=== PATIENT | female | born 2000 | race Caucasian/White ===

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

== ENCOUNTER → 2019-05-15 | Outpatient (CLI) | payer OTHER, SELFPAY ==
[2019-04-09 11:57] VITALS: BMI 24.0
--- NOTE | 2019-05-15 13:06 | RAD_ITS ---
STUDY: X-RAY CHEST REASON FOR EXAM: Female, 18 years old. Positive TB test TECHNIQUE: Frontal and lateral views of the chest COMPARISON: None. FINDINGS: The lungs are clear. There are no pleural effusions. There is no pneumothorax. The heart is normal in size. The visualized osseous structures are within normal limits. RAD/Chest PA and Lateral IMPRESSION: Clear lungs. Electronically Signed: Tobias Villareal, at 14:01 EDT Tel , Service support ,
[2019-05-15 14:07] LABS: T4 Free Direct 1.03 ng/dL (0.76-1.46); Thyroid Stim Hormone (TSH) 0.84 uIU/mL (0.358-3.74)
[2019-05-18 18:45] LABS: QNTFERON TB Mitogen Value > 10.00 IU/mL (.); QNTFERON TB Nil Value 0.07 IU/mL (.); QNTFERON TB1+ Ag Value 0.14 IU/mL (.); QNTFERON TB2+ Ag Value 0.09 IU/mL (.)
[2019-05-19 16:34] LABS: V-Zoster IgG (Immunity) 278 index (Immune >165)
[2019-05-19 16:35] LABS: QNTIFERON TB Positive Criteria Negative (Negative)
== END | disposition home or self-care (01) ==
LOC: MTLAB 13:04
PROVIDERS: Family Provider Pediatrics; PCP Pediatrics; Referring Provider Pediatrics; Visit Provider Pediatrics
DX: R76.11 Nonspecific reaction to tuberculin skin test without active tuberculosis (principal); E04.1 Nontoxic single thyroid nodule; Z86.19 Personal history of other infectious and parasitic diseases
CPT/HCPCS: 36415; 71046; 84439; 84443; 86480; 86787

== ENCOUNTER → 2019-09-09 | Outpatient (CLI) | payer OTHER, SELFPAY ==
[2019-09-09 06:25] VITALS: BMI 24.0
[2019-09-09 13:45] LABS: Absolute Lymphocyte Count 0.99 X10^3/uL (0.83-4.51); Absolute Neutrophil Count 3.6 X10^3/uL (2.0-7.7); Basophil# 0.02 X10^3/uL; Basophil% 0.4 % (0-1); Eosinophil# 0.09 X10^3/uL; Eosinophils% 1.7 % (0-5); Hematocrit 40.6 % (37-47); Hemoglobin 13.3 g/dL (12.0-15.0); Lymphocyte # 0.99 X10^3/ul (4.0); Lymphocyte % 18.5 % (19-41); Mean Corp Hgb Conc 32.8 g/dL (32-36); Mean Corpuscular Hgb 28.9 pg (27.0-32.0); Mean Corpuscular Volume 88.3 fL (81-99); Mean Platelet Vol. 9.4 fl (6.2-12.0); Monocyte# 0.61 X10^3/uL; Monocyte% 11.4 % (0-10); NRBC Flagged by Analyzer 0 % (0-5); Neutrophil # 3.62 X10^3/uL (2.7-7.7); Neutrophil % 67.8 % (47-70); Platelet Count 175 K/mm3 (150-450); RBC Distribution Width SD 42.1 fl (35.1-43.9); White Blood Count 5.3 K/mm3 (4.4-11.0)
[2019-09-09 14:02] LABS: AST(SGOT) 518 U/L (15-37); Bilirubin, Direct 0.17 mg/dL (0.00-0.30); LDH 281 U/L (84-246)
[2019-09-14 10:30] LABS: Immunoglobulin E 56 IU/mL (6-495)
== END | disposition home or self-care (01) ==
PROVIDERS: Family Provider Pediatrics; PCP Pediatrics; Referring Provider Internal Medicine Critical Care Medicine; Visit Provider Internal Medicine Critical Care Medicine
DX: J45.51 Severe persistent asthma with (acute) exacerbation (principal); J30.2 Other seasonal allergic rhinitis; Z79.899 Other long term (current) drug therapy
CPT/HCPCS: 36415; 82247; 82248; 82785; 83615; 84450; 85025

== ENCOUNTER → 2020-01-14 09:37 | Outpatient (CLI) | payer OTHER, SELFPAY ==
[2020-01-14 08:54] VITALS: BMI 25.0
--- NOTE | 2020-01-14 09:39 | RAD_ITS ---
STUDY: X-RAY CHEST REASON FOR EXAM: Female, 19 years old. ASTHMA -- general illness x 2 weeks, SOB TECHNIQUE: PA and lateral views of the chest. COMPARISON: 05/15/2019 FINDINGS: The lungs are clear and expanded. There is no demonstrated pleural abnormality. Normal size heart. Normal mediastinum and suzan. Normal visualized pulmonary arteries. Normal visualized aortic arch and descending thoracic aorta. Normal visualized thoracic spine. Normal visualized ribs, clavicles, and shoulders. There is no demonstrated abnormality of the visualized soft tissue structures of the upper abdomen. RAD/Chest PA and Lateral IMPRESSION: Normal x-ray examination of the chest. Electronically Signed: Sukhjinder Madrid MD at 13:49 EST Tel , Service support ,
== END ==
PROVIDERS: PCP Pediatrics; Referring Provider Nurse Practitioner Acute Care; Visit Provider Nurse Practitioner Acute Care
DX: J11.1 Influenza due to unidentified influenza virus with other respiratory manifestations (principal); R06.02 Shortness of breath
CPT/HCPCS: 71046; 87633

== ENCOUNTER → 2020-08-04 17:35 | Outpatient (CLI) | payer OTHER, SELFPAY ==
[2020-06-29 14:10] VITALS: BMI 24.0
== END ==
PROVIDERS: Referring Provider Family Medicine; Visit Provider Family Medicine
DX: Z03.818 Encounter for observation for suspected exposure to other biological agents ruled out (principal)
CPT/HCPCS: 87635; U0003

== ENCOUNTER → 2020-09-01 07:46 | Outpatient (CLI) | payer OTHER, SELFPAY ==
[2020-06-29 14:10] VITALS: BMI 24.0
== END ==
PROVIDERS: Referring Provider Family Medicine; Visit Provider Family Medicine
DX: Z03.818 Encounter for observation for suspected exposure to other biological agents ruled out (principal)
CPT/HCPCS: 87635; U0003

== ENCOUNTER → 2020-09-15 10:28 | Outpatient (CLI) | payer OTHER, SELFPAY ==
[2020-06-29 14:10] VITALS: BMI 24.0
== END ==
PROVIDERS: Referring Provider Family Medicine; Visit Provider Family Medicine
DX: Z03.818 Encounter for observation for suspected exposure to other biological agents ruled out (principal)
CPT/HCPCS: 87635; U0003

== ENCOUNTER → 2020-09-29 12:07 | Outpatient (CLI) | payer OTHER, SELFPAY ==
[2020-06-29 14:10] VITALS: BMI 24.0
== END ==
PROVIDERS: Referring Provider Family Medicine; Visit Provider Family Medicine
DX: Z03.818 Encounter for observation for suspected exposure to other biological agents ruled out (principal)
CPT/HCPCS: 87635; U0003

== ENCOUNTER → 2021-06-14 15:40 | Outpatient (CLI) | payer OTHER, SELFPAY ==
--- NOTE | 2021-06-14 15:45 | RAD_ITS ---
INDICATION: positive PPD EXAMINATION/TECHNIQUE: X-RAY - XR Chest 2 Views COMPARISON: None. FINDINGS: The lungs are clear. The cardiomediastinal silhouette is unremarkable. No pleural effusion or pneumothorax. No acute osseous abnormalities. RAD/Chest PA and Lateral IMPRESSION: No acute radiographic abnormalities. Specifically, no consolidation or cavitary lesions to suggest active TB. Electronically Signed: Owen Ulloa MD at 16:05 EDT Tel , Service support ,
== END ==
PROVIDERS: Referring Provider Nurse Practitioner Acute Care; Visit Provider Nurse Practitioner Acute Care
DX: R76.11 Nonspecific reaction to tuberculin skin test without active tuberculosis (principal)
CPT/HCPCS: 71046

== ENCOUNTER 2021-12-14 08:00 | Outpatient (CLI) | payer OTHER, SELFPAY ==
--- NOTE | 2021-12-14 08:09 | MRI_ITS ---
STUDY: MRI BRAIN WITH AND WITHOUT CONTRAST REASON FOR EXAM: Female, 21 years old. SECTOR OR ARCUATE DEFECTS BILATERAL TECHNIQUE: Standardized multiplanar fat and water weighted pulse sequences were obtained. IV 13 cc dotarem was administered for the contrast portion of the examination. COMPARISON: None. FINDINGS: Normal size of the ventricles and extra-axial spaces for the patient''s age. Normal white matter tracts of the supratentorial brain. There is no evidence for recent intracranial ischemia or other cause of cytotoxic edema on diffusion weighted imaging (DWI). For Normal T2* images of the brain without demonstrated susceptibility artifact. There is no demonstrated hemosiderin stain. Normal bilateral basal ganglia. Normal thalami. There is no extra-axial fluid accumulation. Normal flow voids within the major intracranial circulation suggesting patency by spin echo criteria. Normal venous enhancement. There is no enhancing intra-axial or extra-axial abnormality. Normal sella turcica, pituitary gland, infundibular stalk, optic chiasm and hypothalamus. Normal tectal plate and pineal gland. Normal midbrain, mera and medulla. Normal cerebellum. Normal basal cisterns. Normal bilateral temporal bones. Normal bilateral internal auditory canals. No demonstrated orbital abnormality, within the constraints of a routine brain study. Normal visualized paranasal sinuses. Normal calvarium and skull base. Normal visualized soft tissue structures. Normal visualized upper cervical spine. MRI/Brain W/WO Contrast IMPRESSION: Normal unenhanced and enhanced MRI of the brain. Electronically Signed: Sukhjinder Madrid MD at 9:51 EST ,
== END 2021-12-14 23:59 | disposition short-term general hospital (02) ==
PROVIDERS: PCP Family Medicine; Referring Provider Ophthalmology; Visit Provider Ophthalmology
DX: H53.433 Sector or arcuate defects, bilateral (principal)
CPT/HCPCS: 70553; A9575

== ENCOUNTER → 2023-11-12 | Outpatient (CLI) | payer OTHER, SELFPAY ==
--- NOTE | 2023-11-12 11:46 | US_ITS ---
STUDY: THYROID ULTRASOUND REASON FOR EXAM: Female, 23 years old. NODULES TECHNIQUE: Ultrasound evaluation of the thyroid was performed with real-time and static skinner-scale imaging. COMPARISON: Thyroid ultrasound dated February 11, 2018 FINDINGS: RIGHT LOBE: The right lobe of the thyroid gland measures 4.4 x 2.0 x 1.7 cm. There is a heterogeneous echotexture. Diffuse primarily hypodense well circumscribed nodules are scattered throughout the thyroid gland most likely due to hyperplastic nodules/multinodular goiter. The largest nodule on the right measures 2.0 x 1.5 cm in the lower pole. LEFT LOBE: The left lobe of the thyroid gland measures 3.7 x 1.3 x 1.2 cm. There is a heterogeneous echotexture. Diffuse primarily hypodense well circumscribed nodules are scattered throughout the left lobe of the thyroid gland most likely due to hyperplastic nodules/multinodular goiter. The largest nodule on the right measures 0.8 cm in the upper pole. ISTHMUS: The isthmus measures 5 mm. The regional lymph nodes are normal. US/Thyroid IMPRESSION: Interval development of multiple nodules throughout the thyroid gland, increased in number from what was seen on the 2018 study 1. Multinodular goiter Electronically Signed: Lance Kinney MD at 23:58 EST ,
== END | disposition home or self-care (01) ==
PROVIDERS: PCP Family Medicine; Referring Provider Family Medicine; Visit Provider Family Medicine
DX: E04.2 Nontoxic multinodular goiter (principal)
CPT/HCPCS: 76536

== ENCOUNTER → 2025-10-07 | Outpatient (CLI) | payer OTHER, SELFPAY | END | disposition home or self-care (01) | LOC: LABSPEC 16:22 | PROVIDERS: PCP Family Medicine; Visit Provider Nurse Practitioner Family | DX: N89.8 Other specified noninflammatory disorders of vagina (principal) | CPT/HCPCS: 87070; 87205 ==

== ENCOUNTER → 2025-10-13 | Outpatient (CLI) | payer OTHER, SELFPAY ==
--- NOTE | 2025-10-13 11:00 | VAGW_PTH ---
PATIENT: XOCHITL SIMPSON LOC: [facility] U#:[id number] AGE/SX: ROOM: RE10/13/[address]: Dr. Gail Ruiz DO : 2000 BED: DIS: 10/13/2025 SPEC #: [id number] RECD: 10/13/25 11:25 STATUS: PATRICIA JEISON #: [id number] SANDRITA: 10/13/25 11:[address]: Gail Ruiz DEPT: SURGICAL PATHOLOGY RECD BY: Semaj Moran ENTERED: 10/13/25 11:47 SP TYPE: VAG WALL OTHR DR: Dr. Montse Almeida MD Tissues: A - Vagina, NOS Procedures: Surgery Specimen Level IV HEADER OPERATION: Vaginal wall biopsy PRE-OP DIAGNOSIS: Vaginal lesion TISSUE SUBMITTED: A- Vaginal wall lesion MICROSCOPIC DIAGNOSIS A. Vaginal wall, lesion, biopsy: - Polypoid granulation tissue. MICROSCOPIC DESCRIPTION Slides are reviewed. GROSS DESCRIPTION A. Received in formalin labeled patient's name and date of are multiple red tissue fragments, 0.4 x 0.4 x 0.1 cm in aggregate. Entirely submitted in 1 cassette. Entirety of the specimen may not survive processing. PR 10/13/2025 CPT:53911
--- OUTSIDE RECORDS SUMMARY | 2025-10-13 12:27 | XMS RPT_ITS | CCD ---
Author Organization [facility] Care Team Providers Care Area Captain Name Role Phone MELANI DUONG Attending Unavailable IMCA Referring Unavailable IMCA Primary Care Unavailable MELANI DUONG Attending Unavailable IMCA Referring Unavailable IMCA Primary Care Unavailable MELANI DUONG Referring Unavailable IMCA Primary Care Unavailable MELANI DUONG Attending Unavailable IMCA Referring Unavailable IMCA Primary Care Unavailable MELANI DUONG Attending Unavailable IMCA Referring Unavailable IMCA Primary Care Unavailable MELANI DUONG Referring Unavailable IMCA Primary Care Unavailable Dr. Montse Almeida Primary Care Provider Dr. Montse Almeida Referring Provider Dr. Dexter Peraza Attending Provider [phone] Dexter Peraza MD Unavailable [phone] Bronson Perez MD Unavailable [phone] Montse Almeida MD Primary Care Provider Melani Duong MD Unavailable Montse Almeida MD Primary Care Provider SHIPMAN, YASSIN Referring Unavailable MONTSE ALMEIDA Primary Care Unavailable ROSALEE WEISS Referring Unavailable MONTSE ALMEIDA Primary Care Unavailable ROSALEE WEISS Attending Unavailable SELF Referring Unavailable MONTSE ALMEIDA Primary Care Unavailable Montse Almeida MD Primary Care Provider SHIPMAN, YASSIN Referring Unavailable MONTSE ALMEIDA Primary Care Unavailable SHIPMAN, YASSIN Referring Unavailable MIEDEL, MONTSE E Primary Care Unavailable SHIPMAN, YASSIN Attending Unavailable SHIPMAN, YASSIN Referring Unavailable MIEDEL, MONTSE E Primary Care Unavailable SHIPMAN, YASSIN Referring Unavailable MIEDEL, MONTSE E Primary Care Unavailable SHIPMAN, YASSIN Referring Unavailable MIEDEL, MONTSE E Primary Care Unavailable SHIPMAN, YASSIN Referring Unavailable MIEDEL, MONTSE E Primary Care Unavailable SHIPMAN, YASSIN Attending Unavailable SHIPMAN, YASSIN Referring Unavailable MIEDEL, MONTSE E Primary Care Unavailable SHIPMAN, YASSIN Referring Unavailable MIEDEL, MONTSE E Primary Care Unavailable SELF Referring Unavailable SHIPMAN, YASSIN Attending Unavailable MIEDEL, MONTSE E Primary Care Unavailable SHIPMAN, YASSIN Referring Unavailable MIEDEL, MONTSE E Primary Care Unavailable Miedel, Montse Primary Care Unavailable Miedel, Montse Referring Unavailable Hailee JEFFREY, Delaney Attending Unavailable Miedel, Montse Referring Unavailable Darleen Pascual Attending Unavailable John Kirby Attending Unavailable Miedel, Montse Primary Care Unavailable Allergies Allergy Classification Reported Allergen(s) Allergy Type Date of Onset Reaction(s) Facility (15 sources) Seasonal allergy; Translations: [SEASONAL ALLERGIES] Propensity to adverse reactions (disorder) 7 Cough [facility] Repository (15 sources) rifapentine; Translations: [RIFAPENTINE] Drug Allergy 9 Other: See Comments [facility] (2 sources) Environmental Allergies: Uncoded; Translations: [Environmental Allergies: Uncoded] Allergy to substance 3 SINUS CONGESTION [facility] (1 source) rifapentine Drug Allergy 5 [facility] Repository Medications Current Medications Medication Drug Class(es) Dates Sig (Normalized) Sig (Original) [id number] actuat albuterol 0.09 mg/actuat metered dose inhaler (16 sources) beta2-Adrenergic Agonist Start: 11-16-2021 End: 05-31-2023 take 1 puff(s) by inhalation every four hours Albuterol Sulfate Active 1 PUFF INHALATION Q4H 8.5 May 31, 2023 11:24am Start: 02-14-2018 End: 11-16-2021 take 1 puff(s) by inhalation every four hours Albuterol Sulfate Discontinued 1 PUFF INHALATION Q4H February 13, 2018 11:00pm November 16, 2021 8:09am ALBUTEROL SULFAT E (PROAIR HFA INHALATION) Inhale as instructed. Active ALBUTEROL SULFAT E (PROAIR HFA INHALATION) Inhale as instructed. 0 Active Comment on above: Inhale as instructed . azelastine hydrochloride 0.206 mg/actuat metered dose nasal spray (16 sources) Histamine-1 Receptor Antagonist Start: 0 End: 3 take 1 spray(s) nasal route twice daily Azelastine Active 1 SPRAY INTRANASAL TWICE A DAY 3 March 25, 2023 12:19pm administer into each nostril azelastine HCl ( AZELASTINE NASAL) Use in the nose. Active azelastine HCl ( AZELASTINE NASAL) Use in the nose. 0 Active Comment on above: Use in the nose. fexofenadine hydrochloride 180 mg oral tablet (17 sources) Histamine-1 Receptor Antagonist Start: 11-20-19 End: 10-30-20 take 1 tablet by mouth once daily fexofenadine (CHRISTINE) 180 mg tablet Take 1 tablet by mouth once daily. 04/03/2019 Active Comment on above: Take 1 tablet by nissa once daily. fluticasone propionate 0.05 mg/actuat metered dose nasal spray (12 sources) Corticosteroid Start: 02-17-20 fluticasone (FLONASE) 50 mcg/actuation nasal spray instill 1 spray into each nostril one to two times a day 02/16/2019 Active Comment on above: instill 1 spray into each nostril one to two times a day Fluticasone Furoate-Vilanterol (18 sources) Corticosteroid, beta2-Adrenergic Agonist Start: 10-30-20 Fluticasone Furoate-Vilanterol (Breo Ellipta) 200-25 mcg/dose blister with device Active 1 INH INHALATION Q24H October 30, 2023 8:09am Start: 12-18-2022 End: 10-30-2023 Fluticasone Furoate-Vilanter ol (Breo Ellipta) 200-25 mcg/dose blister with device Discontinued 1 INH INHALATION Q24H December 18, 2022 9:32am October 30, 2023 8:10am Start: 10-18-2022 End: 12-18-2022 Fluticasone Furoate-Vilanter ol (Breo Ellipta) 200-25 mcg/dose blister with device Discontinued 1 INH INHALATION Q24H October 18, 2022 2:34pm December 18, 2022 9:32am Start: 12-05-2020 End: 10-18-2022 Fluticasone Furoate-Vilanter ol (Breo Ellipta) 200-25 mcg/dose blister with device Discontinued 1 INH INHALATION Q24H December 05, 2020 12:15pm October 18, 2022 2:39pm Start: 04-29-2020 End: 12-05-2020 Fluticasone Furoate-Vilanter ol (Breo Ellipta) 200-25 mcg/dose blister with device Discontinued 1 INH INHALATION Q24H 60 April 29, 2020 7:27am December 05, 2020 12:16pm Start: 02-14-2018 End: 04-29-2020 Fluticasone Furoate-Vilanter ol (Breo Ellipta) 200-25 mcg/dose blister with device Discontinued 1 INH INHALATION Q24H February 13, 2018 11:00pm April 29, 2020 7:27am Start: 12-23-2017 fluticasone-vi lanterol (BREO ELLIPTA) 200-25 mcg/dose inhaler 12/23/2017 Active levalbuterol 0.417 mg/ml inhalation solution (20 sources) beta2-Adrenergic Agonist Start: 11-27-2019 End: 10-18-2022 take 1.25 mg by inhalation every four hours Levalbuterol Hcl (Xopenex) 1.25 mg/3 mL solution for nebulization Active 1.25 MG INHALATION Q4H October 18, 2022 2:38pm Start: 02-14-2018 End: 11-27-2019 Levalbuterol Hcl (Xopenex Co ncentrate) 1.25 mg/0.5 mL solution for nebulization Discontinued 1.25 MG INHALATION Q4H November 17, 2019 2:16pm November 27, 2019 1:40pm Levalbuterol HCl (XOPENEX) 1.25 mg/0.5 mL nebulizer solution Use 1 Ampule via nebulizer every 4 hours as needed. Active Comment on above: Use 1 Ampule via neb ulizer every 4 hours as needed. mometasone furoate 0.05 mg/actuat metered dose nasal spray (16 sources) Corticosteroid Start: 8 End: 3 take 1 spray(s) nasal route once daily Mometasone Active 2 SPRAY INTRANASAL DAILY November 22, 2022 1:06pm administer into each nostril End: 12-14-2024 MOMETASONE FUROATE (NASONEX NASAL) Use in the nose. 12/14/2024 Discontinued (Dosage adjustment) MOMETASONE FUROA TE (NASONEX NASAL) Use in the nose. Active MOMETASONE FUROA TE (NASONEX NASAL) Use in the nose. 0 Active Comment on above: Use in the nose. montelukast 10 mg oral tablet (20 sources) Leukotriene Receptor Antagonist Start: 8 End: 3 take 1 tablet by mouth once daily montelukast (SINGULAIR) 10 mg tablet Take 10 mg by mouth once daily. 10 05/09/2018 Active Comment on above: Take 10 mg by mouth once daily. Completed/Discontinued Medications Medication Drug Class(es) Dates Sig (Normalized) Sig (Original) 30 actuat aclidinium bromide 0.4 mg/actuat dry powder inhaler (1 source) End: 02-17-2024 aclidinium bromide (TUDORZA PRESSAIR) 400 mcg/actuation aepb inhaler Inhale 1 Puff as instructed. 0 02/17/2024 Discontinued (Discontinued by Patient) Comment on above: Inhale 1 Puff as ins tructed. amoxicillin 875 mg / clavulanate 125 mg oral tablet (1 source) Penicillin-class Antibacterial Start: 10-07-2018 End: 11-20-2018 take 1 tablet by mouth twice daily Amoxicillin-Pot Clavulanate (Augmentin) 875-125 mg tablet Discontinued 1 TABLET PO TWICE A DAY October 07, 2018 12:00am November 20, 2018 7:36am azithromycin 250 mg oral tablet (3 sources) Macrolide Antimicrobial Start: 01-07-2020 End: 01-14-2020 take 250 mg by mouth once daily Azithromycin Discontinued 250 MG PO daily January 07, 2020 12:00am January 14, 2020 9:07am Start: 11-10-2018 End: 11-20-2018 take 250 mg by mouth once daily Azithromycin Discontinued 250 MG PO daily November 10, 2018 12:00am November 20, 2018 7:36am Start: 07-22-2018 End: 07-28-2018 take 250 mg by mouth once daily Azithromycin Discontinued 250 MG PO daily July 21, 2018 11:00pm July 28, 2018 9:55am benzonatate 200 mg oral capsule (2 sources) Non-narcotic Antitussive Start: 11-12-2018 End: 10-18-2022 take 200 mg by mouth three times daily Benzonatate Discontinued 200 MG PO THREE TIMES A DAY February 18, 2019 10:28am October 18, 2022 2:33pm dexamethasone 6 mg oral tablet (1 source) Corticosteroid Start: 11-21-2021 End: 12-11-2021 take 1 tablet by mouth once daily Dexamethasone (Decadron) 6 mg tablet Discontinued 6 MG PO DAILY November 21, 2021 12:00am December 11, 2021 7:51am doxycycline hyclate 100 mg oral tablet (2 sources) Tetracycline-class Drug Start: 01-14-2020 End: 06-29-2020 take 100 mg by mouth twice daily Doxycycline Hyclate Discontinued 100 MG PO TWICE A DAY January 14, 2020 12:00am June 29, 2020 1:09pm Start: 02-24-2019 End: 04-09-2019 take 100 mg by mouth twice daily Doxycycline Hyclate Discontinued 100 MG PO TWICE A DAY February 23, 2019 11:00pm April 09, 2019 10:21am 21 day ethinyl estradiol 0.149166 mg/hr / etonogestrel 0.005 mg/hr vaginal system (18 sources) Progestin, Estrogen Start: 08-11-2024 End: 12-14-2024 Etonogestrel-Ethinyl Estradiol (ELURYNG) 0.12-0.015 mg/24 hr vaginal ring Use 1 Each vaginally as directed. Insert vaginally and leave in place for 3 consecutive weeks, then remove for 1 week. 3 Each 3 08/11/2024 12/14/2024 Discontinued (Duplicate Entry) Start: 10-18-2023 ELURYNG 0.12-0 .015 mg/24 hr vaginal ring INSERT RING VAGINALLY, WEAR FOR 3 WEEKS, AND REMOVE FOR [address] NEW RING AND REPEAT. 10/18/2023 Active Comment on above: INSERT RING VAGINALL Y, WEAR FOR 3 WEEKS, AND REMOVE FOR [address] NEW RING AND REPEAT. 60 actuat formoterol fumarate 0.005 mg/actuat / mometasone furoate 0.1 mg/actuat metered dose inhaler (1 source) Corticosteroid, beta2-Adrenergic Agonist End: take 2 puff(s) by inhalation twice daily mometasone-formoter ol (DULERA) 100-5 mcg/actuation inhaler Inhale 2 Puffs as instructed twice daily. 0 02/17/2024 Discontinued (Discontinued by Patient) Comment on above: Inhale 2 Puffs as in structed twice daily. 12 hr guaiFENesin 1200 mg extended release oral tablet (1 source) Start: End: take 1200 mg by mouth every twelve hours Guaifenesin Discontinued 1200 MG PO Q12H July 21, 2018 11:00pm October 07, 2018 3:04pm ipratropium bromide 0.2 mg/ml inhalation solution (14 sources) Anticholinergic Start: End: take 0.25 mg by inhalation every eight hours Ipratropium [place] Discontinued 0.25 MG INHALATION Q8H 150 February 27, 2019 2:34pm October 18, 2022 2:32pm ipratropium (ATR OVENT) 0.02 % nebulizer solution Use 0.5 mg via nebulizer four times daily. Active Comment on above: Use 0.5 mg via nebul izer four times daily. isoniazid 300 mg oral tablet (2 sources) Antimycobacterial Start: 01-14-20 End: 06-29-20 take 300 mg by mouth once daily Isoniazid Discontinued 300 MG PO DAILY January 14, 2020 12:00am June 29, 2020 1:09pm Start: 09-09-2019 End: 01-14-2020 Isoniazid Discontinued PO Oc tober 2018 11:00pm January 14, 2020 9:15am levoFLOXacin 500 mg oral tablet (1 source) Quinolone Antimicrobial Start: 07-28-2018 End: 10-07-2018 take 500 mg by mouth once daily Levofloxacin Discontinued 500 MG PO DAILY July 27, 2018 11:00pm October 07, 2018 3:04pm loratadine 10 mg oral tablet (1 source) Start: 02-14-2018 End: 02-18-2019 take 1 tablet by mouth once daily Loratadine (Claritin) 10 mg tablet Discontinued 10 MG PO daily February 13, 2018 11:00pm February 18, 2019 10:15am nystatin [id number] unt/ml oral suspension (3 sources) Polyene Antifungal Start: 01-14-2020 End: 10-18-2022 Nystatin Discontinued 5 ML MUCOUS MEM THREE TIMES A DAY December 11, 2021 8:08am October 18, 2022 2:32pm swish and swallow 5 cc three times per day for 10 days predniSONE 10 mg oral tablet (13 sources) Start: 11-16-2021 End: 12-11-2021 Prednisone Discontinued 10 MG PO daily November 24, 2021 8:45am December 11, 2021 7:51am take 4 tabs for three days, then 3 tabs for three days, then 2 tabs for three days, then 1 tab for 3 days Start: 08-19-2020 End: 12-14-2020 Prednisone Discontinued 10 M G PO daily August 18, 2020 11:00pm December 14, 2020 8:53am take 4 tabs for three days, then 3 tabs for three days, then 2 tabs for three days, then 1 tab for 3 days Start: 01-14-2020 End: 03-17-2020 Prednisone Discontinued 10 M G PO daily January 14, 2020 12:00am March 17, 2020 6:53am take 4 tabs for three days, then 3 tabs for three days, then 2 tabs for three days, then 1 tab for 3 days Start: 09-09-2019 End: 01-14-2020 take 10 mg by mouth once daily Prednisone Discontinued 10 MG PO DAILY January 07, 2020 12:50pm January 14, 2020 9:07am Start: 02-21-2019 End: 04-09-2019 Prednisone Discontinued 10 M G PO daily February 23, 2019 11:00pm April 09, 2019 10:21am take 4 tabs for three days, then 3 tabs for three days, then 2 tabs for three days, then 1 tab for 3 days Start: 11-20-2018 End: 12-30-2018 Prednisone Discontinued 10 M G PO daily November 20, 2018 12:00am December 30, 2018 12:36pm take 4 tabs for three days, then 3 tabs for three days, then 2 tabs for three days, then 1 tab for 3 days Start: 07-22-2018 End: 11-20-2018 take 60 mg by mouth once daily at mealtime Prednisone Discontinued 60 MG PO daily November 14, 2018 12:00am November 20, 2018 7:37am administer with food or milk Problems Active Problems Problem Classification Problem Date Documented Da te Episodic/Chronic Asthma (2 sources) Asthma; Translations: [Unspecified asthma, uncomplicated] 10-30-2023 Chronic Chronic obstructive pulmonary disease and bronchiectasis (1 source) Chronic obstructive pulmonary disease, unspecified; Translations: [Chronic obstructive pulmonary disease, unspecified] Onset: 03-04-2025 Chronic Disorders of teeth and jaw (1 source) Loss of teeth due to extraction; Translations: [Partial loss of teeth, unspecified cause, unspecified class] 12-18-2019 Episodic Genitourinary symptoms and ill-defined conditions (1 source) Polyuria; Translations: [Polyuria] 12-14-2024 Episodic Immunizations and screening for infectious disease (1 source) Mantoux: positive; Translations: [Nonspecific reaction to tuberculin skin test without active tuberculosis] 06-12-2021 Episodic Mycoses (1 source) Candidiasis of mouth; Translations: [Candidal stomatitis] 12-11-2021 Episodic Other endocrine disorders (1 source) Polycystic ovary syndrome; Translations: [Polycystic ovarian syndrome] 10-30-2023 Chronic Other screening for suspected conditions (not mental disorders or infectious disease) (1 source) Cancer cervix screening status; Translations: [Encounter for screening for malignant neoplasm of cervix] 08-11-2024 Episodic Other skin disorders (1 source) Hirsutism; Translations: [Hirsutism] 08-11-2024 Episodic Other upper respiratory disease (1 source) Seasonal allergy; Translations: [Other seasonal allergic rhinitis] 02-17-2019 Chronic Other upper respiratory disease (1 source) Other seasonal allergic rhinitis; Translations: [Allergic rhinitis, cause unspecified] 10-30-2023 Chronic Other upper respiratory infections (1 source) Posterior rhinorrhea; Translations: [Postnasal drip] 02-17-2019 Episodic Thyroid disorders (20 sources) Thyroid nodule; Translations: [Nontoxic single thyroid nodule] Onset: 02-17-2024 12-18-2019 Chronic Unclassified (2 sources) Thyroid mass Onset: 03-17-2019 Past or Other Problems Problem Classification Problem Date Documented Da te Episodic/Chronic Other skin disorders (1 source) Hirsutism; Translations: [Hirsutism] Onset: 08-11-2024 Episodic Results Test Name Value Interpretation Reference Range Facil ity Health Economist Office Visit Reporton 04-08-2025 Health Economist Office Visit Report [facility] [address], [address] [place] [address] OFFICE VISIT Date of Service: 04/08/25 MR#: [id number] Acct: [id number] Name: MOJGAN SIMPSON Rep #: [id number] : 2000 Provider: MILADY Sierra Age/Sex: 24/F [place] [facility] [place]: Signed Intake Vital Signs 07/20/24 09:21 03/04/25 08:02 04/08/25 10:50 Height 5 ft 7 in 5 ft 7 in 5 ft 7 in Weight: 156 lb 15.506 oz 145 lb 150 lb 2 oz BMI 24.5 22.7 23.5 BP 124/86 H 111/69 131/82 H Blood Pressure Location Lt brachial Position Sitting Respiration 14 18 Pulse 87 68 Pulse Source Monitor Temp 98 F 97.4 F L Temperature Source Temporal Artery Pulse Oximetry (%) 98 98 Oxygen Delivery Method room air 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) Chief Complaint: Annual Technical Editor Required: No Is patient in pain?: No Allergies Environmental Allergies: Uncoded Allergy (Intermediate, Verified 03/04/25 13:20) SINUS CONGESTION rifapentine Allergy (Intermediate, Verified 03/04/25 13:20) shaking and fatigue Medications ???Medication ???Instructions ???Recorded ???Confirmed ???Type etonogestrel 0.12 mg-ethinyl vag ring vaginal 10/30/23 04/08/25 History estradiol 0.015 mg/24 hr vaginal ring (EluRyng) albuterol sulfate 90 mcg/actuation 1 puff inhalation Q4H #8.5 grams 03/04/25 04/08/25 Rx aerosol inhaler azelastine 205.5 mcg (0.15 %) 1 spray intranasal BID #3 ea 03/0404/08/25 Rx nasal spray fexofenadine 180 mg tablet 180 mg PO DAILY #60 tabs 03/04/25 04/08/25 Rx ([facility]) fluticasone furoate 200 1 inh inhalation Q24H #90 ea 03/0404/08/25 Rx mcg-vilanterol 25 mcg/dose inhalation powder (Breo Ellipta) levalbuterol HCl 1.25 mg/3 mL 1.25 mg (3 mL) inhalation Q4H #90 03/04/25 04/08/25 Rx solution for nebulization mL mometasone 50 mcg/actuation nasal 2 spray intranasal DAILY #17 gram s 03/04/25 04/08/25 Rx spray montelukast 10 mg tablet 10 mg PO QPM #30 tabs 03/04/25 Rx Is last menstrual period known: Yes Last Menstrual Period: 03/24/25 Post menopausal: No Patient : No : No [facility] History PCOS (polycystic ovarian syndrome) PND (post-nasal drip) Seasonal allergies Uninodular thyroid nodule Asthma Surgical History History of wisdom tooth extraction Family History Sister Asthma Brother Asthma Social History (Updated 04/08/25 @ 10:54 by Jacki Manning) household members: spouse current occupational status: employed current occupation: [employer] Smoking Status: Never smoker alcohol intake: never substance use type: does not use seatbelt use: always do you feel safe at home: Yes additional social history: - Joaquim- Nurse History 0 Elective abortions Hx Para Spontaneous abortions Hx # Term Pregnancies Ectopic pregnancies Hx # Pregnancies Multiple births # of living children HPI Encounter for routine gynecological examination Details: MOJGAN ALARCON is a 24 year old who presents for annual exam. She would like to discuss her PCOS as well as control. Last PAP:07/2024 @ [facility] History of abnormal PAP: No Last mammogram: N/A History of abnormal mammogram: N/A Colon cancer screening:Age 44 Other preventative health care screenings:Montse Almeida Female Reproductive History Last Menstrual Period: 03/24/25 Cycle Length: 21-35 Questions: metorrhagia: No, sexually active: Yes, dyspareunia: No and PCB: No ROS Const Constitutional: Denies chills, fatigue, fever(s), headache(s) or weight loss Eyes Eyes: Denies change in vision ENT ENT: Denies dizziness Resp Resp: Denies cough GI GI: Denies abdominal pain, constipation or nausea : Denies difficulty voiding, dysuria, hematuria, nipple discharge, pelvic pain, prolapse symptoms, urinary incontinence, vaginal discharge, vaginal dryness, vaginal odor or vaginal pruritus Skin Skin/Breast: Denies alopecia, rash, breast mass, breast pain, breast skin changes or nipple discharge Neuro Neuro: Denies dizziness Psych Psych: Denies anxiety or depression Endo Endo: Denies cold intolerance, excessive sweating or heat intolerance Exam Const General: cooperative, healthy appearing, comfortable, no acute distress, well groomed and well hydrated Nutritional Appearance: well nourished Orientation: alert, awake and oriented x3 HENMT Head: normal to inspection and normocephalic Ears: hearing grossly normal bilaterally and external ears normal Nose: external nose normal Face and sinus: normal facial (more content not included)... Normal [facility] Pulmonary Visit Reporton Pulmonary Visit Report [facility] Pulmonary Medicine of [address] [place] [address] OFFICE VISIT Date of Service: 03/04/25 MR#: [id number] Acct: [id number] Name: MOJGAN ALARCON Rep #: [id number] : 2000 Provider: MILADY Stephen Age/Sex: 24/F Location: [facility] [place].[facility] Status: Signed Assessment and Plan Assessment and Plan (1) Asthma: Status: Chronic Qualifiers: Asthma severity: moderate Asthma persistence: persistent Asthma complication type: uncomplicated Qualified Code(s): J45.40 - Moderate persistent asthma, uncomplicated (2) PND (post-nasal drip): Status: Chronic (3) Seasonal allergies: Status: Chronic Medications: Refilled albuterol sulfate 90 mcg/actuation 1 puff inhalation Q4H 8.5 grams 11RF azelastine administer into each nostril 1 spray intranasal BID 3 ea 3RF J44.9 - Chronic obstructive pulmonary disease, unspecified fexofenadine (Christine Allergy) 180 mg PO DAILY 60 tabs 11RF fluticasone furoate-vilanterol 200-25 mcg/dose (Breo Ellipta) 1 inh inhalation Q24H 90 ea 12RF mometasone 50 mcg/actuation administer into each nostril 2 sprays intranasal DAILY 17 grams 6RF montelukast 10 mg PO QPM 30 tabs 11RF levalbuterol HCl 1.25 mg (3 mL) inhalation Q4H 90 mL 6RF Plan Details Additional Comments: Stable. No signs of exacerbation of asthma/allergies today. No change in maintenance medications. No additional testing at this time. Contact the office with any signs of new or worsening symptoms. Follow-up in 1 year. Follow Up: 1 Year HPI Appt for refills Chief Complaint: routine follow up HPI Comments Details: This patient presents to the office today to follow-up on her asthma and seasonal allergies. She is ambulatory and currently on room air. She has not recently been seen in the ED or urgent care for any respiratory illness. She has not required any antibiotics or prednisone for any breathing problems. She is a lifelong never smoker. She is compliant with the use of Breo 1 puff daily. She does report rinsing her mouth out after each use. She is also compliant with Singulair, Christine and Flonase daily. She denies any shortness of breath. She does not have any cough, sputum production or hemoptysis. She reports sinus congestion and drainage. She is not having any wheezing, chest tightness, chest pain or palpitations. Intake Vital Signs 07/20/24 09:21 03/04/25 08:02 Height 5 ft 7 in 5 ft 7 in Weight: 145 lb BMI 22.7 BP 111/69 Blood Pressure Location Lt brachial Position Sitting Respiration 18 Pulse 68 Pulse Source Monitor Temp 97.4 F L Temperature Source Temporal Artery Pulse Oximetry (%) 98 Oxygen Delivery Method room air Intake Visit Reasons: Appt for refills Chief Complaint: 6 M FU Technical Editor Required: No Accompanied by: Self Allergies Environmental Allergies: Uncoded Allergy (Intermediate, Verified 03/04/25 13:20) SINUS CONGESTION rifapentine Allergy (Intermediate, Verified 03/04/25 13:20) shaking and fatigue Medications ???Medication ???Instructions ???Recorded ???Confirmed ???Type etonogestrel 0.12 mg-ethinyl vag ring vaginal 10/30/23 03/04/25 History estradiol 0.015 mg/24 hr vaginal ring (EluRyng) albuterol sulfate 90 mcg/actuation 1 puff inhalation Q4H #8.5 grams 03/04/25 03/04/25 Rx aerosol inhaler azelastine 205.5 mcg (0.15 %) 1 spray intranasal BID #3 ea 03/0403/04/25 Rx nasal spray fexofenadine 180 mg tablet 180 mg PO DAILY #60 tabs 03/04/25 03/04/25 Rx (Christine Allergy) fluticasone furoate 200 1 inh inhalation Q24H #90 ea 03/0403/04/25 Rx mcg-vilanterol 25 mcg/dose inhalation powder (Breo Ellipta) levalbuterol HCl 1.25 mg/3 mL 1.25 mg (3 mL) inhalation Q4H #90 03/04/25 03/04/25 Rx solution for nebulization mL mometasone 50 mcg/actuation nasal 2 spray intranasal DAILY #17 gram s 03/04/25 03/04/25 Rx spray montelukast 10 mg tablet 10 mg PO QPM #30 tabs 03/04/25 Rx PFSH Medical History PCOS (polycystic ovarian syndrome) PND (post-nasal drip) Seasonal allergies Uninodular thyroid nodule Asthma Surgical History History of wisdom tooth extraction Family History Sister Asthma Brother Asthma Social History Smoking Status: Never smoker alcohol intake: never substance use type: does not use Review of Systems Resp Respiratory: Yes as per HPI Exam Const Constitutional: Positive conversant, cooperative, in no acute respiratory distress, healthy appearing, well developed, well nourished (more content not included)... Normal [facility] CNOVon 12-14-2024 CNOV Office Visit (ENAGST ) MOJGAN ALARCON ([id number]) 2000 F Date Time Provider Department 12/14/24 1:40 PM GREG SHIPMAN During your visit today, we recorded the following information about you: Pulse Blood pressure Weight Height 101/minute 139/85 67.1 kg 1.651 m Greg Shipman MD 12/14/2024 2:50 PM Signed PCP: Montse Almeida MD. Subjective The history is provided by the patient. Mojgan Alarcon is a 24 year old White female with PMHx of asthma who presented to the endocrine clinic for hyperthyroidism evaluation and management History of present illness Initial History: (02/17/24) The patient has been followed by endocrine surgery for stable thyroid nodularity with dominant 2.1 cm in the right side. Nodule was first noted around 2017 by the patient which was evaluated by biopsy and came back benign. The patient has been feeling off lately. She has noticed fine tremor mostly at work for the past couple months. 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 Interval History: Patient reports feeling okay overall. She has been noticing drinking more water especially after eating associated with frequent urination. She wakes up about 1-2 times at night to urinate Review of Systems Cardiovascular: Negative for palpitations. Genitourinary: Positive for frequency. Neurological: Negative for tremors. Endo/Heme/Allergies: Positive for polydipsia. 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 fluticasone (FLONASE) 50 mcg/actuation nasal spray instill 1 spray into each nostril one to two times a day ELURYNG 0.12-0.015 mg/24 hr vaginal ring INSERT RING VAGINALLY, WEAR FOR 3 WEEKS, AND REMOVE FOR [address] NEW RING AND REPEAT. azelastine HCl (AZELASTINE NASAL) Use in the nose. montelukast (SINGULAIR) 10 mg tablet Take 10 mg by mouth once daily. 10 fluticasone-vilantero l (BREO ELLIPTA) 200-25 mcg/dose inhaler ALBUTEROL SULFATE (PROAIR HFA INHALATION) Inhale as instructed. Levalbuterol HCl (XOPENEX) 1.25 mg/0.5 mL nebulizer solution Use 1 Ampule via nebulizer every 4 hours as needed. ipratropium (ATROVENT) 0.02 % nebulizer solution Use 0.5 mg via nebulizer four times daily. No current facility-administered medications for this visit. Objective BP 139/85 Pulse 101 Ht 5' 5 (1.65m) Wt 148 lb (67.1kg) BMI 24.63 kg/(m2). Physical examination Physical Exam Vitals and nursing note reviewed. Constitutional: General: She is not in acute distress. Neck: Thyroid: No thyromegaly. Cardiovascular: Rate and Rhythm: Normal rate and regular rhythm. Heart sounds: Normal heart sounds. Pulmonary: Effort: No respiratory distress. Breath sounds: Normal breath sounds. Neurological: General: No focal deficit present. Mental Status: She is alert. Psychiatric: Mood and Affect: Affect normal. Labs and imaging data: Reviewed Latest Ref Rng 11/19/2023 02/17/2024 TSI Qualitative Negative Positive ! TSI <0.55 IU/L 1.56 (H) TSH 0.270 - 4.200 mIU/L <0.005 (L) 0.006 (L) THYROID PEROXIDASE ANTIBODY <5.6 IU/mL 7.9 (H) Free T4 0.9 - 1.7 ng/dL 1.4 T3 79 - 165 ng/dL 169 (H) Latest Ref Rng 11/24/2024 TSH 0.270 - 4.200 mIU/L 0.525 Free T4 0.9 - 1.7 ng/dL 1.1 T4 5.5 - 10.2 ug/dL 9.1 Thyroid ultrasound on 03/03/2019 Multinodular thyroid gland as described above. Findings are similar to comparison study 02/11/2018. The right thyroid lobe is measured 4.6 cm longitudinal by 2 cm AP by 1.5 cm transverse. There is redemonstration of a mixed solid cystic hypoechoic nodule posterior lower lobe measured 2.1 x 1.7 x 1.5 cm in size. This compares to a previous measurement of 2.3 x 1.6 x 1.7 cm. There are two additional solid hypoechoic nodules within the lobe measuring 0.3 cm and 0.4 cm in size. The left thyroid lobe is measured 3.7 x 1.1 x 1.3 cm in size. There is a solid hypoechoic nodule redemonstrated within the posterior upper lobe measured 0.5 x 0.4 x 0.4 cm in size. This compares to previous measurement of 0.6 x 0.3 x 0.5 (more content not included)... Normal [facility] Comprehensive metabolic 2000 panelon 12-14-2024 Albumin [Mass/Vol] 4.2 g/dL Normal 3.9-4.9 [facility] Comment on above: Order Comment: Speci men Type: BLOOD SPECIMENOrdering Facility: [facility] Address: [address] [place] [id number] Performed By: #### 2 4323-8 ####[facility] LABORATORYCLIA [id number] [place] [address] [place] ALP [Catalytic activity/Vol] 58 U/L Normal 34-123 [facility] Comment on above: Order Comment: Speci men Type: BLOOD SPECIMENOrdering Facility: [facility] Address: [address] [place] [address] Performed By: #### 2 4323-8 ####[facility] LABORATORYCLIA [id number] [place] [address] [place] ALT With P-5'-P [Catalytic activity/Vol] 8 U/L Normal 7-38 [facility] Comment on above: Order Comment: Speci men Type: BLOOD SPECIMENOrdering Facility: [facility] Address: [address] [place] [address] Performed By: #### 2 4323-8 ####[facility] LABORATORYCLIA [id number] [address] Anion gap [Moles/Vol] 11 mmol/L Normal 8-15 [facility] Comment on above: Order Comment: Speci men Type: BLOOD SPECIMENOrdering Facility: [facility] Address: [address] [place] [address] Performed By: #### 2 4323-8 ####[facility] LABORATORYCLIA [id number] [address] [place] [facility] AST With P-5'-P [Catalytic activity/Vol] 11 U/L Low 13-35 [facility] Comment on above: Order Comment: Speci men Type: BLOOD SPECIMENOrdering Facility: [facility] Address: [address] [place] [address] Performed By: #### 2 4323-8 ####[facility] LABORATORYCLIA [id number] [address] [place] Bilirubin [Mass/Vol] 0.3 mg/dL Normal 0.2-1.3 [facility] Comment on above: Order Comment: Speci men Type: BLOOD SPECIMENOrdering Facility: [facility] Address: [address] [place] [address] Performed By: #### 2 4323-8 ####[facility] LABORATORYCLIA [id number] [place] [address] [place] Calcium [Mass/Vol] 9.4 mg/dL Normal 8.5-10.2 [facility] Comment on above: Order Comment: Speci men Type: BLOOD SPECIMENOrdering Facility: [facility] Address: [address] [place] [address] Performed By: #### 2 4323-8 ####[facility] LABORATORYCLIA [id number] [place] [address] [place] Chloride [Moles/Vol] 102 mmol/L Normal 98-107 [facility] Comment on above: Order Comment: Speci men Type: BLOOD SPECIMENOrdering Facility: [facility] Address: [address] [place] [address] Performed By: #### 2 4323-8 ####[facility] LABORATORYCLIA [id number] [address] [place] CO2 [Moles/Vol] 26 mmol/L Normal 22-30 [facility] Comment on above: Order Comment: Speci men Type: BLOOD SPECIMENOrdering Facility: [facility] Address: [address] [place] [address] Performed By: #### 2 4323-8 ####[facility] LABORATORYCLIA [id number] [place] [address] [place] Creatinine [Mass/Vol] 0.64 mg/dL Normal 0.58-0.96 [facility] Comment on above: Order Comment: Speci men Type: BLOOD SPECIMENOrdering Facility: [facility] Address: [address] [place] [address] Performed By: #### 2 4323-8 ####[facility] LABORATORYCLIA [id number] [address] Creatinine and Glomerular filtration rate.predicted panel (S/P/Bld) 126 mL/min/1.73m??? Normal >=60 [facility] Comment on above: Order Comment: Speci men Type: BLOOD SPECIMENOrdering Facility: [facility] Address: [address] [place] [address] Result Comment: Debora mated Glomerular Filtration Rate (eGFR) is calculated using the 2020 CKD-EPI creatinine equation. This equation utilizes serum creatinine, sex, and age as parameters. The creatinine assay has traceable calibration to isotope dilution-mass spectrometry. Refer to KDIGO guidelines for clinical interpretation. In patients with unstable renal function, e.g. those with acute kidney injury, the eGFR may not accurately reflect actual GFR. Performed By: #### 2 4323-8 ####[facility] LABORATORYCLIA [id number] [place] [address] [place] Glucose [Mass/Vol] 101 mg/dL High 74-99 [facility] Comment on above: Order Comment: Specarthur holloway Type: BLOOD SPECIMENOrdering Facility: [facility] Address: [address] [place] [address] Result Comment: The [place] Diabetes Association (ADA) provides guidance for cutoff values for fasting glucose and random glucose. The ADA defines fasting as no caloric intake for at least 8 hours. Fasting plasma glucose results between 100 to 125 mg/dL indicate increased risk for diabetes (prediabetes). Fasting plasma glucose results greater than or equal to 126 mg/dL meet the criteria for diagnosis of diabetes. In the absence of unequivocal hyperglycemia, results should be confirmed by repeat testing. In a patient with classic symptoms of hyperglycemia or hyperglycemic crisis, random plasma glucose results greater than or equal to 200 mg/dL meet the criteria for diagnosis of diabetes. Reference: Standards of Medical Care in Diabetes 2016, [place] Diabetes Association. Diabetes Care. 2016.39(Suppl 1). Performed By: #### 2 4323-8 ####[facility] LABORATORYCLIA [id number] [place] [address] [place] Potassium [Moles/Vol] 4.0 mmol/L Normal 3.7-5.1 [facility] Comment on above: Order Comment: Burke holloway Type: BLOOD SPECIMENOrdering Facility: [facility] Address: [address] [id number] Performed By: #### 2 4323-8 ####[facility] LABORATORYCLIA [id number] [place] [address] [place] Protein [Mass/Vol] 6.9 g/dL Normal 6.3-8.0 [facility] Comment on above: Order Comment: Speci men Type: BLOOD SPECIMENOrdering Facility: [facility] Address: [address] [place] [address] Performed By: #### 2 4323-8 ####[facility] LABORATORYCLIA [id number] [address] [place] Sodium [Moles/Vol] 139 mmol/L Normal 136-144 [facility] Comment on above: Order Comment: Speci men Type: BLOOD SPECIMENOrdering Facility: [facility] Address: [address] [place] [address] Performed By: #### 2 4323-8 ####[facility] LABORATORYCLIA [id number] [place] [address] [place] Urea nitrogen [Mass/Vol] 10 mg/dL Normal 7-21 [facility] Comment on above: Order Comment: Speci men Type: BLOOD SPECIMENOrdering Facility: [facility] Address: [address] [place] [address] Performed By: #### 2 4323-8 ####[facility] LABORATORYCLIA [id number] [address] [place] HbA1c (Bld)on 12-14-2024 Average glucose Estimated from glycated hemoglobin (Bld) [Mass/Vol] 94 mg/dL Normal [facility] Comment on above: Order Comment: Speci men Type: BLOOD SPECIMENOrdering Facility: [facility] Address: [address] [place] [address] Result Comment: eAG: (Estimated average glucose) is a calculated value from HgbA1c and is inside outside sales representative of the average blood glucose level in the last 2-3 month period. Performed By: #### 5 5454-3 ####[facility] LABCLIA [id number] [place] [address] [place] HbA1c (Bld) [Mass fraction] 4.9 % Normal 4.3-5.6 [facility] Comment on above: Order Comment: Speci men Type: BLOOD SPECIMENOrdering Facility: [facility] Address: [address] [place], [place] [id number] Result Comment: [place] Diabetes Association guidelines indicate that patients with HgbA1c in the range 5.7-6.4% are at increased risk for development of diabetes, and intervention by lifestyle modification may be beneficial. HgbA1c greater or equal to 6.5% is considered diagnostic of diabetes. Performed By: #### 5 5454-3 ####[facility] LABCLIA [id number] [id number] [address] [place] US THYROID/PARATHYROIDon US THYROID/PARATHYROID * * *Final Report* * * DATE OF EXAM: Dec 08 2024 9:05AM AWU 1048 - US THYROID/PARATHYROID / PROCEDURE REASON: multiple diagnoses * * * * Physician Interpretation * * * * EXAMINATION: THYROID ULTRASOUND CLINICAL HISTORY: Graves' disease Thyroid nodule TECHNIQUE: Sonography and Doppler imaging of the thyroid was performed. Images were obtained and stored in a permanent archive. MQ: UST_1 COMPARISON: Thyroid uptake 03/26/2024 RESULT: Right Lobe: 4.7 x 1.8 x 1.8 cm; homogeneous echogenicity, expected vascular flow. Left Lobe: 4.0 x 1.1 x 1.5 cm; homogeneous echogenicity, expected vascular flow. Isthmus: 0.3 cm The most suspicious thyroid nodule(s) (up to four) as below: NODULE 1: Location: Right lower pole posteriorly Size: 2.3 x 1.1 x 1.7 cm Characteristics: Composition: Solid or almost completely solid, 2 points Echogenicity: Hypoechoic, 2 points Shape: Kinrr-kecx-uexd, 0 points Margin: Smooth, 0 points Echogenic foci (add points for all that apply): None, 0 points Internal vascularity: absent Interval growth: Stable since 2018 TI-RADS Category: TR4 ACR Recommendation: Stable for greater than 5 years, as per clinical note FNA performed. NODULE 2: Location: Right upper pole Size: 0.6 x 0.4 x 0.4 cm Characteristics: Composition: Solid or almost completely solid, 2 points Echogenicity: Isoechoic, 1 point Shape: Btnet-wzug-opcw, 0 points Margin: Smooth, 0 points Echogenic foci (add points for all that apply): None, 0 points Internal vascularity: absent Interval growth: No prior available for comparison TI-RADS Category: TR3 ACR Recommendation: TI-RADS 3 nodule. No FNA or further imaging is advised. NODULE 3: Location: Left upper pole Size: 0.7 x 0.5 x 0.7 cm Characteristics: Composition: Solid or almost completely solid, 2 points Echogenicity: Hypoechoic, 2 points Shape: Sruoy-syir-pfzb, 0 points Margin: Smooth, 0 points Echogenic foci (add points for all that apply): None, 0 points Internal vascularity: absent Interval growth: No significant growth given differences in technique TI-RADS Category: TR4 ACR Recommendation: TI-RADS 4 nodule. No FNA or follow-up imaging is advised. NODULE 4: Location: Left lower pole Size: 1.0 x 0.3 x 0.6 cm Characteristics: Composition: Solid or almost completely solid, 2 points Echogenicity: Hypoechoic, 2 points Shape: Eesxw-fnqe-gqtc, 0 points Margin: Smooth, 0 points Echogenic foci (add points for all that apply): None, 0 points Internal vascularity: present Interval growth: Stable compared to the outside exam of 10/2023 TI-RADS Category: TR4 ACR Recommendation: TI-RADS 4 nodule. Follow up imaging in 1, 2, 3 and 5 years is advised. IMPRESSION: Stable posterior right thyroid nodule as noted on 2018 and for which correlation with FNA results is recommended. Other smaller nodules present, which consider follow-up depending on risk factors and comorbidities. ACR recommendations are strictly based on the size and imaging appearance at the time of the exam and do not consider stability or previous biopsy results. [employer]: [employer] Transcribe Date/Time: Dec 09 2024 2:36P Dictated by : JERAD KLINE MD This examination was interpreted and the report reviewed and electronically signed by: JERAD KLINE MD on Dec 09 2024 2:44PM EST [id number] N [facility]24 DIAMOND Telephone (ENAGST) GERIMOJGAN ROBYN ([id number]) 2000 F Date Time Provider Department 11/30/24 GREG SHIPMAN During your visit today, we recorded the following information about you: Gabriel Dyer LPN 11/30/2024 1:27 PM Signed Patient called in and said she has an appointment on the , she is questioning whether she should get the thyroid ultrasound done here or elsewhere. Gabriel Dyer LPN November 30, 2024 1:26 PM Allergies As of Date: 11/30/2024 Noted Allergy Reaction RIFAPENTINE 07/23/2019 14 - Other: See Comments Comments: Flu-Like symptoms (fever and body aches lastin ~24 hours) SEASONAL ALLERGIES 04/14/2017 3 - Cough Date Reviewed: 08/11/2024 Reviewed by: Rosalee Weiss MD - Fully Assessed Reason for Visit: Patient Question [4877] Prescriptions as of 11/30/2024 - Etonogestrel-Ethinyl Estradiol (ELURYNG) 0.12-0.015 mg/24 hr vaginal ring Use 1 Each vaginally as directed. Insert vaginally and leave in place for 3 consecutive weeks, then remove for 1 week. - fexofenadine (CHRISTINE) 180 mg tablet Take 1 tablet by mouth once daily. - fluticasone (FLONASE) 50 mcg/actuation nasal spray instill 1 spray into each nostril one to two times a day - ELURYNG 0.12-0.015 mg/24 hr vaginal ring INSERT RING VAGINALLY, WEAR FOR 3 WEEKS, AND REMOVE FOR [address] NEW RING AND REPEAT. - azelastine HCl (AZELASTINE NASAL) Use in the nose. - montelukast (SINGULAIR) 10 mg tablet Take 10 mg by mouth once daily. - fluticasone-vilantero l (BREO ELLIPTA) 200-25 mcg/dose inhaler - MOMETASONE FUROATE (NASONEX NASAL) Use in the nose. - ALBUTEROL SULFATE (PROAIR HFA INHALATION) Inhale as instructed. - Levalbuterol HCl (XOPENEX) 1.25 mg/0.5 mL nebulizer solution Use 1 Ampule via nebulizer every 4 hours as needed. - ipratropium (ATROVENT) 0.02 % nebulizer solution Use 0.5 mg via nebulizer four times daily. Problem List As Of Date 11/30/2024 Noted Resolved Hyperthyroidism [E05.90] 06/11/2024 Graves' disease [E05.00] 06/11/2024 Encounter Status:Closed by GREG SHIPMAN on 11/30/24 [facility] CNPN Telephone (ENAGST) MOJGAN ALARCON ([id number]) 2000 F Date Time Provider Department 11/30/24 GREG SHIPMAN ENSEUNST During your visit today, we recorded the following information about you: Greg Shipman MD 11/30/2024 5:02 PM Signed Please schedule thyroid ultrasound Majo Cerda PSS 12/02/2024 2:31 PM Addendum Referral Coordination Patient scheduled for:[place] Location:[place] Date: 12-07-23 Time:8:45 Prep for test:none Patient informed: spoke to patient and she voiced understanding ,21 morning till [address] [place] JAMES Lu December 02, 2024 1:13 PM Allergies As of Date: 11/30/2024 Noted Allergy Reaction RIFAPENTINE 07/23/2019 14 - Other: See Comments Comments: Flu-Like symptoms (fever and body aches lastin ~24 hours) SEASONAL ALLERGIES 04/14/2017 3 - Cough Date Reviewed: 08/11/2024 Reviewed by: Rosalee Weiss MD - Fully Assessed Reason for Visit: Procedure [88] Cmt: Thyroid ultrasound Primary Visit Diagnosis:Graves' disease [E05.00] Other Visit Diagnosis:Thyroid nodule [E04.1] Order(s):US THYROID/PARATHYROID [[id number]] Order #: [id number] FUTURE Prescriptions as of 12/02/2024 - Etonogestrel-Ethinyl Estradiol (ELURYNG) 0.12-0.015 mg/24 hr vaginal ring Use 1 Each vaginally as directed. Insert vaginally and leave in place for 3 consecutive weeks, then remove for 1 week. - fexofenadine (CHRISTINE) 180 mg tablet Take 1 tablet by mouth once daily. - fluticasone (FLONASE) 50 mcg/actuation nasal spray instill 1 spray into each nostril one to two times a day - ELURYNG 0.12-0.015 mg/24 hr vaginal ring INSERT RING VAGINALLY, WEAR FOR 3 WEEKS, AND REMOVE FOR [address] NEW RING AND REPEAT. - azelastine HCl (AZELASTINE NASAL) Use in the nose. - montelukast (SINGULAIR) 10 mg tablet Take 10 mg by mouth once daily. - fluticasone-vilantero l (BREO ELLIPTA) 200-25 mcg/dose inhaler - MOMETASONE FUROATE (NASONEX NASAL) Use in the nose. - ALBUTEROL SULFATE (PROAIR HFA INHALATION) Inhale as instructed. - Levalbuterol HCl (XOPENEX) 1.25 mg/0.5 mL nebulizer solution Use 1 Ampule via nebulizer every 4 hours as needed. - ipratropium (ATROVENT) 0.02 % nebulizer solution Use 0.5 mg via nebulizer four times daily. Problem List As Of Date 11/30/2024 Noted Resolved Hyperthyroidism [E05.90] 06/11/2024 Graves' disease [E05.00] 06/11/2024 Encounter Status:Closed by MAJO CERDA on 12/02/24 Normal [facility] T4 Free SerPl-mCncon 025 Free T4 [Mass/Vol] 1.1 ng/dL Normal 0.9-1.7 [facility] Comment on above: Order Comment: Speci men Type: BLOOD SPECIMEN [facility] Address: [address] [place] [address] Performed By: #### 3 024-7, 3016-3, 3026-2 #### [facility] CLIA [id number] [address] [place] [address] [place] T4 SerPl-mCncon 11-24-2024 T4 [Mass/Vol] 9.1 ug/dL Normal 5.5-10.2 [facility] Comment on above: Order Comment: Burke holloway Type: BLOOD SPECIMEN [facility]: [facility] Address: [address] [place] [address] Performed By: #### 3 024-7, 3016-3, 3026-2 #### [facility] CLIA [id number] [address] [place] [address] [place] TSH SerPl-aCncon 11-24-2024 TSH Qn 0.525 m[IU]/L Normal 0.270-4.200 [facility] Comment on above: Order Comment: Burke holloway Type: BLOOD SPECIMEN [facility]: [facility] Address: [address] [place] [address] Result Comment: If t he patient is , TSH reference range varies by gestational period: First Trimester (weeks 9-12): 0.180-2.990 mIU/L Second Trimester: 0.110-3.980 mIU/L Third Trimester: 0.480-4.710 mIU/L Aman Astudillo et al. A Practical Approach for the Verifications and Determination of Site- and Trimester-Specific Reference Intervals for Thyroid Function tests in . Thyroid, 2019:29:3:412-420. Nirmal E, et al. 2017 Guidelines of the [place] Thyroid Association for the Diagnosis and Management of Thyroid Disease during and the . Thyroid, 2017:27:3:315-389. Performed By: #### 3 024-7, 3016-3, 3026-2 #### [facility] CLIA [id number] [address] [place] [address] [place] OF [facility] CNOVon 08-11-2024 CNOV Office Visit (OBGYWM ) TIERAMOJGAN RAGSDALE ([id number]) 2000 F Date Time Provider Department 08/11/24 2:40 PM ROSALEE WEISS OBGYWM During your visit today, we recorded the following information about you: Blood pressure Weight Height Last Period 120/64 69.4 kg 1.651 m 07/24/24 Rosalee Weiss MD 08/11/2024 3:30 PM Signed Mojgan Hu is a 23 year old who presents for an annual gynecologic exam without complaints. Wonders about PCOs and OCPs Menses: cycles every 28 days and 3-4 days of flow. 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 No bloating, early satiety, indigestion, or increased flatulence. Bladder: No dysuria, gross hematuria, urinary frequency, urinary urgency, or incontinence. Breast: No breast lumps, nipple d/c, overlying skin changes, redness or skin retraction. Allergies and current medication updated:Yes SENSITIVE EXAM: The sensitive examination was discussed with the Patient or Patient's Authorized Associate Buyer. As applicable, any other physician, advance practice provider, medical student, or other health professional student that will be observing or involved in the sensitive examination for educational or training purposes was discussed with the Patient or Authorized Associate Buyer. The Patient or Authorized Associate Buyer has agreed to proceed with the sensitive examination. (Sensitive examination includes inspection and/or palpation of the breasts, pelvis, prostate and anorectal regions). EXAM: BP 120/64 Ht 5' 5 (1.65m) Wt 153 lb (69.4kg) LMP 07/24/2024 BMI 25.46 kg/(m2). GENERAL: pleasant, female in no apparent distress HEENT: Normocephalic, atraumatic, mucus membranes moist, and no lesions NECK: Supple, full range of motion, no adenopathy, and thyroid normal DERMATOLOGY: Normal, without lesions, non-icteric, and non-hirsute BREAST: soft, non-tender, symmetric, no dominant mass, normal nipple-areolar complex, no lymphadenopathy, and no nipple discharge CHEST: Normal inspiratory effort ABDOMEN: soft, non-tender, and no masses PELVIC: external genitalia normal, normal Bartholin's glands, urethra, [place]'s glands, no vulvar lesions, no cervical lesions, good vaginal support, physiologic discharge present, normal appearing perineal body and perianal region BIMANUAL: uterus normal size, shape and consistency, no adnexal masses, and non-tender RECTOVAGINAL: deferred. NEURO: alert and oriented x3,exam grossly non-focal EXTREMITIES: normal ASSESSMENT/PLAN: 1) Health maintenance: Pap done with HPV. Mammogram starting age 40. 2) Contraception: nuvaring. Contraceptive options reviewed and information provided. 3) STD screening: Declined STD check. 4) Follow up one year or sooner as needed consider inositol and no added sugar option for PCOS reviewed vs cyclic provera and spironolactone. She will continue nuvaring for now and can use continously if desires Rosalee Weiss MD Referring Provider: SELF [200] Allergies As of Date: 08/11/2024 Noted Allergy Reaction RIFAPENTINE 07/23/2019 14 - Other: See Comments Comments: Flu-Like symptoms (fever and body aches lastin ~24 hours) SEASONAL ALLERGIES 04/14/2017 3 - Cough Date Reviewed: 08/11/2024 Reviewed by: Rosalee Weiss MD - Fully Assessed Reason for Visit: Yearly Exam [187] Primary Visit Diagnosis:Encounter for gynecological examination (general) (routine) without abnormal findings [Z01.419] Other Visit Diagnoses:Screening for cervical cancer [Z12.4] Hirsutism [L68.0] Order(s):PAP TEST [[id number]] Order #: [id number] Etonogestrel-Ethinyl Estradiol (ELURYNG) 0.12-0.015 mg/24 hr vaginal ringUse 1 Each vaginally as directed. Insert vaginally and leave in place for 3 consecut (more content not included)... Normal [facility] PAP TESTon 08-11-2024 ADEQUACY Satisfactory for interpretation. Normal [facility] Comment on above: Order Comment: Speci men Type: FLUID SPECIMEN Ordering Facility: [facility] Address: [address] [place] [address] Performed By: #### L [id number] #### [facility] CLIA [id number] [address] [place] [address] [place] CASE REPORT Normal [facility] Comment on above: Order Comment: Speci men Type: FLUID SPECIMEN Ordering Facility: [facility] Address: [address] [place] [address] Result Comment: Gyne cologic Cytology Report Case: [id number] Authorizing Provider: Rosalee Weiss MD Collected: 08/11/2024 03:49 PM Ordering Location: OB/Gynecology Received: 08/11/2024 04:52 PM First Screen: Keri Hines, SHANIQUE, ASCP Specimen: Pap Test, ThinPrep, Cervix Performed By: #### L [id number] #### [facility] CLIA [id number] [address] [place] [address] [place] CLINICAL HISTORY, CYTOLOGY, COFFERDAM CONSTRUCTION SUPERVISOR Routine Exam Normal [facility] Comment on above: Order Comment: Speci men Type: FLUID SPECIMEN Ordering Facility: [facility] Address: [address] [place] [address] Performed By: #### L [id number] #### [facility] CLIA [id number] [address] [place], [place] [address] [place] FINAL PERFORMING LAB Normal [facility] Comment on above: Order Comment: Speci men Type: FLUID SPECIMEN Ordering Facility: [facility] Address: [address] [place] [address] Result Comment: Tech nical component, hospital ward clerk screening performed at [facility], [address] [place] [id number] CLIA# [id number] Diagnostic interpretation performed at [facility], [address] [place], [place] [id number] CLIA# [id number] Film Color Tester: Dell Hernandez M.D. Performed By: #### L [id number] #### [facility] CLIA [id number] [address] [place] [address] [place] HPV REFLEX HPV if Atypical Normal [facility] Comment on above: Order Comment: Speci men Type: FLUID SPECIMEN Ordering Facility: [facility] Address: [address] [place] [address] Performed By: #### L [id number] #### [facility] CLIA [id number] [address] [place] [address] [place] INTERPRETATION, CYTOLOGY, COFFERDAM CONSTRUCTION SUPERVISOR Normal [facility] Comment on above: Order Comment: Speci men Type: FLUID SPECIMEN Ordering Facility: [facility] Address: [address] [place] [address] Result Comment: Nega tive for intraepithelial lesion or malignancy. Performed By: #### L [id number] #### [facility] CLIA [id number] [address] [place] [address] [place] LMP 07/24/2024 Normal [facility] Comment on above: Order Comment: Speci men Type: FLUID SPECIMEN Ordering Facility: [facility] Address: [address] [place] [address] Performed By: #### L [id number] #### [facility] CLIA [id number] [address] [place] [address] [place] PAP DISCLAIMER COMMENT The Pap Smear is a screening test for cervical cancer. False negative results occur with all screening tests, emphasizing the need for rescreening at recommended intervals, and clinical correlation. Normal [facility] Comment on above: Order Comment: Speci men Type: FLUID SPECIMEN Ordering Facility: [facility] Address: [address] [place] [address] Performed By: #### L [id number] #### [facility] CLIA [id number] [address] [place] [address] [place] PAP SCREEN MAKING TECHNICIAN COMMENT This specimen has been analyzed by the ThinPrep Imaging System, an automated imaging and review system, which assists the laboratory in evaluating cells on ThinPrep Pap tests. Following automated imaging, selected herzog from every slide are reviewed by a hospital ward clerk. Normal [facility] Comment on above: Order Comment: Speci men Type: FLUID SPECIMEN Ordering Facility: [facility] Address: [address] [place] [address] Performed By: #### L [id number] #### [facility] CLIA [id number] [address] [place] [address] [place] Testost SerPl-mCncon 08-11- 024 Testosterone [Mass/Vol] 19 ng/dL Normal <40 [facility] Comment on above: Order Comment: Speci men Type: BLOOD SPECIMEN Ordering Facility: [facility] Address: [address] [place] [address] Performed By: #### 2 [id number] #### [facility] CLIA [id number] [address] [place] [address] [place] Emergency Department Summary on 07-20-2024 Emergency Department Summary [facility] Medical Records Department [address] [place] [address] Emergency Department Summary 07/20/24 MR#: [id number] Acct: [id number] Name: MOJGAN ALARCON Rep #: [id number] : 2000 23 From: John Kirby MD PCP: Dr. 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 She thinks she actually hit her thumb before the needle touched the patient's skin. She has no history of hepatitis or other blood-borne infections, and to her knowledge the source patient does not either. Tetanus Immunization: 5-10 years (Around 10 years she thinks) [facility] Medical History PCOS (polycystic ovarian syndrome) PND (post-nasal drip) Seasonal allergies Uninodular thyroid nodule Asthma Home Medications ???Medication ???Instructions ???Recorded ???Last Taken ???Type mometasone 50 mcg/actuation nasal 2 spray intranasal DAILY #17 grams 11/22/22 Unknown Rx spray azelastine 205.5 mcg (0.15 %) 1 spray intranasal BID #3 ea 03/25/23 Unknown Rx nasal spray albuterol sulfate 90 mcg/actuation 1 puff inhalation Q4H #8.5 grams 05/31/23 Unknown Rx aerosol inhaler etonogestrel 0.12 mg-ethinyl vag ring vaginal 10/30/23 Unknown History estradiol 0.015 mg/24 hr vaginal ring (EluRyng) fexofenadine 180 mg tablet 180 mg PO DAILY #60 tabs 10/30/23 Unknown Rx (Christine Allergy) fluticasone furoate 200 1 inh inhalation Q24H #90 ea 10/30/23 Unknown Rx mcg-vilanterol 25 mcg/dose inhalation powder (Breo Ellipta) montelukast 10 mg tablet 10 mg PO QPM #30 tabs 10/30/23 Unknown Rx levalbuterol HCl 1.25 mg/3 mL 1.25 mg (3 mL) inhalation Q4H #90 03/19/24 Unknown Rx solution for nebulization mL Allergy/AdvReac Type Severity Reaction Status Date / Time Environmental Allergies: Allergy Intermediate SINUS Verified 07/20/24 09:21 Uncoded CONGESTION rifapentine Allergy Intermediate shaking Verified 07/20/24 09:21 and fatigue Family History Sister Asthma Brother Asthma Surgical History History of wisdom tooth extraction Social History Smoking Status: Never smoker alcohol intake: never substance use type: does not use ROS ROS ED Constitutional Constitutional ED: Denies fever(s) Musculoskeletal Musculoskeletal: Denies extremity pain Integumentary Reports other Details: needlestick wound L thumb Neurologic Neurologic: Denies paresthesias or weakness EXAM Physical Exam Const Vital Signs: 07/20/24 09:21 Temperature 98 F Temperature Source Temporal Pulse Rate 87 Respiratory Rate 14 Blood Pressure 124/86 H Blood Pressure Mean 98 Pulse Ox 98 Oxygen Delivery Method Room Air Positive well nourished and well developed General Appearance ED: well developed and NAD Extremity normal to inspection and full ROM Extremity Narrative: Small pinpoint needlestick wound at the dorsal IPJ of the left thumb. No active bleeding. No tenderness. No signs of infection. Full range of motion of the joint and thumb without any difficulty. Neuro oriented x3 and CN's II-XII intact bilaterally Neuro Narrative: Normal motor and sensory left thumb/hand. Motor Exam: strength 5/5 throughout MDM MDM MDM Narrative Medical decision making narrative: Patient reassured we will put her through the protocol obtain labs and she can follow-up with [facility]. This is a low risk injury, even if it did touch the patient first, and postexpo sure prophylaxis is not recommended at this time. Okay to return to work without restrictions. I had nurses clean the small wound and put a Band-Aid on it. Discharge Plan Triage Chief Complaint: Occup Expose ED Provider: John Kirby Dx/Rx/DC Orders Clinical Impression: Hypodermic needlestick injury of finger of left hand Instructions: ED NEEDLE STICK Health Care Worker Prescriptions: No Action etonogestrel-ethinyl estradiol [EluRyng] 0.12-0.015 mg/24 hr ring vaginal Patient Comments: INSERT RING VAGINALLY, WEAR FOR 3 WEEKS, AND REMOVE FOR [address] NEW RING AND REPEAT. Breo Ellipta 200-25 mcg/dose blister with device 1 inh INHALATION Q24H Qty: 90 12RF montelukast 10 mg tablet 10 mg PO QPM Qty: 30 11RF fexofenadine [Christine Allergy] 180 mg tablet 180 mg PO DAILY Qty: 60 11RF mometasone 50 mcg/actuation spray,non-aerosol 2 (more content not included)... Normal [facility] HIV - WCHon 07-20-2024 HIV Non-Reactive Normal Nonreactive [facility] Comment on above: Order Comment: Has p t arrived? Y Reason for Exam: ED Expose Person Protocol Performed By: #### L 3890.6300, L3890.6005, L3890.6200, L3890.6100 #### [facility] [address] [place], [address] Hepatitis B Surface Antibody on 07-20-2024 HEP B Surf Ab Reactive Normal [facility] Comment on above: Order Comment: Has p t arrived? Y Reason for Exam: ED Expose Person Protocol Result Comment: Non Reactive: Inconsistent with immunity less than <10 mIU/mL Reactive: Consistent with immunity greater than or equal to 10 mIU/mL Performed By: #### L 3890.6300, L3890.6005, L3890.6200, L3890.6100 #### [facility] [address] [place], [place], [address] Hepatitis B Surface Antigeno n 07-20-2024 HEP B Surf Ag Non-Reactive Normal Nonreactive [facility] Comment on above: Order Comment: Has p t arrived? Y Reason for Exam: ED Expose Person Protocol Performed By: #### L 3890.6300, L3890.6005, L3890.6200, L3890.6100 #### [facility] [address] [place], [place], [id number] Hepatitis C Antibodyon 07-20 Hepatitis C AB Non-Reactive Normal Nonreactive [facility] Comment on above: Order Comment: Has p t arrived? Y Reason for Exam: ED Expose Person Protocol Result Comment: Non Reactive: < 0.8 Equivocal: >/= 0.8 to < 1.0 Reactive: >/= 1.0 The CDC requires that a reactive/equivocal HCV antibody result be sent out for confirmation. HCV Quant by PCR testing. Performed By: #### L 3890.6300, L3890.6005, L3890.6200, L3890.6100 #### [facility] [address] [place], [address] CNOVon 06-11-2024 CNOV Office Visit (ENAGST ) MOJGAN ALARCON ([id number]) 2000 F Date Time Provider Department 06/11/24 3:40 PM GREG SHIPMAN During your visit today, we recorded the following information about you: Pulse Blood pressure Weight Height 85/minute 125/82 71.4 kg 1.702 m Greg Shipman MD 06/11/2024 4:31 PM Signed PCP: Montse Almeida MD. Subjective The history is provided by the patient. Mojgan Hu Tierakareem is a 23 year old White female with PMHx of asthma who presented to the endocrine clinic for hyperthyroidism evaluation and management History of present illness Initial History: (02/17/24) The patient has been followed by endocrine surgery for stable thyroid nodularity with dominant 2.1 cm in the right side. Nodule was first noted around 2017 by the patient which was evaluated by biopsy and came back benign. The patient has been feeling off lately. She has noticed fine tremor mostly at work for the past couple months. 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 Interval History: Patient reports feeling okay overall. She has been noticing mild symptoms of palpitations and tremor but has not been interfering with her life her job Review of Systems Cardiovascular: Positive for palpitations. Neurological: Positive for tremors. HISTORY REVIEWED (electronic chart updated): PAST MEDICAL HISTORY Diagnosis Date Asthma PCOS (polycystic ovarian syndrome) PAST SURGICAL HISTORY Procedure Laterality Date PAST SURGICAL HISTORY OF wisdom teeth removal No family history on file. Social History Tobacco Use Smoking status: Never Smokeless tobacco: Never Substance Use Topics Alcohol use: No Drug use: No Current Outpatient Medications Medication Sig Dispense Refill fexofenadine (CHRISTINE) 180 mg tablet Take 1 tablet by mouth once daily. fluticasone (FLONASE) 50 mcg/actuation nasal spray instill 1 spray into each nostril one to two times a day ELURYNG 0.12-0.015 mg/24 hr vaginal ring INSERT RING VAGINALLY, WEAR FOR 3 WEEKS, AND REMOVE FOR [address] NEW RING AND REPEAT. azelastine HCl (AZELASTINE NASAL) Use in the nose. montelukast (SINGULAIR) 10 mg tablet Take 10 mg by mouth once daily. 10 fluticasone-vilantero l (BREO ELLIPTA) 200-25 mcg/dose inhaler MOMETASONE FUROATE (NASONEX NASAL) Use in the nose. ALBUTEROL SULFATE (PROAIR HFA INHALATION) Inhale as instructed. Levalbuterol HCl (XOPENEX) 1.25 mg/0.5 mL nebulizer solution Use 1 Ampule via nebulizer every 4 hours as needed. ipratropium (ATROVENT) 0.02 % nebulizer solution Use 0.5 mg via nebulizer four times daily. No current facility-administered medications for this visit. Objective BP 125/82 Pulse 85 Ht 5' 7 (1.70m) Wt 157 lb 6.4 oz (71.4kg) BMI 24.65 kg/(m2). Physical examination Physical Exam Vitals and nursing note reviewed. Constitutional: General: She is not in acute distress. Neck: Thyroid: Thyromegaly present. Cardiovascular: Rate and Rhythm: Normal rate and regular rhythm. Heart sounds: Normal heart sounds. Pulmonary: Effort: No respiratory distress. Breath sounds: Normal breath sounds. Neurological: General: No focal deficit present. Mental Status: She is alert. Psychiatric: Mood and Affect: Affect normal. Labs and imaging data: Reviewed Latest Ref Rng 11/19/2023 02/17/2024 TSI Qualitative Negative Positive ! TSI <0.55 IU/L 1.56 (H) TSH 0.270 - 4.200 mIU/L <0.005 (L) 0.006 (L) THYROID PEROXIDASE ANTIBODY <5.6 IU/mL 7.9 (H) Free T4 0.9 - 1.7 ng/dL 1.4 T3 79 - 165 ng/dL 169 (H) Thyroid ultrasound on 03/03/2019 Multinodular thyroid gland as described above. Findings are similar to comparison study 02/11/2018. The right thyroid lobe is measured 4.6 cm longitudinal by 2 cm AP by 1.5 cm transverse. There is redemonstration of a mixed solid cystic hypoechoic nodule posterior lower lobe measured 2.1 x 1.7 x 1.5 cm in size. This compares to a previous measurement of 2.3 x 1.6 x 1.7 cm. There are two additional solid hypoechoic nodules within the lobe measuring 0.3 cm and 0.4 cm in size. The left thyroid lobe is measured 3.7 x 1.1 x 1.3 cm in size. There is a solid hypoechoic nodule redemonstrated within the posterior upper lobe measured 0.5 x 0.4 x 0.4 cm in size. This compares to previous measurement of 0.6 x 0.3 x 0.5 cm. The isthmus is measured at 0.2 cm in thickness. Thyroid uptake and scan on 03/27/2024 IMPRESSION: 1. MILDLY INCREASED I-123 UPTAKE VALUES. 2. SCAN: MILDLY HETEROGENEOUS DIFFUSE UPTAKE IN THE THYROID RESULT: The I-123 uptake is 18.8% at 5 hours and 30.7% at 24 hours ( normal 10-30% at 24 hours). There is mildly heterogeneous with diffuse uptake seen in both lobes of the thyroid. Pre (more content not included)... Normal [facility] No Panel Informationon 06-11 Interpretation and review of laboratory results Normal [facility] T3on 06-11-2024 T3 [Mass/Vol] 111 ng/dL 79 - 165 ng/dL [facility] T3 SerPl-mCncon 06-11-2024 T3 [Mass/Vol] 111 ng/dL Normal 79-165 [facility] Comment on above: Order Comment: Speci men Type: BLOOD SPECIMENOrdering Facility: [facility] Address: [address] [place], [place] [address] Performed By: #### 3 053-6, 3016-3, 3024-7 ####[facility]ORY[facility] [id number] [place] [address] [place] [facility] T4 FREE/FREE THYROXINEon Free T4 [Mass/Vol] 1.3 ng/dL 0.9 - 1.7 ng/dL [facility] T4 Free SerPl-mCncon 024 Free T4 [Mass/Vol] 1.3 ng/dL Normal 0.9-1.7 [facility] Comment on above: Order Comment: Speci men Type: BLOOD SPECIMENOrdering Facility: [facility] Address: [address] [place] [address] Performed By: #### 3 053-6, 3016-3, 3024-7 ####[facility]ORYCLIA [id number] [place] [address] [place] THYROID STIMULATING HORMONEo n 06-11-2024 TSH Qn 0.032 m[IU]/L Low [facility] Comment on above: If the patient is pr egnant, TSH reference range varies by gestational period: First Trimester (weeks 9-12): 0.180-2.990 mIU/L Second Trimester: 0.110-3.980 mIU/L Third Trimester: 0.480-4.710 mIU/L Aman Astudillo et al. A Practical Approach for the Verifications and Determination of Site- and Trimester-Specific Reference Intervals for Thyroid Function tests in . Thyroid, 2019:29:3:412-420. Nirmal E, et al. 2017 Guidelines of the [place] Thy[employer] Association for the Diagnosis and Management of Thyroid Disease during and the . Thyroid, 2017:27:3:315-389. TSH Qnon 06-11-2024 Interpretation and review of laboratory results Abnormal [facility] TSH SerPl-aCncon 06-11-2024 TSH Qn 0.032 m[IU]/L Low 0.270-4.200 [facility] Comment on above: Order Comment: Speci men Type: BLOOD SPECIMENOrdering Facility: [facility] Address: [address] [place] [address] Result Comment: If t he patient is , TSH reference range varies by gestational period: First Trimester (weeks 9-12): 0.180-2.990 mIU/L Second Trimester: 0.110-3.980 mIU/L Third Trimester: 0.480-4.710 mIU/L Aman Astudillo et al. A Practical Approach for the Verifications and Determination of Site- and Trimester-Specific Reference Intervals for Thyroid Function tests in . Thyroid, 2019:29:3:412-420. Nirmal Banks, et al. 2017 Guidelines of the [place] Thy[employer] Association for the Diagnosis and Management of Thyroid Disease during and the . Thyroid, 2017:27:3:315-389. Performed By: #### 3 053-6, 3016-3, 3024-7 ####[facility]ORATORYCLIA [id number] [place] [id number] [facility] THY UPTAKE AND SCANon NM THY UPTAKE AND SCAN * * *Final Report* * * DATE OF EXAM: Mar 27 2024 8:13AM [facility] 0040 - NM THY UPTAKE AND SCAN / PROCEDURE REASON: Hyperthyroidism * * * * Physician Interpretation * * * * I-123 UPTAKE AND SCAN CLINICAL HISTORY: Hyperthyroidism TECHNIQUE: 509 microcuries of I-123 sodium orally uptake and neck images in anterior-posterior and oblique views obtained at about 5 hours followed uptake at about 24 hours RESULT: The I-123 uptake is 18.8% at 5 hours and 30.7% at 24 hours ( normal 10-30% at 24 hours). There is mildly heterogeneous with diffuse uptake seen in both lobes of the thyroid. IMPRESSION: 1. MILDLY INCREASED I-123 UPTAKE VALUES. 2. SCAN: MILDLY HETEROGENEOUS DIFFUSE UPTAKE IN THE THYROID [employer]: CELESTINA Transcribe Date/Time: Mar 27 2024 9:44A Dictated by : STEW ELLER MD This examination was interpreted and the report reviewed and electronically signed by: STEW ELLER MD on Mar 27 2024 9:57AM EST [id number] N Normal [facility] NM Thyroid gland Views and V iews uptakeon 03-27-2024 IMPRESSION: 1. MILDLY INCREASED I-123 UPTAKE VALUES. 2. SCAN: MILDLY HETEROGENEOUS DIFFUSE UPTAKE IN THE THYROID [employer]: CELE[employer]INA Transcribe Date/Time: Mar 27 2024 9:44A Dictated by : STEW ELLER MD This examination was interpreted and the report reviewed and electronically signed by: STEW ELLER MD on Mar 27 2024 9:57AM EST [facility] * * *Final Report* * * DATE OF EXAM: Mar 27 2024 8:13AM MDN [facility]0 - NM THY UPTAKE AND SCAN / PROCEDURE REASON: Hyperthyroidism * * * * Physician Interpretation * * * * I-123 UPTAKE AND SCAN CLINICAL HISTORY: Hyperthyroidism TECHNIQUE: 509 microcuries of I-123 sodium orally uptake and neck images in anterior-posterior and oblique views obtained at about 5 hours followed uptake at about 24 hours RESULT: The I-123 uptake is 18.8% at 5 hours and 30.7% at 24 hours ( normal 10-30% at 24 hours). There is mildly heterogeneous with diffuse uptake seen in both lobes of the thyroid. [facility] Provider, [facility] - 03/27/2024 * * *Final Report* * * DATE OF EXAM: Mar 27 2024 8:13AM [facility] 0040 - NM THY UPTAKE AND SCAN / PROCEDURE REASON: Hyperthyroidism * * * * Physician Interpretation * * * * I-123 UPTAKE AND SCAN CLINICAL HISTORY: Hyperthyroidism TECHNIQUE: 509 microcuries of I-123 sodium orally uptake and neck images in anterior-posterior and oblique views obtained at about 5 hours followed uptake at about 24 hours RESULT: The I-123 uptake is 18.8% at 5 hours and 30.7% at 24 hours ( normal 10-30% at 24 hours). There is mildly heterogeneous with diffuse uptake seen in both lobes of the thyroid. IMPRESSION IMPRESSION: 1. MILDLY INCREASED I-123 UPTAKE VALUES. 2. SCAN: MILDLY HETEROGENEOUS DIFFUSE UPTAKE IN THE THYROID [employer]: CELE[employer]INA Transcribe Date/Time: Mar 27 2024 9:44A Dictated by : STEW ELLER MD This examination was interpreted and the report reviewed and electronically signed by: STEW ELLER MD on Mar 27 2024 9:57AM EST [facility] NM Thyroid gland Views and V iews uptakeOrdered By: Ccf Provider on 03-27-[address] [facility] NM Thyroid gland Views and V iews uptakeon 03-26-2024 Radiology Study observation (narrative) [facility] CNPNon 02-18-2024 CNPN Telephone (ENAGST) MOJGAN ALARCON ([id number]) 2000 F Date Time Provider Department 02/18/24 GREG SHIPMAN During your visit today, we recorded the following information about you: Greg Shipman MD 02/18/2024 2:23 PM Signed Please schedule thyroid uptake and scan Majo Cerda PSS 02/19/2024 9:20 AM Signed LVM for patient to call with availability to schedule JAMES Lu February 19, 2024 9:19 AM Majo Cerda PSS 02/20/2024 1:49 PM Addendum Referral Coordination Patient scheduled for:thyroid uptake and scan Location:[facility] Date: 03-26-24 Time:8:00,2 03-27-24 @8 final scan Prep for test:none Patient informed: Spoke to patient and she voiced understanding March 19- AND 07-28 LVM asking for best days and times for scan JAMES Lu February 19, 2024 4:35 PM Allergies As of Date: 02/18/2024 Noted Allergy Reaction RIFAPENTINE 07/23/2019 14 - Other: See Comments Comments: Flu-Like symptoms (fever and body aches lastin ~24 hours) SEASONAL ALLERGIES 04/14/2017 3 - Cough Date Reviewed: 02/17/2024 Reviewed by: Kirk, Rocío, MA - Fully Assessed Reason for Visit: Procedure [88] Cmt: Thyroid uptake and scan Primary Visit Diagnosis:Hyperthyroi dism [E05.90] Order(s):NM THY UPTAKE AND SCAN [[id number]] Order #: [id number] FUTURE Prescriptions as of 02/20/2024 - fexofenadine (CHRISTINE) 180 mg tablet Take 1 tablet by mouth once daily. - fluticasone (FLONASE) 50 mcg/actuation nasal spray instill 1 spray into each nostril one to two times a day - ELURYNG 0.12-0.015 mg/24 hr vaginal ring INSERT RING VAGINALLY, WEAR FOR 3 WEEKS, AND REMOVE FOR [address] NEW RING AND REPEAT. - azelastine HCl (AZELASTINE NASAL) Use in the nose. - montelukast (SINGULAIR) 10 mg tablet Take 10 mg by mouth once daily. - fluticasone-vilantero l (BREO ELLIPTA) 200-25 mcg/dose inhaler - MOMETASONE FUROATE (NASONEX NASAL) Use in the nose. - ALBUTEROL SULFATE (PROAIR HFA INHALATION) Inhale as instructed. - Levalbuterol HCl (XOPENEX) 1.25 mg/0.5 mL nebulizer solution Use 1 Ampule via nebulizer every 4 hours as needed. - ipratropium (ATROVENT) 0.02 % nebulizer solution Use 0.5 mg via nebulizer four times daily. Problem List As Of Date: 02/18/2024 (None) Encounter Status:Closed by MAJO CERDA on 02/19/24 [facility] CNOVprosper 02-17-2024 CNOV Office Visit (ENAGST ) MOJGAN ALARCON ([id number]) 2000 F Date Time Provider Department 02/17/24 1:00 PM GREG SHIPMAN During your visit today, we recorded the following information about you: Height 1.626 m Greg Shipman MD 02/17/2024 3:53 PM Signed PCP: Montse Almeida MD. Subjective The history is provided by the patient. Mojgan Alarcon is a 23 year old White female with PMHx of asthma who presented to the endocrine clinic for hyperthyroidism evaluation and management History of present illness Initial History: (02/17/24) The patient has been followed by endocrine surgery for stable thyroid nodularity with dominant 2.1 cm in the right side. Nodule was first noted around 2018 by the patient which was evaluated by biopsy and came back benign. The patient has been feeling off lately. She has noticed fine tremor mostly at work for the past couple months. 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 Review of Systems Constitutional: Positive for malaise/fatigue. Negative for diaphoresis and weight loss. Cardiovascular: Positive for palpitations. Gastrointestinal: Negative for constipation and diarrhea. Neurological: Positive for tremors. Psychiatric/Behaviora l: The patient is nervous/anxious. HISTORY REVIEWED (electronic chart updated): PAST MEDICAL HISTORY Diagnosis Date Asthma PCOS (polycystic ovarian syndrome) PAST SURGICAL HISTORY Procedure Laterality Date PAST SURGICAL HISTORY OF wisdom teeth removal History reviewed. No pertinent family history. Social History Tobacco Use Smoking status: Never Smokeless tobacco: Never Substance Use Topics Alcohol use: No Drug use: No Current Outpatient Medications Medication Sig Dispense Refill fexofenadine (CHRISTINE) 180 mg tablet Take 1 tablet by mouth once daily. fluticasone (FLONASE) 50 mcg/actuation nasal spray instill 1 spray into each nostril one to two times a day ELURYNG 0.12-0.015 mg/24 hr vaginal ring INSERT RING VAGINALLY, WEAR FOR 3 WEEKS, AND REMOVE FOR [address] NEW RING AND REPEAT. azelastine HCl (AZELASTINE NASAL) Use in the nose. montelukast (SINGULAIR) 10 mg tablet Take 10 mg by mouth once daily. 10 fluticasone-vilantero l (BREO ELLIPTA) 200-25 mcg/dose inhaler MOMETASONE FUROATE (NASONEX NASAL) Use in the nose. ALBUTEROL SULFATE (PROAIR HFA INHALATION) Inhale as instructed. Levalbuterol HCl (XOPENEX) 1.25 mg/0.5 mL nebulizer solution Use 1 Ampule via nebulizer every 4 hours as needed. ipratropium (ATROVENT) 0.02 % nebulizer solution Use 0.5 mg via nebulizer four times daily. No current facility-administered medications for this visit. Objective Ht 5' 4 (1.63m) Physical examination Physical Exam Vitals and nursing note reviewed. Constitutional: General: She is not in acute distress. Neck: Thyroid: Thyromegaly present. Cardiovascular: Rate and Rhythm: Normal rate and regular rhythm. Heart sounds: Normal heart sounds. Pulmonary: Effort: No respiratory distress. Breath sounds: Normal breath sounds. Neurological: General: No focal deficit present. Mental Status: She is alert. Psychiatric: Mood and Affect: Affect normal. Labs and imaging data: Reviewed Latest Ref Rng 11/19/2023 TSH 0.270 - 4.200 mIU/L <0.005 (L) THYROID PEROXIDASE ANTIBODY <5.6 IU/mL 7.9 (H) Legend: (L) Low (H) High Thyroid ultrasound on 03/03/2019 Multinodular thyroid gland as described above. Findings are similar to comparison study 02/11/2018. The right thyroid lobe is measured 4.6 cm longitudinal by 2 cm AP by 1.5 cm transverse. There is redemonstration of a mixed solid cystic hypoechoic nodule posterior lower lobe measured 2.1 x 1.7 x 1.5 cm in size. This compares to a previous measurement of 2.3 x 1.6 x 1.7 cm. There are two additional solid hypoechoic nodules within the lobe measuring 0.3 cm and 0.4 cm in size. The left thyroid lobe is measured 3.7 x 1.1 x 1.3 cm in size. There is a solid hypoechoic nodule redemonstrated within the posterior upper lobe measured 0.5 x 0.4 x 0.4 cm in size. This compares to previous measurement of 0.6 x 0.3 x 0.5 cm. The isthmus is measured at 0.2 cm in thickness. Previous medical records: Reviewed Assessment AND Plan Assessment: Mojgan Hu was seen today for new patient evaluation. Diagnoses and all orders for this visit: Hyperthyroidism - TSH BLD; Future - T4 FREE/FREE THYROX; Future - T3 BLD; Future - NM THY UPTAKE AND SCAN; Future - THYROID STIMULATING IMMUNOGLOBULIN BLOOD; Future Nodular goiter Plan: Hyperthyroidism possibly due to toxic nodular goiter, other differential includes Graves' disease Obtain the full thyroid panel including TSI followed by ra (more content not included)... Normal [facility] T3 BLDon 02-17-2024 T3 [Mass/Vol] 169 ng/dL High 79 - 165 ng/dL [facility] T3 SerPl-mCncon 02-17-2024 T3 [Mass/Vol] 169 ng/dL High 79-165 [facility] Comment on above: Order Comment: Burke holloway Type: BLOOD SPECIMENOrdering Facility: [facility] Address: [address] [place] [address] Performed By: #### 3 053-6, 3016-3, 3027 ####[facility] LABORATORYCLIA [id number] [place] [address] [place] T4 FREE/FREE THYROXon 2023 Free T4 [Mass/Vol] 1.4 ng/dL 0.9 - 1.7 ng/dL [facility] Free T4 [Mass/Vol] 1.4 ng/dL Normal 0.9-1.7 [facility] Comment on above: Order Comment: Burke holloway Type: BLOOD SPECIMENOrdering Facility: [facility] Address: [address] [place] [address] Performed By: #### 3 053-6, 3016-3, 3027 ####[facility] LABORATORYCLIA [id number] [place] [address] [place] THYROID STIMULATING IMMUNOGL OBULIN BLOODon 02-17-2024 Thyroid stimulating immunoglobulins actual/normal (S) [Relative mass conc] 1.56 IU/L High <0.55 [facility] Comment on above: Order Comment: Burke holloway Type: BLOOD SPECIMENOrdering Facility: [facility] Address: [address] [place] [address] Result Comment: Thyr oid Stimulating Immunoglobulin test is used as an aid in diagnosis of autoimmune hyperthyroidism especially in patients with Grave's orbitopathy and dermopathy. Low positive TSH receptor stimulating antibody levels may occasionally be found in patients with autoimmune hypothyroidism. Clinical correlation is required. Performed By: #### T SIGIM ####[facility] LABCLIA [id number] [place] [address] [place] TSI QUALITATIVE Positive Abnormal Negative [facility] Comment on above: Order Comment: Burke holloway Type: BLOOD SPECIMENOrdering Facility: [facility] Address: [address] [place] [address] Performed By: #### T SIGIM ####[facility] LABCLIA [id number] [place] [address] [place] TSH BLDon 02-17-2024 TSH Qn 0.006 m[IU]/L Low 0.270 - 4.200 mIU/L [facility] TSH SerPl-aCncon 02-17-2024 TSH Qn 0.006 m[IU]/L Low 0.270-4.200 [facility] Comment on above: Order Comment: Burke holloway Type: BLOOD SPECIMENOrdering Facility: [facility] Address: [address] [place] [address] Result Comment: If t he patient is , TSH reference range varies by gestational period: First Trimester (weeks 9-12): 0.180-2.990 mIU/L Second Trimester: 0.110-3.980 mIU/L Third Trimester: 0.480-4.710 mIU/L Aman Astudillo et al. A Practical Approach for the Verifications and Determination of Site- and Trimester-Specific Reference Intervals for Thyroid Function tests in . Thyroid, 2019:29:3:412-420. Nirmal Banks, et al. 2017 Guidelines of the [place] [employer] for the Diagnosis and Management of Thyroid Disease during and the . Thyroid, 2017:27:3:315-389. Performed By: #### 3 053-6, 3016-3, 3024-7 ####[facility] LABORATORYCLIA [id number] [place] [address] [place] TSH with reflex T4FRon 07-11 TSH with reflex T4FR 1.182 uIU/mL Normal 0.350-5.500 [facility] Comment on above: Order Comment: With differential. Is this order Clinic Collect?->Yes Is this specimen being sent to an external lab?->No Performed By: #### T SHR #### [place] [address] Comp Metabolic Panelon 07-08 Albumin [Mass/Vol] 4.3 g/dL Normal 3.5-5.0 [facility] Comment on above: Order Comment: With differential. Is this order Clinic Collect?->Yes Is this specimen being sent to an external lab?->No Performed By: #### C MP #### [place] [address] ALP [Catalytic activity/Vol] 47 U/L Normal 35-104 [facility] Comment on above: Order Comment: With differential. Is this order Clinic Collect?->Yes Is this specimen being sent to an external lab?->No Performed By: #### C MP #### [place] [address] ALT [Catalytic activity/Vol] 18 U/L Normal 0-31 [facility] Comment on above: Order Comment: With differential. Is this order Clinic Collect?->Yes Is this specimen being sent to an external lab?->No Performed By: #### C MP #### [address] [address] AST [Catalytic activity/Vol] 19 U/L Normal 0-31 [facility] Comment on above: Order Comment: With differential. Is this order Clinic Collect?->Yes Is this specimen being sent to an external lab?->No Performed By: #### C MP #### [place] [address] Bili,Total 0.7 mg/dl Normal 0.0-1.0 [facility] Comment on above: Order Comment: With differential. Is this order Clinic Collect?->Yes Is this specimen being sent to an external lab?->No Result Comment: Premature : 1 Day 1.0-6.0 mg/dl 2 Day 6.0-8.0 mg/dl 3-5 Day 10.0-15.0 mg/dl Performed By: #### C MP #### [place] [address] Calcium [Mass/Vol] 8.8 mg/dL Normal 7.6-11.0 [facility] Comment on above: Order Comment: With differential. Is this order Clinic Collect?->Yes Is this specimen being sent to an external lab?->No Performed By: #### C MP #### [place] [address] Chloride [Moles/Vol] 106 mmol/L Normal 96-108 [facility] Comment on above: Order Comment: With differential. Is this order Clinic Collect?->Yes Is this specimen being sent to an external lab?->No Performed By: #### C MP #### [place] [address] CO2 [Moles/Vol] 26.3 mmol/L Normal 22.0-29.0 [facility] Comment on above: Order Comment: With differential. Is this order Clinic Collect?->Yes Is this specimen being sent to an external lab?->No Performed By: #### C MP #### [place] [address] Creatinine [Mass/Vol] 0.63 mg/dL Normal 0.50-1.00 [facility] Comment on above: Order Comment: With differential. Is this order Clinic Collect?->Yes Is this specimen being sent to an external lab?->No Result Comment: Premature 0.3-1.0 mg/dL Performed By: #### C MP #### [address] [address] Glucose [Mass/Vol] 75 mg/dL Normal 70-99 [facility] Comment on above: Order Comment: With differential. Is this order Clinic Collect?->Yes Is this specimen being sent to an external lab?->No Result Comment: Criteria for Diagnosis of Diabetes(Effective 04/23/11): Fasting specimen (no caloric intake for at least 8 hours). <100 mg/dl Normal 100-125 mg/dl Increased Risk for Diabetes >125 mg/dl Diagnostic for Diabetes Random Glucose (any time of day without regard to last meal). >=200 mg/dl plus Classic Symptoms of Diabetes Performed By: #### C MP #### [place] [address] Potassium [Moles/Vol] 4.2 mmol/L Normal 3.3-5.1 [facility] Comment on above: Order Comment: With differential. Is this order Clinic Collect?->Yes Is this specimen being sent to an external lab?->No Performed By: #### C MP #### [address] [address] Protein [Mass/Vol] 6.8 g/dL Normal 5.9-8.4 [facility] Comment on above: Order Comment: With differential. Is this order Clinic Collect?->Yes Is this specimen being sent to an external lab?->No Performed By: #### C MP #### [address] [address] Sodium [Moles/Vol] 138 mmol/L Normal 133-145 [facility] Comment on above: Order Comment: With differential. Is this order Clinic Collect?->Yes Is this specimen being sent to an external lab?->No Performed By: #### C MP #### [address] [address] Urea nitrogen [Mass/Vol] 9 mg/dL Normal 4-19 [facility] Comment on above: Order Comment: With differential. Is this order Clinic Collect?->Yes Is this specimen being sent to an external lab?->No Performed By: #### C MP #### [address] [address] Complete Blood Counton 07-08 Differential Complete Automated Normal [facility] Comment on above: Order Comment: With differential. Is this order Clinic Collect?->Yes Is this specimen being sent to an external lab?->No Performed By: #### C BC #### [address] [address] Basophils/100 WBC (Bld) 0.40 % Normal 0.00-1.00 [facility] Comment on above: Order Comment: With differential. Is this order Clinic Collect?->Yes Is this specimen being sent to an external lab?->No Performed By: #### C BC #### [address] [address] Eosinophils/100 WBC (Bld) 1.50 % Normal 0.00-3.00 [facility] Comment on above: Order Comment: With differential. Is this order Clinic Collect?->Yes Is this specimen being sent to an external lab?->No Performed By: #### C BC #### [address] [address] Erythrocyte distribution width (RBC) [Ratio] 12.6 % Normal 0.0-14.4 [facility] Comment on above: Order Comment: With differential. Is this order Clinic Collect?->Yes Is this specimen being sent to an external lab?->No Performed By: #### C BC #### [address] [address] Hematocrit (Bld) [Volume fraction] 39.2 % Normal 36.0-44.0 [facility] Comment on above: Order Comment: With differential. Is this order Clinic Collect?->Yes Is this specimen being sent to an external lab?->No Performed By: #### C BC #### [address] [id number] Hemoglobin (Bld) [Mass/Vol] 13.2 g/dL Normal 12.0-15.0 [facility] Comment on above: Order Comment: With differential. Is this order Clinic Collect?->Yes Is this specimen being sent to an external lab?->No Performed By: #### C BC #### [address] [address] Immature granulocytes/100 WBC (Bld) 0.00 % Normal [facility] Comment on above: Order Comment: With differential. Is this order Clinic Collect?->Yes Is this specimen being sent to an external lab?->No Result Comment: Marika ture Granulocyte Percent includes promyelocytes, myelocytes, and metamyelocytes. IG% > 1.0 indicates a left shift is present. With automated differentials, bands are included in the neutrophil count and not in the Immature Granulocyte Percent. Performed By: #### C BC #### [address] [id number] Lymphocytes/100 WBC (Bld) 30.4 % Normal 24.0-44.0 [facility] Comment on above: Order Comment: With differential. Is this order Clinic Collect?->Yes Is this specimen being sent to an external lab?->No Performed By: #### C BC #### [address] [address] MCH (RBC) [Entitic mass] 29.9 pg Normal 26.0-34.0 [facility] Comment on above: Order Comment: With differential. Is this order Clinic Collect?->Yes Is this specimen being sent to an external lab?->No Performed By: #### C BC #### [address] [id number] MCHC (RBC) [Mass/Vol] 33.7 % Normal 31.0-37.0 [facility] Comment on above: Order Comment: With differential. Is this order Clinic Collect?->Yes Is this specimen being sent to an external lab?->No Performed By: #### C BC #### [address] [address] MCV (RBC) [Entitic vol] 88.9 fL Normal 80.0-100.0 [facility] Comment on above: Order Comment: With differential. Is this order Clinic Collect?->Yes Is this specimen being sent to an external lab?->No Performed By: #### C BC #### [address] [address] Monocytes/100 WBC (Bld) 6.70 % High 3.00-6.00 [facility] Comment on above: Order Comment: With differential. Is this order Clinic Collect?->Yes Is this specimen being sent to an external lab?->No Performed By: #### C BC #### [address] [address] Neutrophils (Bld) [#/Vol] 2.9 10*3/uL Normal 2.0-7.2 [facility] Comment on above: Order Comment: With differential. Is this order Clinic Collect?->Yes Is this specimen being sent to an external lab?->No Performed By: #### C BC #### [address] [address] Neutrophils/100 WBC (Bld) 61.0 % Normal 35.0-66.0 [facility] Comment on above: Order Comment: With differential. Is this order Clinic Collect?->Yes Is this specimen being sent to an external lab?->No Performed By: #### C BC #### [address] [address] Nucleated RBC/100 WBC (Bld) [Ratio] 0.0 % Normal -1.0-0.0 [facility] Comment on above: Order Comment: With differential. Is this order Clinic Collect?->Yes Is this specimen being sent to an external lab?->No Performed By: #### C BC #### [address] [id number] Platelet mean volume (Bld) [Entitic vol] 10.[address] [facility] Comment on above: Order Comment: With differential. Is this order Clinic Collect?->Yes Is this specimen being sent to an external lab?->No Result Comment: MPV is platelet range and age dependent Performed By: #### C BC #### [address] [address] Platelets (Bld) [#/Vol] 199 10*3/uL Normal 150-450 [facility] Comment on above: Order Comment: With differential. Is this order Clinic Collect?->Yes Is this specimen being sent to an external lab?->No Performed By: #### C BC #### [address] [address] RBC (Bld) [#/Vol] 4.41 10E12/L Normal 4.00-4.90 [facility] Comment on above: Order Comment: With differential. Is this order Clinic Collect?->Yes Is this specimen being sent to an external lab?->No Performed By: #### C BC #### [address] [address] WBC (Bld) [#/Vol] 4.8 10*3/uL Normal 4.5-11.0 [facility] Comment on above: Order Comment: With differential. Is this order Clinic Collect?->Yes Is this specimen being sent to an external lab?->No Performed By: #### C BC #### [address] [id number] Lipid Panelon 07-08-2020 Cholesterol [Mass/Vol] 196 mg/dL High 0-189 [facility] Comment on above: Order Comment: With differential. Is this order Clinic Collect?->Yes Is this specimen being sent to an external lab?->No Result Comment: Acceptable <190 mg/dL Borderline 190-224 mg/dL Abnormal >224 mg/dL NOTE: Reference Range change effective 10/21/18 Performed By: #### L IPID #### [address] [address] Cholesterol in HDL [Mass/Vol] 58 mg/dL Normal [facility] Comment on above: Order Comment: With differential. Is this order Clinic Collect?->Yes Is this specimen being sent to an external lab?->No Result Comment: Acceptable >45 mg/dL Borderline 40-44 mg/dL Abnormal <40 mg/dL NOTE: Reference Range change effective 10/21/18 Performed By: #### L IPID #### [address] [id number] Cholesterol in LDL [Mass/Vol] 127 mg/dL High 0-119 [facility] Comment on above: Order Comment: With differential. Is this order Clinic Collect?->Yes Is this specimen being sent to an external lab?->No Result Comment: Acceptable <120 mg/dL Borderline 120-159 mg/dL Abnormal >159 mg/dl NOTE: Reference Range change effective 10/21/18 Performed By: #### L IPID #### [address] [id number] Non-HDL Cholesterol 138 mg/dl Normal 0-149 [facility] Comment on above: Order Comment: With differential. Is this order Clinic Collect?->Yes Is this specimen being sent to an external lab?->No Result Comment: Acceptable <150 mg/dL Borderline 150-189 mg/dL Abnormal >189 mg/dl Performed By: #### L IPID #### [address] [id number] Triglyceride [Mass/Vol] 56 mg/dL Normal 0-114 [facility] Comment on above: Order Comment: With differential. Is this order Clinic Collect?->Yes Is this specimen being sent to an external lab?->No Result Comment: Acceptable <115 mg/dl Borderline 115-149 mg/dl Abnormal >149 mg/dl NOTE: Reference Range change effective 10/21/18 Result invalid if not a fasting specimen. Performed By: #### L IPID #### [address] [id number] Progress Noteon 07-05-2020 Associate Professor Of Sociology Authentication Interface Message Text Patient ID: Mojgan Alarcon is a 19 y.o. female. Her chief complaint(s) include: 19 YEAR WELL CHILD (thyroid question) Assessment 1. Routine general medical examination at a health care facility 2. Thyroid nodule 3. Moderate persistent asthma without complication 4. Elevated liver function tests Plan Mojgan was seen today for 19 year well child. Diagnoses and all orders for this visit: Routine general medical examination at a health care facility - Hearing Screening - PHQ9 Assessment With Score - Health Risk Assessment - CRAFFT - Lipid Panel (Lab Collect); Future Thyroid nodule - TSH with Reflex to T4, Free (Lab Collect); Future Moderate persistent asthma without complication - Complete Blood Count with Diff (Lab Collect); Future Elevated liver function tests - Lipid Panel (Lab Collect); Future - Comprehensive metabolic panel (Lab Collect); Future Return in about 1 year (around 07/05/2021) for well check. Reviewed need to follow with subspecialists. Discussed rechecking labs. Will continue to eat healthy and exercise. Subjective HPI Comments: Breathing has been good. Patient has been working with Dr. Peraza and trying to go down on medicine. Patient has finished treatment for TB. Patient has been eating healthier but has lost about 15 pounds. Patient not running as much as before. Had follow up with surgeon for thyroid goiter but no change noted. She is unaccompanied. 19 YEAR WELL CHILD Home: Mojgan eats meals with family, has an adult to turn to for help and is permitted and able to make independent decisions. 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 Eating: Mojgan eats regular meals including fruits and vegetables, eats breakfast, limits fast food, drinks non-sweetened liquids and has a calcium source. 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 working at [employer]) and performs at least 1 hour of physical activity daily. Drugs: Mojgan does not use tobacco, does not use drugs, does not use alcohol and does not vape. Safety: Mojgan has a violence free home, has peer relationships free from violence and uses seat belt. Mojgan does not use phone/text while driving. Sex: The patient has never had a sexual partner. The patient has never had sex. Suicidality: Mojgan has no depression, has no anxiety, has no suicidal ideation and has no homicidal ideation. Menstruation Menstruation: irregular periods and minimal cramping (sometimes close to 2 months between.) Output Urine and Stool Pattern: Urine and Stool Pattern: Normal stool pattern, no constipation, normal urine pattern. Stool Consistency: soft Sleep Sleeping Difficulty: no difficulty sleeping Hours of sleep at a time: 9 Teen Anticipatory Guidance The following anticipatory guidance was reviewed during the visit: Nutrition: limit junk food/fast food and soft drinks. Safety: home safety. Social: avoid or limit screen time and bullying. Health: age appropriate dental care, avoid situations where drugs and alcohol are present, how to resist peer pressure to smoke, drink, use drugs, identify adult who can give accurate information about sex, recognize that sexual feelings are normal but delay having sex, practice abstinence- the safest way to prevent and STDs, talk with trusted adult if feeling sad or nervous and limit sun exposure/use sunscreen. Screenings Previous Vaccine Reactions: No. Life events information was reviewed-no referral needed Hearing Vision Concerns: The caregiver has no concerns about the patient's hearing. The caregiver has no concerns about the patient's vision. Primary Care Review of Systems Objective Vital Signs 07/05/20 1314 BP: 130/76 Pulse: 83 Temp: 36.4 C (97.5 F) TempSrc: Temporal Weight: 56.7 kg Height: 167 cm Body mass index is 20.33 kg/m . Physical Exam Constitutional: She appears well. She is active. No distress. HENT: Head: Atraumatic. Ears: Right Ear: Tympanic membrane and external ear normal. Left Ear: Tympanic membrane and external ear normal. Nose: Nose normal. Mouth/Throat: Mucous membranes are moist. Dentition is normal. Oropharynx is clear. Eyes: Conjunctivae and EOM are normal. No strabismus. Pupils are equal, round, and reactive to light. Neck: Normal range of motion. Neck supple. Thyroid normal. Cardiovascular: Normal rate, regular rhythm, S1 normal and S2 normal. Pulses are palpable. Heart murmur not heard. Pulmonary/Chest: Breath sounds normal. No respiratory distress. Exhibits no deformity. Abdominal: Soft. Bowel sounds are normal. She exhibits no distension and no mass. There is no hepatosplenomegaly. There is no abdominal tenderness. Musculoskeletal: Normal range of motion. Back: She exhibits no scoliosis. Neurological: She is alert. She has normal strength. She exhibits normal muscle tone. Gait normal. Skin: Skin is warm and not pale. Findings: No rash. Vitals reviewed: Blood pressure 130/76, pulse 83, temperature 36.4 C (97.5 F), temperature source Temporal, height 167 cm, weight 56.7 kg. Mojgan Alarcon is a 19 y.o. female patient. PHQ9 Assessment With Score Performed by: Angelia Velez MD Authorized by: Angelia Velez MD PHQ-9 See PHQ9 Flowsheet Feeling down, depressed, irritable or hopeless: Not at all Little interest or pleasure in doing things: Not at all Trouble falling or staying sleep, or sleeping too much: Not at all Poor appetite, weight loss, or overeating: Not at all Feeling tired or having little energy: Not at all Feeling bad about yourself - or feeling that you are a failure, or have let yourself or your family down: Not at all Trouble concentrating on things, like school work, reading or watching TV: Not at all Moving or speaking so slowly that other people could have noticed. Or the opposite - being so fidgety or restless that you were moving around a lot more than usual: Not at all Thoughts that you would be better off , or of hurting yourself in some way: Not at all In the past year have you felt depressed or sad most days, even if you felt OK sometimes?: No If you are experiencing any of the problems on this form, how difficult have these problems made it for you to do your work, take care of things at home or get along with other people?: Not difficult at all Has there been a time in the past month when you have had serious thoughts about ending your life?: No Have you ever, in your whole life, tried to kill yourself or made a suicide attempt?: No PHQ-9 Total Score: 0 Health Risk Assessment - CRAFFT Authorized by: Angelia Velez MD [facility] Results: 1. Drink more than a few sips of beer, wine, or any drink containing alcohol? Put 0 if none.: 0 2. Use any marijuana (weed, oil, or hash by smoking, vaping, or in food) or synthetic marijuana (like K2, Spice)? Put 0 if none.: 0 3. Use anything else to get high (like other illegal drugs, prescription or kphi-lgu-hbboigt medications, and things that you sniff, dhillon, or vape)? Put 0 if none.: 0 4. Use any tobacco or nicotine products (for example, cigarettes, e-cigarettes, hookahs or smokeless tobacco)?: 0 5. Have you ever ridden in a CAR driven by someone (including yourself) who was high or had been using alcohol or drugs?: No Electronically signed by: Angelia Esquivel MD [facility] COVID PCR, SCREENING [facility] 05-11-2020 CORONAVIRUS 2019,PCR NOT DETECTED Normal Not Detected [facility] Comment on above: Result Comment: This assay is designed to detect the N, ORF1ab and/or S genes of SARS-CoV-2 via nucleic acid amplification. A Negative (NOT DETECTED) result does not preclude 2019-nCoV infection since the adequacy of sample collection and/or low viral burden may result in presence of viral nucleic acids below the clinical sensitivity of this test method. Negative (NOT DETECTED) result should not be used as the sole basis for treatment or other patient management decisions. Rather negative results should be combined with clinical observations, patient history, and epidemiological information to make patient management decisions. Fact sheet for providers: https://www.fda.gov/media/437894/download Fact sheet for patients: https://www.fda.gov/media/422574/download This test has received FDA Emergency Use Authorization (EUA) and has been verified by [facility] ([facility]). This test is only authorized for the duration of time that circumstances exist to justify the authorization of the emergency use of in vitro diagnostic tests for the detection of SARS-CoV-2 virus and/or diagnosis of COVID-19 infection under section 564(b)(1) of the Act, 21 U.S.C. 360bbb-3(b)(1), unless the authorization is terminated or revoked sooner. [facility]) is certified under CLIA-88 as qualified to perform high complexity testing. This tests analytical performance characteristics have been determined by [facility]. Testing is performed at [facility] is located at [address] [place] [address] (CLIA License #[id number], CAP #[id number]). Performed By: #### C VCLA #### [facility] [address] [place] [address] COVID PCR, SCREENING [facility] ATEon 05-10-2020 Lab Specimen Source Nasal, Nasopharyngeal Normal [facility] Comment on above: Performed By: #### C VCLA #### [facility] [address] [place] [address] Progress Noteon 03-31-2020 Associate Professor Of Sociology Authentication Interface Message Text Mojgan Alarcon is here for follow-up for: No chief complaint on file. Assessment Mojgan is a 19 y.o. female with severe persistent asthma here for follow up of LTBI. She is doing well with good adherence to INH and no reported side effects. Plan - Continue INH 300mg PO daily - Instructed to call if any nausea, vomiting, abdominal pain, jaundice, or parasthesias in hands/feet, or other problems with the medications - Will continue therapy until full 270 prescribed doses are on completed (about April 2020) - No further follow up with me planned. To send us a Ribbit message when she completes the last of her prescribed doses and we will send her a TB letter Kenneth Emerson M.D. Infectious Diseases 03/31/2020 9:04 AM History of Present Illness Mojgan is a 19 y.o. female with severe persistent asthma here for follow up of LTBI. Since we saw her last she has been doing well. She reports no missed doses of her INH. She has not had any side effects noted from her medication. She specifically denies nausea, vomiting, abdominal pain, jaundice, or numbness and tingling in her extremities. She continues to eat a balanced diet and avoid alcohol. She not had any intercurrent illnesses since the resolution of the illness she was experiencing at her last visit with me in December which lasted several weeks. She has no other concerns at this time. Review of Systems Review of Systems: Constitution: Negative. Respiratory: Negative. Skin: Negative. Gastrointestinal: Negative. Genitourinary: Negative. Recent Lab Results No recent labs Recent Imaging Findings No results found. Physical Examination Vitals: There were no vitals taken for this visit. Medications Outpatient Encounter Medications as of 03/31/2020 Medication Sig Dispense Refill ELDERBERRY PO Take by mouth Levalbuterol HCl (XOPENEX) 1.25 MG/0.5ML NEBU nebulizer solution Use 1.25 mg by nebulization every 4 hours as needed isoniazid (NYDRAZID) 300 MG tablet Take 1 Tab (300 mg) by mouth daily for 270 doses 30 Tab 8 Calcium Carbonate (CALCIUM 600 PO) Take by mouth Takes two daily fexofenadine (CHRISTINE) 180 MG tablet TAKE 1 TABLET BY MOUTH EVERY DAY 0 fluticasone (FLONASE) 50 MCG/ACT nasal spray instill 1 spray into each nostril one to two times a day 0 montelukast (SINGULAIR) 10 MG tablet Take 1 tablet (10 mg) by mouth daily in the evening 10 Aclidinium [place] (TUDORZA PRESSAIR) 400 MCG/ACT AEPB Inhale 1 Puff into the lungs 2 times daily as needed for Other (cough) BREO ELLIPTA 200-25 MCG/INH AEPB Inhale 1 Puff into the lungs daily ipratropium (ATROVENT) 0.02 % nebulizer solution Use 2.5 mL (500 mcg) by nebulization every 8 hours as needed for Wheezing 125 mL 2 Respiratory Therapy Supplies (NEBULIZER/TUBING/NISSA THPIECE) KIT Use with inhaled medication as instructed. 1 Each 0 No facility-administered encounter medications on file as of 03/31/2020. Past Medical History Past Medical History: Diagnosis Date Asthma Asthma Tuberculosis latent Past Surgical History No past surgical history on file. Family Medical History Family History Problem Relation Age of Onset Allergies Mother No known problems Father Allergies Sister Asthma Sister Allergies Brother Asthma Brother Reflux Brother Other Sister polycystic ovary Allergies Sister Asthma Brother Allergies Brother Reflux Brother Allergies Brother Asthma Brother Reflux Brother Social History Social History Socioeconomic History Marital status: Single Spouse name: Not on file Number of children: Not on file Years of education: Not on file Highest education level: Not on file Occupational History Not on file Social Needs Financial resource strain: Not on file Food insecurity Worry: Not on file Inability: Not on file Transportation needs Medical: Not on file Non-medical: Not on file Tobacco Use Smoking status: Never Smoker Smokeless tobacco: Never Used Substance and Sexual Activity Alcohol use: Not on file Drug use: Not on file Sexual activity: Not on file Lifestyle Physical activity Days per week: Not on file Minutes per session: Not on file Stress: Not on file Relationships Social connections Talks on phone: Not on file Gets together: Not on file Attends anabaptist service: Not on file Active member of club or organization: Not on file Attends meetings of clubs or organizations: Not on file Relationship status: Not on file Intimate partner violence Fear of current or ex partner: Not on file Emotionally abused: Not on file Physically abused: Not on file Forced sexual activity: Not on file Other Topics Concern Not on file Social History Narrative Not on file ID History Infectious Disease history normal: term no complications vaginal delivery Child Attends Daycare? No college this fall Growth & development normal? yes Sick contacts: No Has the patient ever been hospitalized? No Patient lives with: mom dad and 6 siblings Pets: outside dogs chickens cows cats turkeys Travel: none but prison 2 years noq Per parents, immunizations are up to date. Yes Influenza Vaccine Yes Immunizations Immunization History Administered Date(s) Administered DTaP 1999, 02/22/2000, 04/18/2000, 11/25/2000, 08/16/2004 HIB 04/18/2000, 11/25/2000 HPV 06/01/2013, 10/22/2013, 06/02/2014 Hep B/HIB (COMVAX) 1999, 02/22/2000 Hepatitis A (PED/ADOL) 06/01/2013, 06/02/2014 Hepatitis B Ped/Adol 09/19/2000 INFLUENZA SPLIT 0.5 ML 09/09/2010, 08/10/2011, 08/30/2012 IPV 1999, 02/22/2000, 04/18/2000, 08/16/2004 Influenza Vaccine 10/07/2000, 11/06/2000, 10/20/2001, 08/28/2002, 09/07/2003, 09/28/2004, 09/17/2005, 09/23/2006, 09/20/2007, 09/02/2008, 08/13/2009 Influenza Vaccine 0.5 mL >= 3 yr Quadrivalent 08/18/2019 Influenza Vaccine 0.5 mL Quadrivalent (PF) 09/10/2014 MMR 09/19/2000, 08/16/2004 Meningococcal Conjugate ACWY Vaccine (MENACTRA) 06/20/2011, 07/09/2017 Tdap 09/09/2010, 06/19/2019 20 minutes was spent in counseling this patient/family and any other caregiver(s) involved with this patient to satisfy all inquiries. In addition, the following items were performed before, during and after this visit: Record Review. Kenneth Emerson MD March 31, 2020 This is a telemedicine video visit requested by the patient/guardian that was performed with the originating site at home and the distant site at office. This visit occurred during the Coronavirus (COVID-19) Public Health Emergency. Normal [facility] Progress Noteon 01-07-2020 Associate Professor Of Sociology Authentication Interface Message Text Mojgan Alarcon is here for follow-up for: No chief complaint on file. Assessment Mojgan? is a? 19 y.o.? female? with severe persistent asthma here for follow up of LTBI. ? She is doing well with good adherence to INH and no reported side effects.? She also has a URI but no evidence of an asthma exacerbation or pneumonia at this time. Plan ? - Continue INH 300mg PO daily ? - F/U in about 8 weeks ? - Instructed to call if any nausea, vomiting, abdominal pain, jaundice, or parasthesias in hands/feet, or other problems with the medications ? - Will continue therapy until full 270 prescribed doses are on completed (about April 2020) Kenneth Emerson M.D. Infectious Diseases 01/08/2020 10:24 AM History of Present Illness Mojgan is a 19 y.o. female with a past medical history of severe persistent asthma here for follow up of LTBI. ? We initially started her on the 3-HP regimen but she developed flu-like symptoms which were temporally associated with the Rifapentine so we converted her to 9-INH. She has elected to pursue treatment in spite of her low risk of infection because she is at increased risk of progression due to her frequent need for high-dose steroids to treat her asthma. ? Since we saw her last she has been doing well. Asthma has been well controlled except she wonders if she is having an exacerbation now because she has just started having URI symptoms. She has arranged to see her personnel security specialist later today. Maybe 1-2 missed doses of INH/month. Still eating a balanced diet and avoiding alcohol. Denies any episodes of abdominal pain, jaundice, or vomiting. Denies any parasthesias, numbness, or tingling in her hands/feet. No other concerns today. 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 Review of Systems Review of Systems: Constitution: Negative. Eyes: Negative. Respiratory: Negative. Skin: Negative. HENT: Negative. Heme/Lymph: Negative. Musculoskeletal: Negative. Gastrointestinal: Negative. Genitourinary: Negative. Neurological: Negative. Recent Lab Results No recent labs Recent Imaging Findings No results found. Physical Examination Vitals: BP 122/61 Pulse 73 Temp 36.5 C (97.7 F) (Temporal) Resp 16 Wt 64.7 kg Physical Exam Constitutional: She appears well. She is active. No distress. HENT: Head: Atraumatic. Right Ear: Tympanic membrane and external ear normal. Left Ear: Tympanic membrane and external ear normal. Nose: Nasal discharge (erythema, congestion noted) present. Mouth/Throat: Mucous membranes are moist. No tonsillar exudate. Oropharynx is clear. Hoarse voice is noted Eyes: Conjunctivae are normal. Pupils are equal, round, and reactive to light. Right eye exhibits no discharge. Left eye exhibits no discharge. Neck: Normal range of motion. Neck supple. No neck adenopathy. Cardiovascular: Regular rhythm, S1 normal and S2 normal. Pulses are strong. Heart murmur not heard. Pulmonary/Chest: Effort normal and breath sounds normal. She has no wheezes. She has no rhonchi. She has no rales. Abdominal: Bowel sounds are normal. She exhibits no distension. Soft. There is no hepatosplenomegaly. There is no abdominal tenderness. Genitourinary: did not examine. Musculoskeletal: No pain, swelling, or limited range of motion at any joint. Neurological: She is alert. Skin: No rash noted. Skin is warm and dry. Medications Outpatient Encounter Medications as of 01/07/2020 Medication Sig Dispense Refill ? Levalbuterol HCl (XOPENEX) 1.25 MG/0.5ML NEBU nebulizer solution Use 1.25 mg by nebulization every 4 hours as needed ? isoniazid (NYDRAZID) 300 MG tablet Take 1 Tab (300 mg) by mouth daily for 270 doses 30 Tab 8 ? Calcium Carbonate (CALCIUM 600 PO) Take by mouth Takes two daily ? fexofenadine (CHRISTINE) 180 MG tablet TAKE 1 TABLET BY MOUTH EVERY DAY 0 ? fluticasone (FLONASE) 50 MCG/ACT nasal spray instill 1 spray into each nostril one to two times a day 0 ? montelukast (SINGULAIR) 10 MG tablet Take 1 tablet (10 mg) by mouth daily in the evening 10 ? Aclidinium [place] (TUDORZA PRESSAIR) 400 MCG/ACT AEPB Inhale 1 Puff into the lungs 2 times daily as needed for Other (cough) ? BREO ELLIPTA 200-25 MCG/INH AEPB Inhale 1 Puff into the lungs daily ? ipratropium (ATROVENT) 0.02 % nebulizer solution Use 2.5 mL (500 mcg) by nebulization every 8 hours as needed for Wheezing 125 mL 2 ? Respiratory Therapy Supplies (NEBULIZER/TUBING/NISSA THPIECE) KIT Use with inhaled medication as instructed. (Patient not taking: Reported on 08/20/2019) 1 Each 0 No facility-administered encounter medications on file as of 01/07/2020. Past Medical History Past Medical History: Diagnosis Date ? Asthma ? Asthma ? Tuberculosis latent Past Surgical History No past surgical history on file. Family Medical History Family History Problem Relation Age of Onset ? Allergies Mother ? No known problems Father ? Allergies Sister ? Asthma Sister ? Allergies Brother ? Asthma Brother ? Reflux Brother ? Other Sister polycystic ovary ? Allergies Sister ? Asthma Brother ? Allergies Brother ? Reflux Brother ? Allergies Brother ? Asthma Brother ? Reflux Brother Social History Social History Socioeconomic History ? Marital status: Single Spouse name: None ? Number of children: None ? Years of education: None ? Highest education level: None Occupational History ? None Social Needs ? Financial resource strain: None ? Food insecurity Worry: None Inability: None ? Transportation needs Medical: None Non-medical: None Tobacco Use ? Smoking status: Never Smoker ? Smokeless tobacco: Never Used Substance and Sexual Activity ? Alcohol use: None ? Drug use: None ? Sexual activity: None Lifestyle ? Physical activity Days per week: None Minutes per session: None ? Stress: None Relationships ? Social connections Talks on phone: None Gets together: None Attends anabaptist service: None Active member of club or organization: None Attends meetings of clubs or organizations: None Relationship status: None ? Intimate partner violence Fear of current or ex partner: None Emotionally abused: None Physically abused: None Forced sexual activity: None Other Topics Concern ? None Social History Narrative ? None ID History Infectious Disease ? history normal: term no complications vaginal delivery ? Child Attends Daycare? No college this fall ? Growth & development normal? yes ? Sick contacts: No ? Has the patient ever been hospitalized? No ? Patient lives with: mom dad and 6 siblings ? Pets: outside dogs chickens cows cats turkeys ? Travel: none but prison 2 years noq ? Per parents, immunizations are up to date. Yes ? Influenza Vaccine Yes Immunizations Immunization History Administered Date(s) Administered ? DTaP 1999, 02/22/2000, 04/18/2000, 11/25/2000, 08/16/2004 ? HIB 04/18/2000, 11/25/2000 ? HPV 06/01/2013, 10/22/2013, 06/02/2014 ? Hep B/HIB (COMVAX) 1999, 02/22/2000 ? Hepatitis A (PED/ADOL) 06/01/2013, 06/02/2014 ? Hepatitis B Ped/Adol 09/19/2000 ? INFLUENZA SPLIT 0.5 ML 09/09/2010, 08/10/2011, 08/30/2012 ? IPV 1999, 02/22/2000, 04/18/2000, 08/16/2004 ? Influenza Vaccine 10/07/2000, 11/06/2000, 10/20/2001, 08/28/2002, 09/07/2003, 09/28/2004, 09/17/2005, 09/23/2006, 09/20/2007, 09/02/2008, 08/13/2009 ? Influenza Vaccine 0.5 mL Quadrivalent (PF) 09/10/2014 ? MMR 09/19/2000, 08/16/2004 ? Meningococcal Conjugate ACWY Vaccine (MENACTRA) 06/20/2011, 07/09/2017 ? Tdap 09/09/2010, 06/19/2019 20 minutes was spent in counseling this patient/family and any other caregiver(s) involved with this patient to satisfy all inquiries. In addition, the following items were performed during this visit: Physical exam of patient or family member. Kenneth Emerson MD January 07, 2020 [facility] Progress Noteon 11-03-2019 Associate Professor Of Sociology Authentication Interface Message Text Mojgan Alarcon is here for follow-up for: No chief complaint on file. Assessment Mojgan is a 19 y.o. female with severe persistent asthma here for follow up of LTBI. She is doing well with good adherence to INH and no reported side effects. Plan - Continue INH 300mg PO daily - F/U in about 6 weeks - Instructed to call if any nausea, vomiting, abdominal pain, jaundice, or parasthesias in hands/feet, or other problems with the medications - Will continue therapy until full 270 prescribed doses are on completed Kenneth Emerson M.D. Infectious Diseases 11/03/2019 9:16 AM History of Present Illness Mojgan is a 19 y.o. female with a past medical history of severe persistent asthma here for follow up of LTBI. We initially started her on the 3-HP regimen but she developed flu-like symptoms which were temporally associated with the Rifapentine so we converted her to 9-INH. She has elected to pursue treatment in spite of her low risk of infection because she is at increased risk of progression due to her frequent need for high-dose steroids to treat her asthma. Since we saw her last she has been doing well. Asthma has been well controlled. She was prescribed a course of oral steroids in August but pulled through and didn't need to take them. Maybe 1-2 missed doses of INH/month. Still eating a balanced diet and avoiding alcohol. Denies any episodes of abdominal pain, jaundice, or vomiting. Denies any parasthesias, numbness, or tingling in her hands/feet. No other concerns today. Finished finals last week. 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 Review of Systems Review of Systems: Constitution: Negative. Respiratory: Negative. Skin: Negative. Gastrointestinal: Negative. Genitourinary: Negative. Recent Lab Results NO recent labs. Recent Imaging Findings No results found. Physical Examination Vitals: There were no vitals taken for this visit. Physical Exam Constitutional: She appears well. She is active. No distress. Eyes: Conjunctivae are normal. Right eye exhibits no discharge. Left eye exhibits no discharge. Cardiovascular: Regular rhythm, S1 normal and S2 normal. Pulses are strong. Heart murmur not heard. Pulmonary/Chest: Effort normal and breath sounds normal. She has no wheezes. She has no rhonchi. She has no rales. Abdominal: Bowel sounds are normal. She exhibits no distension. Soft. There is no hepatosplenomegaly. There is no tenderness. Genitourinary: did not examine. Musculoskeletal: No pain, swelling, or limited range of motion at any joint. Neurological: She is alert. Skin: No rash noted. Skin is warm and dry. Medications Outpatient Encounter Medications as of 11/03/2019 Medication Sig Dispense Refill isoniazid (NYDRAZID) 300 MG tablet Take 1 Tab (300 mg) by mouth daily for 270 doses 30 Tab 8 Calcium Carbonate (CALCIUM 600 PO) Take by mouth Takes two daily fexofenadine (CHRISTINE) 180 MG tablet TAKE 1 TABLET BY MOUTH EVERY DAY 0 fluticasone (FLONASE) 50 MCG/ACT nasal spray instill 1 spray into each nostril one to two times a day 0 albuterol 108 (90 Base) MCG/ACT inhaler Inhale 2 Puffs into the lungs every 6 hours as needed for Wheezing Use with spacer. (Patient not taking: Reported on 07/16/2019) 1 Inhaler 1 montelukast (SINGULAIR) 10 MG tablet Take 1 tablet (10 mg) by mouth daily in the evening 10 Aclidinium [place] (TUDORZA PRESSAIR) 400 MCG/ACT AEPB Inhale 1 Puff into the lungs 2 times daily as needed for Other (cough) BREO ELLIPTA 200-25 MCG/INH AEPB Inhale 1 Puff into the lungs daily levalbuterol (XOPENEX) 1.25 MG/3ML nebulizer solution INHALE THE contents OF one vial (3ml) via NEBULIZER into THE lungs EVERY 4 HOURS NEEDED FOR WHEEZING (Patient not taking: Reported on 08/20/2019) 72 mL 2 ipratropium (ATROVENT) 0.02 % nebulizer solution Use 2.5 mL (500 mcg) by nebulization every 8 hours as needed for Wheezing (Patient not taking: Reported on 08/20/2019) 125 mL 2 Respiratory Therapy Supplies (NEBULIZER/TUBING/NISSA THPIECE) KIT Use with inhaled medication as instructed. (Patient not taking: Reported on 08/20/2019) 1 Each 0 No facility-administered encounter medications on file as of 11/03/2019. Past Medical History Past Medical History: Diagnosis Date Asthma Asthma Tuberculosis latent Past Surgical History No past surgical history on file. Family Medical History Family History Problem Relation Age of Onset Allergies Mother No known problems Father Allergies Sister Asthma Sister Allergies Brother Asthma Brother Reflux Brother Other Sister polycystic ovary Allergies Sister Asthma Brother Allergies Brother Reflux Brother Allergies Brother Asthma Brother Reflux Brother Social History Social History Socioeconomic History Marital status: Single Spouse name: Not on file Number of children: Not on file Years of education: Not on file Highest education level: Not on file Occupational History Not on file Social Needs Financial resource strain: Not on file Food insecurity Worry: Not on file Inability: Not on file Transportation needs Medical: Not on file Non-medical: Not on file Tobacco Use Smoking status: Never Smoker Smokeless tobacco: Never Used Substance and Sexual Activity Alcohol use: Not on file Drug use: Not on file Sexual activity: Not on file Lifestyle Physical activity Days per week: Not on file Minutes per session: Not on file Stress: Not on file Relationships Social connections Talks on phone: Not on file Gets together: Not on file Attends anabaptist service: Not on file Active member of club or organization: Not on file Attends meetings of clubs or organizations: Not on file Relationship status: Not on file Intimate partner violence Fear of current or ex partner: Not on file Emotionally abused: Not on file Physically abused: Not on file Forced sexual activity: Not on file Other Topics Concern Not on file Social History Narrative Not on file ID History Infectious Disease history normal: term no complications vaginal delivery Child Attends Daycare? No college this fall Growth & development normal? yes Sick contacts: No Has the patient ever been hospitalized? No Patient lives with: mom dad and 6 siblings Pets: outside dogs chickens cows cats turkeys Travel: none but prison 2 years noq Per parents, immunizations are up to date. Yes Influenza Vaccine Yes Immunizations Immunization History Administered Date(s) Administered DTaP 1999, 02/22/2000, 04/18/2000, 11/25/2000, 08/16/2004 HIB 04/18/2000, 11/25/2000 HPV 06/01/2013, 10/22/2013, 06/02/2014 Hep B/HIB (COMVAX) 1999, 02/22/2000 Hepatitis A (PED/ADOL) 06/01/2013, 06/02/2014 Hepatitis B Ped/Adol 09/19/2000 INFLUENZA SPLIT 0.5 ML 09/09/2010, 08/10/2011, 08/30/2012 IPV 1999, 02/22/2000, 04/18/2000, 08/16/2004 Influenza Vaccine 10/07/2000, 11/06/2000, 10/20/2001, 08/28/2002, 09/07/2003, 09/28/2004, 09/17/2005, 09/23/2006, 09/20/2007, 09/02/2008, 08/13/2009 Influenza Vaccine 0.5 mL Quadrivalent (PF) 09/10/2014 MMR 09/19/2000, 08/16/2004 Meningococcal Conjugate ACWY Vaccine (MENACTRA) 06/20/2011, 07/09/2017 Tdap 09/09/2010, 06/19/2019 20 minutes was spent in counseling this patient/family and any other caregiver(s) involved with this patient to satisfy all inquiries. In addition, the following items were performed before and during this visit: Record Review and Physical exam of patient or family member. Kenneth Emerson MD November 03, 2019 [facility] Progress Noteon 08-20-2019 Associate Professor Of Sociology Authentication Interface Message Text Mojgan Alarcon is here for follow-up for: Follow Up Assessment Mojgan is a 19 y.o. female with severe persistent asthma here for follow up of LTBI. She is doing well with good adherence to INH and no reported side effects. Plan - Continue INH 300mg PO daily - F/U in about 6 weeks - Instructed to call if any nausea, vomiting, abdominal pain, jaundice, or parasthesias in hands/feet, or other problems with the medications - Will continue therapy until full 270 prescribed doses are on completed Kenneth Emerson M.D. Infectious Diseases 08/24/2019 10:14 AM History of Present Illness Mojgan is a 19 y.o. female with a past medical history of severe persistent asthma here for follow up of LTBI. We initially started her on the 3-HP regimen but she developed flu-like symptoms which were temporally associated with the Rifapentine so we converted her to 9-INH. She has elected to pursue treatment in spite of her low risk of infection because she is at increased risk of progression due to her frequent need for high-dose steroids to treat her asthma. Since we saw her last she has been doing well. She has missed maybe 2 doses or so of the INH in the past 6 weeks. She has not noticed any side effects and specifically denies any nausea, vomiting, abdominal pain, numbness/tingling in her fingers or toes. She has not had any intercurrent illnesses, has maintained a balanced diet, and denies drinking any alcohol. Although this is typically a difficult time of year for her, her asthma has been well controlled and she has not needed any systemic steroids. 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 Review of Systems Review of Systems: Constitution: Negative. Respiratory: Negative. Skin: Negative. Gastrointestinal: Negative. Genitourinary: Negative. Recent Lab Results NO recent labs. Recent Imaging Findings No results found. Physical Examination Vitals: BP 122/61 Pulse 76 Temp 36.3 C (97.3 F) (Temporal) Resp 16 Wt 63.5 kg LMP 08/16/2019 Physical Exam Constitutional: She appears well. She is active. No distress. HENT: Head: Atraumatic. Nose: Nose normal. Mouth/Throat: Mucous membranes are moist. No tonsillar exudate. Oropharynx is clear. Eyes: Conjunctivae are normal. Pupils are equal, round, and reactive to light. Right eye exhibits no discharge. Left eye exhibits no discharge. Neck: Normal range of motion. Neck supple. No neck adenopathy. Cardiovascular: Regular rhythm, S1 normal and S2 normal. Pulses are strong. Heart murmur not heard. Pulmonary/Chest: Effort normal and breath sounds normal. She has no wheezes. She has no rhonchi. She has no rales. Abdominal: Bowel sounds are normal. She exhibits no distension. Soft. There is no hepatosplenomegaly. There is no tenderness. Genitourinary: did not examine. Musculoskeletal: No pain, swelling, or limited range of motion at any joint. Neurological: She is alert. Skin: No rash noted. Skin is warm and dry. Medications Outpatient Encounter Medications as of 08/20/2019 Medication Sig Dispense Refill isoniazid (NYDRAZID) 300 MG tablet Take 1 Tab (300 mg) by mouth daily for 270 doses 30 Tab 8 Calcium Carbonate (CALCIUM 600 PO) Take by mouth Takes two daily fexofenadine (CHRISTINE) 180 MG tablet TAKE 1 TABLET BY MOUTH EVERY DAY 0 fluticasone (FLONASE) 50 MCG/ACT nasal spray instill 1 spray into each nostril one to two times a day 0 montelukast (SINGULAIR) 10 MG tablet Take 1 tablet (10 mg) by mouth daily in the evening 10 BREO ELLIPTA 200-25 MCG/INH AEPB Inhale 1 Puff into the lungs daily albuterol 108 (90 Base) MCG/ACT inhaler Inhale 2 Puffs into the lungs every 6 hours as needed for Wheezing Use with spacer. (Patient not taking: Reported on 07/16/2019) 1 Inhaler 1 Aclidinium [place] (TUDORZA PRESSAIR) 400 MCG/ACT AEPB Inhale 1 Puff into the lungs 2 times daily as needed for Other (cough) levalbuterol (XOPENEX) 1.25 MG/3ML nebulizer solution INHALE THE contents OF one vial (3ml) via NEBULIZER into THE lungs EVERY 4 HOURS NEEDED FOR WHEEZING (Patient not taking: Reported on 08/20/2019) 72 mL 2 ipratropium (ATROVENT) 0.02 % nebulizer solution Use 2.5 mL (500 mcg) by nebulization every 8 hours as needed for Wheezing (Patient not taking: Reported on 08/20/2019) 125 mL 2 Respiratory Therapy Supplies (NEBULIZER/TUBING/NISSA THPIECE) KIT Use with inhaled medication as instructed. (Patient not taking: Reported on 08/20/2019) 1 Each 0 No facility-administered encounter medications on file as of 08/20/2019. Past Medical History Past Medical History: Diagnosis Date Asthma Asthma Tuberculosis latent Past Surgical History No past surgical history on file. Family Medical History Family History Problem Relation Age of Onset Allergies Mother No known problems Father Allergies Sister Asthma Sister Allergies Brother Asthma Brother Reflux Brother Other Sister polycystic ovary Allergies Sister Asthma Brother Allergies Brother Reflux Brother Allergies Brother Asthma Brother Reflux Brother Social History Social History Socioeconomic History Marital status: Single Spouse name: None Number of children: None Years of education: None Highest education level: None Occupational History None Social Needs Financial resource strain: None Food insecurity: Worry: None Inability: None Transportation needs: Medical: None Non-medical: None Tobacco Use Smoking status: Never Smoker Smokeless tobacco: Never Used Substance and Sexual Activity Alcohol use: None Drug use: None Sexual activity: None Lifestyle Physical activity: Days per week: None Minutes per session: None Stress: None Relationships Social connections: Talks on phone: None Gets together: None Attends anabaptist service: None Active member of club or organization: None Attends meetings of clubs or organizations: None Relationship status: None Intimate partner violence: Fear of current or ex partner: None Emotionally abused: None Physically abused: None Forced sexual activity: None Other Topics Concern None Social History Narrative None ID History Infectious Disease history normal: term no complications vaginal delivery Child Attends Daycare? No college this fall Growth & development normal? yes Sick contacts: No Has the patient ever been hospitalized? No Patient lives with: mom dad and 6 siblings Pets: outside dogs chickens cows cats turkeys Travel: none but prison 2 years noq Per parents, immunizations are up to date. Yes Influenza Vaccine Yes Immunizations Immunization History Administered Date(s) Administered DTaP 1999, 02/22/2000, 04/18/2000, 11/25/2000, 08/16/2004 HIB 04/18/2000, 11/25/2000 HPV 06/01/2013, 10/22/2013, 06/02/2014 Hep B/HIB (COMVAX) 1999, 02/22/2000 Hepatitis A (PED/ADOL) 06/01/2013, 06/02/2014 Hepatitis B Ped/Adol 09/19/2000 INFLUENZA SPLIT 0.5 ML 09/09/2010, 08/10/2011, 08/30/2012 IPV 1999, 02/22/2000, 04/18/2000, 08/16/2004 Influenza Vaccine 10/07/2000, 11/06/2000, 10/20/2001, 08/28/2002, 09/07/2003, 09/28/2004, 09/17/2005, 09/23/2006, 09/20/2007, 09/02/2008, 08/13/2009 Influenza Vaccine 0.5 mL Quadrivalent (PF) 09/10/2014 MMR 09/19/2000, 08/16/2004 Meningococcal Conjugate ACWY Vaccine (MENACTRA) 06/20/2011, 07/09/2017 Tdap 09/09/2010, 06/19/2019 20 minutes was spent in counseling this patient/family and any other caregiver(s) involved with this patient to satisfy all inquiries. In addition, the following items were performed during this visit: Physical exam of patient or family member. Kenneth Emerson MD August 24, 2019 [facility] Progress Noteon 07-23-2019 Associate Professor Of Sociology Authentication Interface Message Text Mojgan Alarcon is here for follow-up for: Follow Up (24 hours after chills and fever after TB meds, tired and weak after meds) Assessment Mojgan is a 18 y.o. female with LTBI low risk of infection, moderate to high risk of progression here for reevaluation due to adverse reaction to 3-HP. Believe the flu-like symptoms are likely from the Rifapentine as this has been described with Rifampin and is generally a contraindication to continuation of therapy. Plan - Stop 3-HP - Will start on 9-INH - Patient to message me with how many INH pills she have remaining and will prescribe QS to make up planned 270 doses - Counseled to avoid alcohol, maintain adequate vitamin intake, call if any jaundice, abdominal pain w/ vomiting, or numbness/tingling in her hands/feet - F/U in 4-6 weeks Kenneth Emerson M.D. Infectious Diseases 07/23/2019 3:28 PM History of Present Illness Mojgan is a 18 y.o. female with LTBI low risk of infection, moderate to high risk of progression here for reevaluation due to adverse reaction to 3-HP. She started 3-HP 3 weeks ago. She had very mild flu-like symptoms after her first dose. After her second dose she had fever to 101F and severe bodyaches lasting about 24 hours without other symptoms. We tried a reduced dose 300mg of each drug last week and she had similar symptoms for 24 hours post. She is currently feeling well and is asymptomatic. She did not take the second part of last week's 3-HP dose. Review of Systems Review of Systems: Constitution: Negative. Eyes: Negative. Respiratory: Negative. Skin: Negative. HENT: Negative. Heme/Lymph: Negative. Musculoskeletal: Negative. Gastrointestinal: Negative. Genitourinary: Negative. Neurological: Negative. Recent Lab Results Last CBC: Last CMP: Last CRP: No results found for: CRP Recent Imaging Findings No results found. Physical Examination Vitals: BP 121/54 Pulse 70 Temp 36.3 C (97.3 F) (Temporal) Resp 20 Ht 164.5 cm Wt 63.5 kg LMP 07/16/2019 (Exact Date) BMI 23.47 kg/m Physical Exam Constitutional: She appears well. She is active. No distress. HENT: Head: Atraumatic. Nose: Nose normal. Mouth/Throat: Mucous membranes are moist. No tonsillar exudate. Oropharynx is clear. Eyes: Conjunctivae are normal. Pupils are equal, round, and reactive to light. Right eye exhibits no discharge. Left eye exhibits no discharge. Neck: Normal range of motion. Neck supple. No neck adenopathy. Cardiovascular: Regular rhythm, S1 normal and S2 normal. Pulses are strong. Heart murmur not heard. Pulmonary/Chest: Effort normal and breath sounds normal. She has no wheezes. She has no rhonchi. She has no rales. Abdominal: Bowel sounds are normal. She exhibits no distension. Soft. There is no hepatosplenomegaly. There is no tenderness. Genitourinary: did not examine. Musculoskeletal: No pain, swelling, or limited range of motion at any joint. Neurological: She is alert. Skin: No rash noted. Skin is warm and dry. Medications Outpatient Encounter Medications as of 07/23/2019 Medication Sig Dispense Refill Calcium Carbonate (CALCIUM 600 PO) Take by mouth Takes two daily fexofenadine (CHRISTINE) 180 MG tablet TAKE 1 TABLET BY MOUTH EVERY DAY 0 fluticasone (FLONASE) 50 MCG/ACT nasal spray instill 1 spray into each nostril one to two times a day 0 montelukast (SINGULAIR) 10 MG tablet Take 1 tablet (10 mg) by mouth daily in the evening 10 Aclidinium [place] (TUDORZA PRESSAIR) 400 MCG/ACT AEPB Inhale 1 Puff into the lungs 2 times daily as needed for Other (cough) BREO ELLIPTA 200-25 MCG/INH AEPB Inhale 1 Puff into the lungs daily levalbuterol (XOPENEX) 1.25 MG/3ML nebulizer solution INHALE THE contents OF one vial (3ml) via NEBULIZER into THE lungs EVERY 4 HOURS NEEDED FOR WHEEZING 72 mL 2 ipratropium (ATROVENT) 0.02 % nebulizer solution Use 2.5 mL (500 mcg) by nebulization every 8 hours as needed for Wheezing 125 mL 2 Respiratory Therapy Supplies (NEBULIZER/TUBING/NISSA THPIECE) KIT Use with inhaled medication as instructed. 1 Each 0 Rifapentine 150 MG TABS Take 900 mg by mouth once a week for 12 doses (Patient not taking: Reported on 07/23/2019) 28 Each 2 isoniazid (NYDRAZID) 300 MG tablet Take 3 Tabs (900 mg) by mouth once a week for 12 doses (Patient not taking: Reported on 07/23/2019) 12 Tab 2 albuterol 108 (90 Base) MCG/ACT inhaler Inhale 2 Puffs into the lungs every 6 hours as needed for Wheezing Use with spacer. (Patient not taking: Reported on 07/16/2019) 1 Inhaler 1 No facility-administered encounter medications on file as of 07/23/2019. Past Medical History Past Medical History: Diagnosis Date Asthma Asthma Tuberculosis latent Past Surgical History No past surgical history on file. Family Medical History Family History Problem Relation Age of Onset Allergies Mother No known problems Father Allergies Sister Asthma Sister Allergies Brother Asthma Brother Reflux Brother Other Sister polycystic ovary Allergies Sister Asthma Brother Allergies Brother Reflux Brother Allergies Brother Asthma Brother Reflux Brother Social History Social History Socioeconomic History Marital status: Single Spouse name: Not on file Number of children: Not on file Years of education: Not on file Highest education level: Not on file Occupational History Not on file Social Needs Financial resource strain: Not on file Food insecurity: Worry: Not on file Inability: Not on file Transportation needs: Medical: Not on file Non-medical: Not on file Tobacco Use Smoking status: Never Smoker Smokeless tobacco: Never Used Substance and Sexual Activity Alcohol use: Not on file Drug use: Not on file Sexual activity: Not on file Lifestyle Physical activity: Days per week: Not on file Minutes per session: Not on file Stress: Not on file Relationships Social connections: Talks on phone: Not on file Gets together: Not on file Attends anabaptist service: Not on file Active member of club or organization: Not on file Attends meetings of clubs or organizations: Not on file Relationship status: Not on file Intimate partner violence: Fear of current or ex partner: Not on file Emotionally abused: Not on file Physically abused: Not on file Forced sexual activity: Not on file Other Topics Concern Not on file Social History Narrative Not on file ID History Infectious Disease history normal: term no complications vaginal delivery Child Attends Daycare? No college this fall Growth & development normal? yes Sick contacts: No Has the patient ever been hospitalized? No Patient lives with: mom dad and 6 siblings Pets: outside dogs chickens cows cats turkeys Travel: none but prison 2 years noq Per parents, immunizations are up to date. Yes Influenza Vaccine Yes Immunizations Immunization History Administered Date(s) Administered DTaP 1999, 02/22/2000, 04/18/2000, 11/25/2000, 08/16/2004 HIB 04/18/2000, 11/25/2000 HPV 06/01/2013, 10/22/2013, 06/02/2014 Hep B/HIB (COMVAX) 1999, 02/22/2000 Hepatitis A (PED/ADOL) 06/01/2013, 06/02/2014 Hepatitis B Ped/Adol 09/19/2000 INFLUENZA SPLIT 0.5 ML 09/09/2010, 08/10/2011, 08/30/2012 IPV 1999, 02/22/2000, 04/18/2000, 08/16/2004 Influenza Vaccine 10/07/2000, 11/06/2000, 10/20/2001, 08/28/2002, 09/07/2003, 09/28/2004, 09/17/2005, 09/23/2006, 09/20/2007, 09/02/2008, 08/13/2009 Influenza Vaccine 0.5 mL Quadrivalent (PF) 09/10/2014 MMR 09/19/2000, 08/16/2004 Meningococcal Conjugate ACWY Vaccine (MENACTRA) 06/20/2011, 07/09/2017 Tdap 09/09/2010, 06/19/2019 20 minutes was spent in counseling this patient/family and any other caregiver(s) involved with this patient to satisfy all inquiries. In addition, the following items were performed before and during this visit: Record Review and Physical exam of patient or family member. Kenneth Emerson MD July 23, [address] [facility] C-Reactive Proteinon 019 CRP [Mass/Vol] 35.8 mg/L High 0.0-6.0 [facility] Comment on above: Result Comment: . Performed By: #### H EMDF, CMP3, CRP2 #### [facility] [address] [place] [address] Comp Metabolic Panelon 07-09 ALT [Catalytic activity/Vol] 16 U/L Normal 13-69 [facility] Comment on above: Performed By: #### H EMDF CMP3, CRP2 #### [facility] [address] [place] [address] Calcium [Mass/Vol] 9.5 mg/dL Normal 8.4-10.4 [facility] Comment on above: Performed By: #### H EMDF CMP3, CRP2 #### [facility] [address] [place] [address] Glucose [Mass/Vol] 94 mg/dL Normal 70-100 [facility] Comment on above: Performed By: #### H EMDF, CMP3, CRP2 #### [facility] [address] [place] [address] Urea nitrogen [Mass/Vol] 13 mg/dL Normal 7-20 [facility] Comment on above: Performed By: #### H EMDF, CMP3, CRP2 #### [facility] [address] [place] [address] ALP [Catalytic activity/Vol] 59 U/L Normal 38-126 [facility] Comment on above: Performed By: #### H EMDF, CMP3, CRP2 #### [facility] [address] [place] [address] Anion gap [Moles/Vol] 12 Normal [facility] Comment on above: Performed By: #### H EMDF, CMP3, CRP2 #### [facility] [address] [place] [address] AST [Catalytic activity/Vol] 19 U/L Normal 15-46 [facility] Comment on above: Performed By: #### H EMDF, CMP3, CRP2 #### [facility] [address] [place] [address] Bilirubin [Mass/Vol] 1.2 mg/dL Normal 0.2-1.3 [facility] Comment on above: Performed By: #### H EMDAlaina, CMP3, CRP2 #### [facility] [address] [place] [address] CO2 [Moles/Vol] 24 mmol/L Normal 22-30 [facility] Comment on above: Performed By: #### H EMDF, CMP3, CRP2 #### [facility] [address] [place] [address] Creatinine [Mass/Vol] 0.57 mg/dL Normal 0.52-1.25 [facility] Comment on above: Performed By: #### H HARRIET, CMP3, CRP2 #### [facility] [address] [place] [address] GFR/1.73 sq M predicted among blacks MDRD (S/P/Bld) [Vol rate/Area] mL/min/{1.73_m2} Normal >60 [facility] Comment on above: Performed By: #### H EMDF, CMP3, CRP2 #### [facility] [address] [place] [address] GFR/1.73 sq M predicted among non-blacks MDRD (S/P/Bld) [Vol rate/Area] mL/min/{1.73_m2} Normal >60 [facility] Comment on above: Result Comment: Sour ce- MDRD equation with creatinine calibration to IDMS(NKDEP) eGFR not recommended for drug dose adjustment Performed By: #### H EMDF, CMP3, CRP2 #### [facility] [address] [place] [address] Protein [Mass/Vol] 7.0 g/dL Normal 6.3-8.2 [facility] Comment on above: Performed By: #### H EMDF, CMP3, CRP2 #### [facility] [address] [place] [address] Potassium [Moles/Vol] 3.8 mmol/L Normal 3.5-5.1 [facility] Comment on above: Performed By: #### H EMDF, CMP3, CRP2 #### [facility] [address] [place] [address] Sodium [Moles/Vol] 139 mmol/L Normal 135-145 [facility] Comment on above: Performed By: #### H EMDF, CMP3, CRP2 #### [facility] [address] [place] [address] Albumin [Mass/Vol] 4.3 g/dL Normal 3.5-5.0 [facility] Comment on above: Performed By: #### H EMDF, CMP3, CRP2 #### [facility] [address] [place] [address] Chloride [Moles/Vol] 103 mmol/L Normal 98-107 [facility] Comment on above: Performed By: #### H EMDF, CMP3, CRP2 #### [facility] [address] [place] [address] Hemogram w/ Autodiffon 07-09 Abs Baso Cnt 0.0 10*3/uL Normal 0.0-0.2 [facility] Comment on above: Performed By: #### H EMDF, CMP3, CRP2 #### [facility] [address] [place] [address] Abs Neutrophile Cnt 4.2 10*3/uL Normal 1.8-7.0 [facility] Comment on above: Performed By: #### H EMDF, CMP3, CRP2 #### [facility] [address] [place] [address] Basophils/100 WBC (Bld) 0.5 % Normal 0.0-2.0 [facility] Comment on above: Performed By: #### H EMDF, CMP3, CRP2 #### [facility] [address] [place] [address] Eosinophils (Bld) [#/Vol] 0.1 10*3/uL Normal 0.0-0.5 [facility] Comment on above: Performed By: #### H EMDF, CMP3, CRP2 #### [facility] [address] [place] [address] Eosinophils/100 WBC (Bld) 2.5 % Normal 1.0-6.0 [facility] Comment on above: Performed By: #### H EMDF, CMP3, CRP2 #### [facility] [address] [place] [address] Erythrocyte distribution width (RBC) [Ratio] 13.1 % Normal 11.5-14.5 [facility] Comment on above: Performed By: #### H EMDF, CMP3, CRP2 #### [facility] [address] [place] [address] Granulocytes/100 WBC (Bld) 80.0 % Normal 40.0-80.0 [facility] Comment on above: Performed By: #### H EMDF, CMP3, CRP2 #### [facility] [address] [place] [address] Hematocrit (Bld) [Volume fraction] 39.2 % Normal 35.0-47.0 [facility] Comment on above: Performed By: #### H EMDF, CMP3, CRP2 #### [facility] [address] [place] [address] Hemoglobin (Bld) [Mass/Vol] 13.5 g/dL Normal 11.7-16.0 [facility] Comment on above: Performed By: #### H EMDF, CMP3, CRP2 #### [facility] [address] [place] [address] Lymphocytes (Bld) [#/Vol] 0.5 10*3/uL Low 1.0-4.3 [facility] Comment on above: Performed By: #### H EMDF, CMP3, CRP2 #### [facility] [address] [place] [address] Lymphocytes/100 WBC (Bld) 9.1 % Low 20.0-40.0 [facility] Comment on above: Performed By: #### H EMDF, CMP3, CRP2 #### [facility] [address] [place] [address] MCH (RBC) [Entitic mass] 30.0 pg Normal 26.0-34.0 [facility] Comment on above: Performed By: #### H EMDF, CMP3, CRP2 #### [facility] [address] [place] [address] MCHC (RBC) [Mass/Vol] 34.5 % Normal 32.0-36.0 [facility] Comment on above: Performed By: #### H EMDF, CMP3, CRP2 #### [facility] [address] [place] [address] MCV (RBC) [Entitic vol] 86.9 fL Normal 79.0-98.0 [facility] Comment on above: Performed By: #### H EMDF, CMP3, CRP2 #### [facility] [address] [place] [address] Monocytes (Bld) [#/Vol] 0.4 10*3/uL Normal 0.0-0.8 [facility] Comment on above: Performed By: #### H EMDF, CMP3, CRP2 #### [facility] [address] [place] [address] Monocytes/100 WBC (Bld) 7.9 % Normal 2.0-10.0 [facility] Comment on above: Performed By: #### H EMDF, CMP3, CRP2 #### [facility] [address] [place] [address] Platelet mean volume (Bld) [Entitic vol] 7.5 fL Normal 7.4-10.4 [facility] Comment on above: Performed By: #### H EMDF, CMP3, CRP2 #### [facility] [address] [place] [address] Platelets (Bld) [#/Vol] 188 10*3/uL Normal 140-440 [facility] Comment on above: Performed By: #### H EMDF, CMP3, CRP2 #### [facility] [address] [place] [address] RBC (Bld) [#/Vol] 4.51 10*6/uL Normal 3.80-5.20 [facility] Comment on above: Performed By: #### H EMDF, CMP3, CRP2 #### [facility] [address] [place] [address] WBC (Bld) [#/Vol] 5.3 10*3/uL Normal 3.6-10.7 [facility] Comment on above: Performed By: #### H EMDF, CMP3, CRP2 #### [facility] [address] [place] [address] US THYROID/PARATHYROIDon US THYROID/PARATHYROID Performed at [facility] APPROVED BY: Melani Veronica MD EXAMINATION: THYROID ULTRASOUND HISTORY: Thyroid nodules TECHNIQUE: Songraphy of the thyroid was performed. Images were obtained and stored in a permanent archive. COMPARISON: Thyroid ultrasound from [facility] dated 02/11/2018 RESULT: RIGHT LOBE: 4.8 x 2.1 x 1.7 cm; homogeneous echogenicity, expected vascular flow LEFT LOBE: 4.3 x 0.9 x 1.6 cm; homogeneous echogenicity, expected vascular flow ISTHMUS: 0.2 cm Nodules: The most suspicious thyroid nodules (up to 4) are detailed below: NODULE 1 Location: Right lower pole Size: 2.3x 1.6x 1.7 cm (previously measured 2.1 cm x 1.5 cm x 1.4 cm) Characteristics: Composition: Mixed cystic and solid, 1 point Echogenicity: Hypoechoic, 2 points Shape: [id number], 0 points Margin: Smooth, 0 points Echogenic foci: None, 0 points TI-RADS Category: TI-RADS 3, mildly suspicious Internal vascularity: absent NODULE 2 Location: Left upper pole Size: 0.6x 0.3x 0.5 cm Characteristics: Composition: Solid or almost completely solid, 2 points Echogenicity: Hypoechoic, 2 points Shape: [id number], 0 points Margin: Smooth, 0 points Echogenic foci: None, 0 points TI-RADS Category: TI-RADS 4, moderately suspicious Internal vascularity: absent IMPRESSION: Nodule #1 is located in the upper pole of the right lobe measures 2.3 cm x 1.6 cm x 1.7 cm and is a TI-RADS category 3 nodule. This nodule is unchanged in size from prior thyroid ultrasound. TI-RADS 3 NODULE, MILDLY SUSPICIOUS. FNA OR SPECIALIST REFERRAL IS RECOMMENDED FOR LESIONS GREATER THAN 2.5CM. LESIONS GREATER THAN 1.5CM CAN BE FOLLOWED WITH THYROID ULTRASOUND IN ONE YEAR. Nodule 2 is located in the upper pole of the left lobe and measures 0.6 cm x 0.3 cm x 0.5 cm and is a tiny RADS category 4 nodule. This nodule is unchanged in size from previous thyroid ultrasound TI-RADS 4 NODULE, MODERATELY SUSPICIOUS. FNA OR SPECIALIST REFERRAL IS RECOMMENDED FOR NODULES GREATER THAN 1.5 CM. FOLLOW UP IMAGING IS RECOMMENDED IF GREATER THAN 1 CM. Normal [facility] Vital Signs Date Time Vital Sign Value Performing Clinician Faci re[facility]ay 12-14-2024 13:38-0500 Body height 165.1 cm Greg Shipman MD Work Phone: [facility] 12-14-2024 13:38-0500 Body mass index (BMI) [Ratio] 24.63 kg/m2 Greg Shipman MD Work Phone: [facility] 12-14-2024 13:38-0500 Body weight 67.13 kg Greg Shipman MD Work Phone: [facility] 12-14-2024 13:38-0500 Diastolic blood pressure 85 mm[Hg] Greg Shipman MD Work Phone: [facility] 12-14-2024 13:38-0500 Heart rate 101 /min Greg Shipman MD Work Phone: [facility] 12-14-2024 13:38-0500 Systolic blood pressure 139 mm[Hg] Greg Shipman MD Work Phone: [facility] 08-11-2024 14:51-0400 Body height 165.1 cm Rosalee Weiss MD Work Phone: [facility] 08-11-2024 14:51-0400 Body mass index (BMI) [Ratio] 25.46 kg/m2 Rosalee Weiss MD Work Phone: [facility] 08-11-2024 14:51-0400 Body weight 69.4 kg Rosalee Weiss MD Work Phone: [facility] 08-11-2024 14:51-0400 Diastolic blood pressure 64 mm[Hg] Rosalee Weiss MD Work Phone: [facility] 08-11-2024 14:51-0400 Systolic blood pressure 120 mm[Hg] Rosalee Weiss MD Work Phone: [facility] 06-11-2024 15:39-0400 Body height 170.2 cm Greg Shipman MD Work Phone: [facility] 06-11-2024 15:39-0400 Body mass index (BMI) [Ratio] 24.65 kg/m2 Greg Shipman MD Work Phone: [facility] 06-11-2024 15:39-0400 Body weight 71.4 kg Greg Shipman MD Work Phone: [facility] 06-11-2024 15:39-0400 Diastolic blood pressure 82 mm[Hg] Greg Shipman MD Work Phone: [facility] 06-11-2024 15:39-0400 Heart rate 85 /min Greg Shipman MD Work Phone: [facility] 06-11-2024 15:39-0400 Systolic blood pressure 125 mm[Hg] Greg Shipman MD Work Phone: [facility] 02-17-2024 13:09-0400 Body height 162.6 cm Greg Shipman MD Work Phone: [facility] 10-30-2023 07:52-0500 Body height 162.[address] Montse Almeida Work Phone: [facility] 10-30-2023 07:52-0500 Body mass index (BMI) [Ratio] 23.8 kg/m2 Dr. Montse Almeida Work Phone: [facility] 10-30-2023 07:52-0500 Body temperature 97.4 [degF] Dr. Montse Almeida Work Phone: [facility] 10-30-2023 07:52-0500 Body weight 63.[address] Montse Almeida Work Phone: [facility] 10-30-2023 07:52-0500 Diastolic blood pressure 70 mm[Hg] Dr. Montse Almeida Work Phone: [facility] 10-30-2023 07:52-0500 Heart rate 80 /min Dr. Montse Almeida Work Phone: [facility] 10-30-2023 07:52-0500 Respiratory rate 18 /min Dr. Montse Almeida Work Phone: [facility] 10-30-2023 07:52-0500 SaO2% (BldA) [Mass fraction] 99 % Dr. Montse Almeida Work Phone: [facility] 10-30-2023 07:52-0500 Systolic blood pressure 114 mm[Hg] Dr. Montse Almeida Work Phone: [facility] Encounters Encounter Date Encounter Type Care Provider Facility Start: 04-08-2025 End: 04-08-2025 ambulatory Montse Almeida Facility:[facility] Start: 03-04-2025 End: 03-04-2025 ambulatory Montse Almeida Facility:[facility] Start: 12-14-2024 End: 12-14-2024 Patient encounter procedure Greg Shipman MD Work Phone: [facility] Comment on above: Graves' disease ([facility] priscilla Dx); Thyroid nodule; Polyuria Start: 12-14-2024 End: 12-14-2024 ambulatory YASSIN SHIPMAN [facility] Start: 12-08-2024 ambulatory YASSIN SHIPMAN Facility :[facility] Start: 12-08-2024 End: 12-08-2024 Subsequent hospital visit by physician Us Peguero 1 [facility] Comment on above: Graves' disease [E05 .00] Start: 11-30-2024 End: 12-02-2024 Telephone encounter Greg Shipman MD Work Phone: [facility] Comment on above: Patient Question Procedure (Thyroid u ltrasound) Start: 11-24-2024 End: 11-24-2024 ambulatory [facility] Facility:[facility] Start: 08-11-2024 End: 08-11-2024 ambulatory ROSALEE WEISS Facility:[facility] Start: 08-11-2024 End: 08-11-2024 Patient encounter procedure Rosalee Weiss MD Work Phone: OB/Gynecology Comment on above: Encounter for gyneco logical examination (general) (routine) without abnormal findings (Primary Dx); Screening for cervical cancer; Hirsutism Start: 08-11-2024 End: 08-11-2024 Patient encounter status Rosalee Weiss MD Work Phone: [facility] Start: 07-20-2024 ambulatory [facility] Facility :[facility] Start: 06-12-2024 Orders Only Greg Shipman MD Work Phone: [facility] Comment on above: Hyperthyroidism ([facility] priscilla Dx) Start: 06-11-2024 End: 06-11-2024 Patient encounter procedure Greg Shipman MD Work Phone: [facility] Comment on above: Hyperthyroidism ([facility] priscilla Dx); Graves' disease; Thyroid nodule Start: 06-11-2024 End: 06-11-2024 ambulatory YASSIN SHIPMAN [facility] Start: 03-27-2024 ambulatory YASSIN SHIPMAN Facility :[facility] Start: 03-27-2024 End: 03-27-2024 Subsequent hospital visit by physician [facility] Work Phone: Molecular Imaging Comment on above: Hyperthyroidism [E05 .90] Start: 03-26-2024 ambulatory [facility] Facility :[facility] Start: 03-26-2024 End: 03-26-2024 Subsequent hospital visit by physician [facility] In[facility] Work Phone: Molecular Imaging Comment on above: Hyperthyroidism [E05 .90] Start: 02-18-2024 Telephone encounter Greg mejia MD Work Phone: [facility] Comment on above: Procedure (Thyroid u ptake and scan) Start: 02-17-2024 End: 02-17-2024 ambulatory [facility] Facility[facility] Start: 02-17-2024 End: 02-17-2024 Patient encounter procedure Greg Shipman MD Work Phone: [facility] Comment on above: Hyperthyroidism ([facility] priscilla Dx); Nodular goiter Start: 02-17-2024 End: 02-17-2024 ambulatory [facility] Facility:[facility] Start: 11-12-2023 End: 11-12-[address] Montse Almeida Work Phone: [facility] Work Phone: Start: 11-12-2023 End: 11-12-[address] Montse Almeida Work Phone: [facility], [facility] Work Phone: Start: 10-30-2023 End: 10-30-[address] Montse Almeida Work Phone: [facility] [place] Work Phone: Start: 03-17-2019 End: 03-17-2019 Patient encounter procedure MELANI DUONG Facility:[facility] Start: 03-03-2019 End: 03-04-2019 Patient encounter procedure MELANI DUONG Facility:[facility] Start: 06-12-2018 Patient encounter procedure MELANI DUONG Facility:[facility] Start: 06-02-2018 End: 06-02-2018 Patient encounter procedure MELANI DUONG Facility:[facility] Start: 04-29-2018 Patient encounter procedure MELANI DUONG Facility:[facility] Start: 04-15-2018 End: 04-15-2018 Patient encounter procedure MELANI DUONG Facility:[facility] Procedures Date Procedure Procedure Detail Performing Clinician Start: 03-27-2024 Thyroid uptake w/blo od flow sngle/mult humberto joe Greg Shipman MD Work Phone: Start: 11-12-2023 US scan of thyroid Dr. Montse Almeida Work Phone: Plan of Treatment Date Care Activity Detail Author Start: 06-19-2029 Urine microalbumin profile DTaP,Tdap,Td Vaccine (8 - Td or Tdap) [facility] Start: 08-11-2027 Screening for malignant neoplasm of cervix Cervical Cancer Screening [facility] Start: 12-14-2025 End: 12-14-2025 Patient encounter procedure 12/14/2025 11:00 AM EST Office Visit [facility] General Endocrinology [address] [place] [address] Greg Shipman MD [address] [place], [place] [id number] 1 year f/u [facility] General Endocrinology Comment on above: 1 year f/u Start: 08-13-2025 End: 08-13-2025 Patient encounter procedure 08/13/2025 2:20 PM EDT Office Visit OB/Gynecology [address] [place] [id number] Rosalee Weiss MD [address] [place] [address] Annual OB/Gynecology Comment on above: Annual Start: 12-14-2024 End: 03-15-2025 Comprehensive metabolic 2000 panel - Serum or Plasma [facility] Work Phone: Comment on above: Expected: 12/14/2024, Expires: Start: 12-14-2024 End: 03-15-2025 Hemoglobin A1c in Blood [facility] Comment on above: Expected: 12/14/2024, Expires: Start: 12-14-2024 End: 12-14-2024 Patient encounter procedure 12/14/2024 1:40 PM EST Office Visit [facility] General Endocrinology [address] [place] [address] Greg Shipman MD [facility] [place], [place] [address] [address] [facility] Comment on above: 6 months Start: 12-07-2024 End: 12-07-2024 Patient encounter procedure 12/07/2024 8:45 AM EST Appointment [facility] [address] [place] [address] Graves' disease [E05.00]; Thyroid nodule [E04.1] [facility] Comment on above: Graves' disease [E05.00]; Thyroid nodule [E04.1] Start: 11-30-2024 End: 12-30-2025 US Thyroid gland US THYROID/PARATHYROID Radiology Routine Graves' disease Thyroid nodule Expected: 11/30/2024, Expires: 12/30/2025 [facility] Work Phone: Comment on above: Expected: 11/30/2024, Expires: Start: 11-24-2024 End: 11-24-2024 ambulatory 11/24/2024 10:30 AM EST Results Only [facility] [address] [place] [address] [facility] Start: 11-18-2024 End: 12-09-2024 Thyrotropin [Units/volume] in Serum or Plasma THYROID STIMULATING HORMONE Lab Routine Hyperthyroidism Expected: 11/18/2024 (Approximate), Expires: 12/09/2024 [facility] Work Phone: Comment on above: Expected: 11/18/2024 (Approximate), Expi res: 12/09/2024 Start: 11-18-2024 End: 02-17-2025 Thyroxine (T4) [Mass/volume] in Serum or Plasma T4/THYROXINE Lab Routine Hyperthyroidism Expected: 11/18/2024, Expires: 02/17/[address] [facility] Comment on above: Expected: 11/18/2024, Expires: Start: 11-18-2024 End: 12-09-2024 Thyroxine (T4) free [Mass/volume] in Serum or Plasma T4 FREE/FREE THYROXINE Lab Routine Hyperthyroidism Expected: 11/18/2024 (Approximate), Expires: 12/09/[address] [facility] Comment on above: Expected: 11/18/2024 (Approximate), Expi res: 12/09/2024 Start: 08-11-2024 End: 08-11-2024 Patient encounter procedure 08/11/2024 2:40 PM EDT Office Visit OB/Gynecology [address] [place], [place] [id number] Rosalee Weiss MD [address] [place], [place] [id number] annual OB/Gynecology Comment on above: annual Start: 08-11-2024 End: 11-10-2024 Testosterone [Mass/volume] in Serum or Plasma [facility] Work Phone: Comment on above: Expected: 08/11/2024, Expires: Start: 07-19-2024 Covid-19 Vaccine () Covid-19 Vaccine () [facility] Start: 07-19-2024 Influenza vaccination [facility] Start: 06-11-2024 End: 06-11-2024 Patient encounter procedure 06/11/2024 3:40 PM EDT Office Visit [facility] [address] [place] [address] Greg Shipman MD [facility] [place] [address] thyroid [facility] General Endocrinology Comment on above: thyroid Start: 03-27-2024 End: 03-27-2024 Patient encounter procedure 03/27/2024 8:00 AM EDT Appointment [facility] [address] [place] [address] Hyperthyroidism [E05.90] [facility] Comment on above: Hyperthyroidism [E05.90] Start: 02-17-2024 End: 05-18-2024 THYROID STIMULATING IMMUNOGLOBULIN BLOOD [facility] Work Phone: Comment on above: Expected: 02/17/2024, Expires: Start: 11-18-2023 Behavioral Health Screening Behavioral Health Screening [facility] Start: 11-18-2023 Depression Assessment Depression Assessment [facility] Start: 07-19-2023 Covid-19 Vaccine ( season) Covid-19 Vaccine () [facility] Start: 2020 Screening for malignant neoplasm of cervix [facility] Start: 2017 Annual PCP Team Chronic Disease Visit Annual PCP Team Chronic Disease Visit [facility] Start: 2017 Anxiety Screening Anxiety Screening [facility] Start: 2017 Depression Screening Depression Screening [facility] Start: 2017 Hepatitis C screening Hepatitis C Screening [facility] Start: 2017 HIV screening HIV Screening [facility] Start: 2015 Meningococcal B Vaccine: Consider Based On Risk (1 of 2 - Patient Seeks Protection) Meningococcal B Vaccine: Consider Based On Risk (1 of 2 - Patient Seeks Protection) [facility] Start: 2013 Peds To Adult Transition Annual Assessment Peds To Adult Transition Annual Assessment [facility] Start: 2011 Peds To Adult Transition Initial Discussion Peds To Adult Transition Initial Discussion [facility] End: 03-18-2025 NM Thyroid gland Views and Views uptake NM THY UPTAKE AND SCAN Radiology Routine Hyperthyroidism 1 Occurrences starting 02/17/2024 until 03/18/2025 [facility] Work Phone: Comment on above: 1 Occurrences starting 02/17/2024 until 03/18/2025 End: 03-19-2025 NM Thyroid gland Views and Views uptake NM THY UPTAKE AND SCAN Radiology Routine Hyperthyroidism 1 Occurrences starting 02/18/2024 until 03/19/2025 [facility] Work Phone: Comment on above: 1 Occurrences starting 02/18/2024 until 03/19/2025 NM Thyroid gland Vie ws and Views uptake NM THY UPT[employer]KE AND SCAN Radiology Routine Hyperthyroidism 03/26/2024 8:16 AM EDT [facility] Work Phone: PAP TEST PAP TEST Lab Rou real Encounter for gynecological examination (general) (routine) without abnormal findings Screening for cervical cancer 08/11/2024 3:49 PM EDT [facility] End: 12-08-2024 US Thyroid gland [facility] Work Phone: Comment on above: 1 Occurrences starting 12/08/2024 until 12/08/2024 [facility] Immunizations Immunization Date Immunization Notes Care Provider [facility] 10-25-2023 Influenza, injectabl e, Madin Laverne Canine Kidney, preservative free, quadrivalent Rosalee Weiss MD Work Phone: [facility] 10-25-2023 influenza virus vacc ine, unspecified formulation Greg Shipman MD Work Phone: [facility] 10-18-2022 Seasonal, quadrivale nt, recombinant, injectable influenza vaccine, preservative free Rosalee Weiss MD Work Phone: [facility] 10-27-2021 hepatitis B vaccine, adult dosage Dr. Montse Almeida Work Phone: [facility] 04-21-2021 hepatitis B vaccine, adult dosage Dr. Montse Almeida Work Phone: [facility] 02-27-2021 hepatitis B vaccine, adult dosage Dr. Montse Almeida Work Phone: [facility] 08-18-2019 influenza, injectabl e, quadrivalent, preservative free Rosalee Weiss MD Work Phone: [facility] 06-19-2019 tetanus toxoid, redu carlo diphtheria toxoid, and acellular pertussis vaccine, adsorbed Rosalee Weiss MD Work Phone: [facility] 07-09-2017 meningococcal polysaccharide (groups A, C, Y and W-135) diphtheria toxoid conjugate vaccine (MCV4P) Rosalee Weiss MD Work Phone: [facility] 09-10-2014 influenza, injectabl e, quadrivalent, preservative free Rosalee Weiss MD Work Phone: [facility] 06-02-2014 hepatitis A vaccine, pediatric/adolescent dosage, 2 dose schedule Rosalee Weiss MD Work Phone: [facility] 06-02-2014 human papilloma viru s vaccine, quadrivalent Rosalee Weiss MD Work Phone: [facility] 10-22-2013 human papilloma viru s vaccine, quadrivalent Rosalee Weiss MD Work Phone: [facility] 06-01-2013 hepatitis A vaccine, pediatric/adolescent dosage, 2 dose schedule Rosalee Weiss MD Work Phone: [facility] 06-01-2013 human papilloma viru s vaccine, quadrivalent Rosalee Weiss MD Work Phone: [facility] 08-30-2012 influenza, seasonal, injectable Rosalee Weiss MD Work Phone: [facility] 08-10-2011 influenza virus vacc ine, whole virus Rosalee Weiss MD Work Phone: [facility] 06-20-2011 meningococcal polysaccharide (groups A, C, Y and W-135) diphtheria toxoid conjugate vaccine (MCV4P) Rosalee Weiss MD Work Phone: [facility] 09-09-2010 influenza virus vacc ine, whole virus Rosalee Weiss MD Work Phone: [facility] 09-09-2010 tetanus toxoid, redu carlo diphtheria toxoid, and acellular pertussis vaccine, adsorbed Rosalee Weiss MD Work Phone: [facility] 10-06-2009 novel influenza-H1N1 -09, preservative-free, injectable Rosalee Weiss MD Work Phone: [facility] 08-13-2009 influenza virus vacc ine, whole virus Rosalee Weiss MD Work Phone: [facility] 09-02-2008 influenza virus vacc ine, whole virus Rosalee Weiss MD Work Phone: [facility] 09-20-2007 influenza virus vacc ine, whole virus Rosalee Weiss MD Work Phone: [facility] 09-23-2006 influenza virus vacc ine, whole virus Rosalee Weiss MD Work Phone: [facility] 09-17-2005 influenza virus vacc ine, whole virus Rosalee Weiss MD Work Phone: [facility] 09-28-2004 influenza virus vacc ine, whole virus Rosalee Weiss MD Work Phone: [facility] 08-16-2004 diphtheria, tetanus toxoids and acellular pertussis vaccine, unspecified formulation Rosalee Weiss MD Work Phone: [facility] 08-16-2004 measles, mumps and rubella virus vaccine Rosalee Weiss MD Work Phone: [facility] 08-16-2004 poliovirus vaccine, inactivated Rosalee Weiss MD Work Phone: [facility] 09-07-2003 influenza virus vacc ine, whole virus Rosalee Weiss MD Work Phone: [facility] 08-28-2002 influenza virus vacc ine, whole virus Rosalee Weiss MD Work Phone: [facility] 10-20-2001 influenza virus vacc ine, whole virus Rosalee Weiss MD Work Phone: [facility] 11-25-2000 diphtheria, tetanus toxoids and acellular pertussis vaccine, unspecified formulation Rosalee Weiss MD Work Phone: [facility] 11-25-2000 haemophilus influenz ae type b vaccine, PRP-T conjugate Rosalee Weiss MD Work Phone: [facility] 11-06-2000 influenza virus vacc ine, whole virus Rosalee Weiss MD Work Phone: [facility] 10-07-2000 influenza virus vacc ine, whole virus Rosalee Weiss MD Work Phone: [facility] 09-19-2000 hepatitis B vaccine, pediatric or pediatric/adolescent dosage Rosalee Weiss MD Work Phone: [facility] 09-19-2000 measles, mumps and rubella virus vaccine Rosalee Weiss MD Work Phone: [facility] 04-18-2000 diphtheria, tetanus toxoids and acellular pertussis vaccine, unspecified formulation Rosalee Weiss MD Work Phone: [facility] 04-18-2000 haemophilus influenz ae type b vaccine, PRP-OMP conjugate Rosalee Weiss MD Work Phone: [facility] 04-18-2000 poliovirus vaccine, inactivated Rosalee Weiss MD Work Phone: [facility] 02-22-2000 diphtheria, tetanus toxoids and acellular pertussis vaccine, unspecified formulation Rosalee Weiss MD Work Phone: [facility] 02-22-2000 haemophilus influenz ae type b conjugate and Hepatitis B vaccine Rosalee Weiss MD Work Phone: [facility] 02-22-2000 poliovirus vaccine, inactivated Rosalee Weiss MD Work Phone: [facility] 1999 diphtheria, tetanus toxoids and acellular pertussis vaccine, unspecified formulation Rosalee Weiss MD Work Phone: [facility] 1999 haemophilus influenz ae type b conjugate and Hepatitis B vaccine Rosalee Weiss MD Work Phone: [facility] 1999 poliovirus vaccine, inactivated Rosalee Weiss MD Work Phone: [facility] Payers Date Payer Category Payer Self-pay [id number] 2023 Private Health Insurance [id number] 2018 Private Health Insurance [id number] 2018 Private Health Insurance [id number] 2005 Unknown [id number] 1999 Unknown [id number] 1999 Unknown [id number] [id number] 1999 Unknown [id number] 2.16.8 [id number] 1999 Unknown [id number] 2.16.8 [id number] 1999 Unknown [id number] 2.16.8 [id number] 1999 Unknown [id number] 2.16.8 [id number] Unknown [id number] 2.16.8 [id number] Unknown [id number] 2.16.8 [id number] Unknown [id number] 2.16.8 [id number] Social History Date Type Detail Facility Start[facility] Start: 2000 [facility] Assigned At Female [facility] Start: 11-19-2023 [facility] tobacco [facility] Start: 11-19-2023 Tobacco use and exposure Smokeless tobacco non-user [facility] Start: 02-17-2024 End: 12-14-2024 Alcohol intake Current non-drinker of alcohol (finding) [facility] Start: 11-19-2023 End: 02-17-2024 History of Social function [facility] Start: 11-19-2023 End: 02-17-2024 Tobacco use panel [facility] National Score (1-100), lower number is lower risk [address] [facility] Start: 2000 Sex Assigned At Not on file [facility] Clinical Notes 02-17-2024 to 12-14-2024 Greg Shipman MD - 12/14/2024 1:49 PM Bossman Linton, RT(R) - 12/08/2024 8:45 AM ESTTelephone Encounter - Majo Cerda PSS - 12/02/2024 1:11 PM Rosalee Gilliam MD - 08/11/2024 2:41 PM EDT Note Date & Type Note Facility 12-14-2024 Note HNO ID: [id number] Author: GREG SHIPMAN MD Service: ? Author Type: Physician Type: Progress Notes Filed: 12/14/2024 14:50 Note Text: PCP: Montse Almeida MD. Subjective The history is provided by the patient. Mojgan Alarcon is a 24 year old White female with PMHx of asthma who presented to the endocrine clinic for hyperthyroidism evaluation and management History of present illness Initial History: (02/17/24) The patient has been followed by endocrine surgery for stable thyroid nodularity with dominant 2.1 cm in the right side. Nodule was first noted around 2017 by the patient which was evaluated by biopsy and came back benign. The patient has been feeling off lately. She has noticed fine tremor mostly at work for the past couple months. 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 Interval History: Patient reports feeling okay overall. She has been noticing drinking more water especially after eating associated with frequent urination. She wakes up about 1-2 times at night to urinate Review of Systems Cardiovascular: Negative for palpitations. Genitourinary: Positive for frequency. Neurological: Negative for tremors. Endo/Heme/Allergies: Positive for polydipsia. 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 fluticasone (FLONASE) 50 mcg/actuation nasal spray instill 1 spray into each nostril one to two times a day ELURYNG 0.12-0.015 mg/24 hr vaginal ring INSERT RING VAGINALLY, WEAR FOR 3 WEEKS, AND REMOVE FOR [address] NEW RING AND REPEAT. azelastine HCl (AZELASTINE NASAL) Use in the nose. montelukast (SINGULAIR) 10 mg tablet Take 10 mg by mouth once daily. 10 fluticasone-vilanterol (BREO ELLIPTA) 200-25 mcg/dose inhaler ALBUTEROL SULFATE (PROAIR HFA INHALATION) Inhale as instructed. Levalbuterol HCl (XOPENEX) 1.25 mg/0.5 mL nebulizer solution Use 1 Ampule via nebulizer every 4 hours as needed. ipratropium (ATROVENT) 0.02 % nebulizer solution Use 0.5 mg via nebulizer four times daily. No current facility-administered medications for this visit. Objective BP 139/85 Pulse 101 Ht 5' 5 (1.65m) Wt 148 lb (67.1kg) BMI 24.63 kg/(m2). Physical examination Physical Exam Vitals and nursing note reviewed. Constitutional: General: She is not in acute distress. Neck: Thyroid: No thyromegaly. Cardiovascular: Rate and Rhythm: Normal rate and regular rhythm. Heart sounds: Normal heart sounds. Pulmonary: Effort: No respiratory distress. Breath sounds: Normal breath sounds. Neurological: General: No focal deficit present. Mental Status: She is alert. Psychiatric: Mood and Affect: Affect normal. Labs and imaging data: Reviewed Latest Ref Rng 11/19/2023 02/17/2024 TSI Qualitative Negative Positive ! TSI <0.55 IU/L 1.56 (H) TSH 0.270 - 4.200 mIU/L <0.005 (L) 0.006 (L) THYROID PEROXIDASE ANTIBODY <5.6 IU/mL 7.9 (H) Free T4 0.9 - 1.7 ng/dL 1.4 T3 79 - 165 ng/dL 169 (H) Latest Ref Rng 11/24/2024 TSH 0.270 - 4.200 mIU/L 0.525 Free T4 0.9 - 1.7 ng/dL 1.1 T4 5.5 - 10.2 ug/dL 9.1 Thyroid ultrasound on 03/03/2019 Multinodular thyroid gland as described above. Findings are similar to comparison study 02/11/2018. The right thyroid lobe is measured 4.6 cm longitudinal by 2 cm AP by 1.5 cm transverse. There is redemonstration of a mixed solid cystic hypoechoic nodule posterior lower lobe measured 2.1 x 1.7 x 1.5 cm in size. This compares to a previous measurement of 2.3 x 1.6 x 1.7 cm. There are two additional solid hypoechoic nodules within the lobe measuring 0.3 cm and 0.4 cm in size. The left thyroid lobe is measured 3.7 x 1.1 x 1.3 cm in size. There is a solid hypoechoic nodule redemonstrated within the posterior upper lobe measured 0.5 x 0.4 x 0.4 cm in size. This compares to previous measurement of 0.6 x 0.3 x 0.5 cm. The isthmus is measured at 0.2 cm in thickness. Thyroid uptake and scan on 03/27/2024 IMPRESSION: 1. MILDLY INCREASED I-123 UPTAKE VALUES. 2. SCAN: MILDLY HETEROGENEOUS DIFFUSE UPTAKE IN THE THYROID RESULT: The I-123 uptake is 18.8% at 5 hours and 30.7% at (more content not included)... [facility] 12-14-2024 History of Presen t illness Narrative PCP: Montse Almeida MD. Subjective The history is provided by the patient. Mojgan Alarcon is a 24 year old White female with PMHx of asthma who presented to the endocrine clinic for hyperthyroidism evaluation and management History of present illness Initial History: (02/17/24) The patient has been followed by endocrine surgery for stable thyroid nodularity with dominant 2.1 cm in the right side. Nodule was first noted around 2018 by the patient which was evaluated by biopsy and came back benign. The patient has been feeling off lately. She has noticed fine tremor mostly at work for the past couple months. 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 Interval History: Patient reports feeling okay overall. She has been noticing drinking more water especially after eating associated with frequent urination. She wakes up about 1-2 times at night to urinate Review of Systems Cardiovascular: Negative for palpitations. Genitourinary: Positive for frequency. Neurological: Negative for tremors. Endo/Heme/Allergies: Positive for polydipsia. 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 fluticasone (FLONASE) 50 mcg/actuation nasal spray instill 1 spray into each nostril one to two times a day ELURYNG 0.12-0.015 mg/24 hr vaginal ring INSERT RING VAGINALLY, WEAR FOR 3 WEEKS, AND REMOVE FOR [address] NEW RING AND REPEAT. azelastine HCl (AZELASTINE NASAL) Use in the nose. montelukast (SINGULAIR) 10 mg tablet Take 10 mg by mouth once daily. 10 fluticasone-vilanterol (BREO ELLIPTA) 200-25 mcg/dose inhaler ALBUTEROL SULFATE (PROAIR HFA INHALATION) Inhale as instructed. Levalbuterol HCl (XOPENEX) 1.25 mg/0.5 mL nebulizer solution Use 1 Ampule via nebulizer every 4 hours as needed. ipratropium (ATROVENT) 0.02 % nebulizer solution Use 0.5 mg via nebulizer four times daily. No current facility-administered medications for this visit. Objective BP 139/85 Pulse 101 Ht 5' 5 (1.65m) Wt 148 lb (67.1kg) BMI 24.63 kg/(m^2). Physical examination Physical Exam Vitals and nursing note reviewed. Constitutional: General: She is not in acute distress. Neck: Thyroid: No thyromegaly. Cardiovascular: Rate and Rhythm: Normal rate and regular rhythm. Heart sounds: Normal heart sounds. Pulmonary: Effort: No respiratory distress. Breath sounds: Normal breath sounds. Neurological: General: No focal deficit present. Mental Status: She is alert. Psychiatric: Mood and Affect: Affect normal. Labs and imaging data: Reviewed Latest Ref Rng 11/19/2023 02/17/2024 TSI Qualitative Negative Positive ! TSI <0.55 IU/L 1.56 (H) TSH 0.270 - 4.200 mIU/L <0.005 (L) 0.006 (L) THYROID PEROXIDASE ANTIBODY <5.6 IU/mL 7.9 (H) Free T4 0.9 - 1.7 ng/dL 1.4 T3 79 - 165 ng/dL 169 (H) Latest Ref Rng 11/24/2024 TSH 0.270 - 4.200 mIU/L 0.525 Free T4 0.9 - 1.7 ng/dL 1.1 T4 5.5 - 10.2 ug/dL 9.1 Thyroid ultrasound on 03/03/2019 Multinodular thyroid gland as described above. Findings are similar to comparison study 02/11/2018. The right thyroid lobe is measured 4.6 cm longitudinal by 2 cm AP by 1.5 cm transverse. There is redemonstration of a mixed solid cystic hypoechoic nodule posterior lower lobe measured 2.1 x 1.7 x 1.5 cm in size. This compares to a previous measurement of 2.3 x 1.6 x 1.7 cm. There are two additional solid hypoechoic nodules within the lobe measuring 0.3 cm and 0.4 cm in size. The left thyroid lobe is measured 3.7 x 1.1 x 1.3 cm in size. There is a solid hypoechoic nodule redemonstrated within the posterior upper lobe measured 0.5 x 0.4 x 0.4 cm in size. This compares to previous measurement of 0.6 x 0.3 x 0.5 cm. The isthmus is measured at 0.2 cm in thickness. Thyroid uptake and scan on 03/27/2024 IMPRESSION: 1. MILDLY INCREASED I-123 UPTAKE VALUES. 2. SCAN: MILDLY HETEROGENEOUS DIFFUSE UPTAKE IN THE THYROID RESULT: The I-123 uptake is 18.8% at 5 hours and 30.7% at 24 hours ( normal 10-30% at 24 hours). There is mildly heterogeneous with diffuse uptake seen in both lobes of the thyroid. Previous medical records: Reviewed Assessment & Plan Assessment: Impression: (Some elements copied from my notes 06/11/2024, which have been updated where appropriate, and all reflect current medical decision making from today, 12/14/2024) Mojgan Hu was seen today for gynecomastia and follow up. Diagnoses and all orders for this visit: Graves' disease Thyroid nodule Polyuria - COMPREHENSIVE METABOLIC PANEL; Future - HEMOGLOBIN A1C; Future Plan: Subclinical hyperthyroidism due to Graves' disease on remission, currently euthyroid Instructed to contact our office if any symptoms suggestive of hyperthyroidism Monitor thyroid function test annually The most recent surveillance ultrasound on 12/08/2024 revealed multiple bilateral nodules with dominant right nodule measuring 2.3 cm (TI-RADS 4: Hypoechoic) which has not changed since the time of the biopsy in 2018. Repeat thyroid ultrasound in 2-3 years The patient has symptoms suggestive of polyuria and polydipsia, obtain CMP and A1c for further evaluation I discussed the plan of care with the patient in details including different treatment options and side effects of medications prescribed in this visit. Complications of untreated or uncontrolled disease were also discussed. Patient expressed understanding and agreement. Return in about 1 year (around 12/14/2025). Greg Shipman MD [facility] General Endocrinology - [address], [address] [place] [address] This note was partially generated using [employer] voice recognition system, and there may be some incorrect words, spellings, and punctuation that were not intended as it appear in the note. documented in this encounter [facility] 12-08-2024 History of Presen t illness Narrative Radiology Service Progress Note PATIENT NAME: Mojgan Alarcon DATE OF SERVICE: December 08, 2024 TIME: 9:08 AM PATIENT IDENTITY VERIFICATION COMPLETED USING TWO (2) IDENTIFIERS: Name and Date of confirmed by patient verbally. FALL SCREENING: Has the patient had 2 falls in the last year or 1 fall with injury or currently using an Ambulatory Assistive Device (Walker, Cane, Wheelchair, Crutches, etc.)? No PATIENT GENDER DATA: Assigned female at . status: : No status: NO. PATIENT RELEVANT IMPLANT DATA REVIEWED: Not Applicable PATIENT PRESENTS WITH AN IMPLANTABLE OR ATTACHED QUALITY ANALYST/TECHNICAL WRITER: No RADIOLOGY DEPARTMENT: Ultrasound PERIPHERAL IV DATA: Not applicable SIGNED BY: RT Dereje(Emerald) December 08, 2024 9:08 AM documented in this encounter [facility] 12-08-2024 Note HNO ID: [id number] Author: BOSSMAN PARR RT(R) Service: Radiology Author Type: Technologist Type: Progress Notes Filed: 12/08/2024 09:09 Note Text: Radiology Service Progress Note PATIENT NAME: Mojgan Alarcon DATE OF SERVICE: December 08, 2024 TIME: 9:08 AM PATIENT IDENTITY VERIFICATION COMPLETED USING TWO (2) IDENTIFIERS: Name and Date of confirmed by patient verbally. FALL SCREENING: Has the patient had 2 falls in the last year or 1 fall with injury or currently using an Ambulatory Assistive Device (Walker, Cane, Wheelchair, Crutches, etc.)? No PATIENT GENDER DATA: Assigned female at . status: : No status: NO. PATIENT RELEVANT IMPLANT DATA REVIEWED: Not Applicable PATIENT PRESENTS WITH AN IMPLANTABLE OR ATTACHED QUALITY ANALYST/TECHNICAL WRITER: No RADIOLOGY DEPARTMENT: Ultrasound PERIPHERAL IV DATA: Not applicable SIGNED BY: BLANCA Reyez) December 08, 2024 9:08 AM [facility] 12-02-2024 Telephone encounter Note Referral Coordination Patient scheduled for:[place] Location:[place] Date: 12-07-23 Time:8:45 Prep for test:none Patient informed: spoke to patient and she voiced understanding , morning till 11 [place] JAMES Lu December 02, 2024 1:[address] [facility] 12-02-2024 Miscellaneous Notes Referral Coordination Patient scheduled for:[place] Location:[place] Date: 12-07-23 Time:8:45 Prep for test:none Patient informed: spoke to patient and she voiced understanding , morning till 11 [place] JAMES Lu December 02, 2024 1:13 PM Please schedule thyroid ultrasound documented in this encounter [facility] 11-30-2024 Telephone encounter Note Please schedule thyroid ultrasound [facility] 11-30-2024 Telephone encounter Note Patient called in and said she has an appointment on the , she is questioning whether she should get the thyroid ultrasound done here or elsewhere. Gabriel Dyer LPN November 30, 2024 1:[address] [facility] 11-30-2024 Miscellaneous Notes Patient called in and said she has an appointment on the , she is questioning whether she should get the thyroid ultrasound done here or elsewhere. Gabriel Dyer LPN November 30, 2024 1:26 PM documented in this encounter [facility] 08-11-2024 Note HNO ID: [id number] Author: ROSALEE WEISS MD Service: ? Author Type: Physician Type: Progress Notes Filed: 08/11/2024 15:30 Note Text: Mojgan Hu is a 23 year old who presents for an annual gynecologic exam without complaints. Wonders about PCOs and OCPs Menses: cycles every 28 days and 3-4 days of flow. 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 No bloating, early satiety, indigestion, or increased flatulence. Bladder: No dysuria, gross hematuria, urinary frequency, urinary urgency, or incontinence. Breast: No breast lumps, nipple d/c, overlying skin changes, redness or skin retraction. Allergies and current medication updated:Yes SENSITIVE EXAM: The sensitive examination was discussed with the Patient or Patient's Authorized Associate Buyer. As applicable, any other physician, advance practice provider, medical student, or other health professional student that will be observing or involved in the sensitive examination for educational or training purposes was discussed with the Patient or Authorized Associate Buyer. The Patient or Authorized Associate Buyer has agreed to proceed with the sensitive examination. (Sensitive examination includes inspection and/or palpation of the breasts, pelvis, prostate and anorectal regions). EXAM: BP 120/64 Ht 5' 5 (1.65m) Wt 153 lb (69.4kg) LMP 07/24/2024 BMI 25.46 kg/(m2). GENERAL: pleasant, female in no apparent distress HEENT: Normocephalic, atraumatic, mucus membranes moist, and no lesions NECK: Supple, full range of motion, no adenopathy, and thyroid normal DERMATOLOGY: Normal, without lesions, non-icteric, and non-hirsute BREAST: soft, non-tender, symmetric, no dominant mass, normal nipple-areolar complex, no lymphadenopathy, and no nipple discharge CHEST: Normal inspiratory effort ABDOMEN: soft, non-tender, and no masses PELVIC: external genitalia normal, normal Bartholin's glands, urethra, [place]'s glands, no vulvar lesions, no cervical lesions, good vaginal support, physiologic discharge present, normal appearing perineal body and perianal region BIMANUAL: uterus normal size, shape and consistency, no adnexal masses, and non-tender RECTOVAGINAL: deferred. NEURO: alert and oriented x3,exam grossly non-focal EXTREMITIES: normal ASSESSMENT/PLAN: 1) Health maintenance: Pap done with HPV. Mammogram starting age 40. 2) Contraception: nuvaring. Contraceptive options reviewed and information provided. 3) STD screening: Declined STD check. 4) Follow up one year or sooner as needed consider inositol and no added sugar option for PCOS reviewed vs cyclic provera and spironolactone. She will continue nuvaring for now and can use continously if desires Rosalee Weiss MD [facility] 08-11-2024 History of Presen t illness Narrative Mojgan Hu is a 23 year old who presents for an annual gynecologic exam without complaints. Wonders about PCOs and OCPs Menses: cycles every 28 days and 3-4 days of flow. 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 No bloating, early satiety, indigestion, or increased flatulence. Bladder: No dysuria, gross hematuria, urinary frequency, urinary urgency, or incontinence. Breast: No breast lumps, nipple d/c, overlying skin changes, redness or skin retraction. Allergies and current medication updated:Yes SENSITIVE EXAM: The sensitive examination was discussed with the Patient or Patient's Authorized Associate Buyer. As applicable, any other physician, advance practice provider, medical student, or other health professional student that will be observing or involved in the sensitive examination for educational or training purposes was discussed with the Patient or Authorized Associate Buyer. The Patient or Authorized Associate Buyer has agreed to proceed with the sensitive examination. (Sensitive examination includes inspection and/or palpation of the breasts, pelvis, prostate and anorectal regions). EXAM: BP 120/64 Ht 5' 5 (1.65m) Wt 153 lb (69.4kg) LMP 07/24/2024 BMI 25.46 kg/(m^2). GENERAL: pleasant, female in no apparent distress HEENT: Normocephalic, atraumatic, mucus membranes moist, and no lesions NECK: Supple, full range of motion, no adenopathy, and thyroid normal DERMATOLOGY: Normal, without lesions, non-icteric, and non-hirsute BREAST: soft, non-tender, symmetric, no dominant mass, normal nipple-areolar complex, no lymphadenopathy, and no nipple discharge CHEST: Normal inspiratory effort ABDOMEN: soft, non-tender, and no masses PELVIC: external genitalia normal, normal Bartholin's glands, urethra, [place]'s glands, no vulvar lesions, no cervical lesions, good vaginal support, physiologic discharge present, normal appearing perineal body and perianal region BIMANUAL: uterus normal size, shape and consistency, no adnexal masses, and non-tender RECTOVAGINAL: deferred. NEURO: alert and oriented x3,exam grossly non-focal EXTREMITIES: normal ASSESSMENT/PLAN: 1) Health maintenance: Pap done with HPV. Mammogram starting age 40. 2) Contraception: nuvaring. Contraceptive options reviewed and information provided. 3) STD screening: Declined STD check. 4) Follow up one year or sooner as needed consider inositol and no added sugar option for PCOS reviewed vs cyclic provera and spironolactone. She will continue nuvaring for now and can use continously if desires Rosalee Weiss MD documented in this encounter [facility] 06-11-2024 Note HNO ID: [id number] Author: GREG SHIPMAN MD Service: ? Author Type: Physician Type: Progress Notes Filed: 06/11/2024 16:31 Note Text: PCP: Montse Almeida MD. Subjective The history is provided by the patient. Mojgan Alarcon is a 23 year old White female with PMHx of asthma who presented to the endocrine clinic for hyperthyroidism evaluation and management History of present illness Initial History: (02/17/24) The patient has been followed by endocrine surgery for stable thyroid nodularity with dominant 2.1 cm in the right side. Nodule was first noted around 2017 by the patient which was evaluated by biopsy and came back benign. The patient has been feeling off lately. She has noticed fine tremor mostly at work for the past couple months. 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 Interval History: Patient reports feeling okay overall. She has been noticing mild symptoms of palpitations and tremor but has not been interfering with her life her job Review of Systems Cardiovascular: Positive for palpitations. Neurological: Positive for tremors. HISTORY REVIEWED (electronic chart updated): PAST MEDICAL HISTORY Diagnosis Date Asthma PCOS (polycystic ovarian syndrome) PAST SURGICAL HISTORY Procedure Laterality Date PAST SURGICAL HISTORY OF wisdom teeth removal No family history on file. Social History Tobacco Use Smoking status: Never Smokeless tobacco: Never Substance Use Topics Alcohol use: No Drug use: No Current Outpatient Medications Medication Sig Dispense Refill fexofenadine (CHRISTINE) 180 mg tablet Take 1 tablet by mouth once daily. fluticasone (FLONASE) 50 mcg/actuation nasal spray instill 1 spray into each nostril one to two times a day ELURYNG 0.12-0.015 mg/24 hr vaginal ring INSERT RING VAGINALLY, WEAR FOR 3 WEEKS, AND REMOVE FOR [address] NEW RING AND REPEAT. azelastine HCl (AZELASTINE NASAL) Use in the nose. montelukast (SINGULAIR) 10 mg tablet Take 10 mg by mouth once daily. 10 fluticasone-vilanterol (BREO ELLIPTA) 200-25 mcg/dose inhaler MOMETASONE FUROATE (NASONEX NASAL) Use in the nose. ALBUTEROL SULFATE (PROAIR HFA INHALATION) Inhale as instructed. Levalbuterol HCl (XOPENEX) 1.25 mg/0.5 mL nebulizer solution Use 1 Ampule via nebulizer every 4 hours as needed. ipratropium (ATROVENT) 0.02 % nebulizer solution Use 0.5 mg via nebulizer four times daily. No current facility-administered medications for this visit. Objective BP 125/82 Pulse 85 Ht 5' 7 (1.70m) Wt 157 lb 6.4 oz (71.4kg) BMI 24.65 kg/(m2). Physical examination Physical Exam Vitals and nursing note reviewed. Constitutional: General: She is not in acute distress. Neck: Thyroid: Thyromegaly present. Cardiovascular: Rate and Rhythm: Normal rate and regular rhythm. Heart sounds: Normal heart sounds. Pulmonary: Effort: No respiratory distress. Breath sounds: Normal breath sounds. Neurological: General: No focal deficit present. Mental Status: She is alert. Psychiatric: Mood and Affect: Affect normal. Labs and imaging data: Reviewed Latest Ref Rng 11/19/2023 02/17/2024 TSI Qualitative Negative Positive ! TSI <0.55 IU/L 1.56 (H) TSH 0.270 - 4.200 mIU/L <0.005 (L) 0.006 (L) THYROID PEROXIDASE ANTIBODY <5.6 IU/mL 7.9 (H) Free T4 0.9 - 1.7 ng/dL 1.4 T3 79 - 165 ng/dL 169 (H) Thyroid ultrasound on 03/03/2019 Multinodular thyroid gland as described above. Findings are similar to comparison study 02/11/2018. The right thyroid lobe is measured 4.6 cm longitudinal by 2 cm AP by 1.5 cm transverse. There is redemonstration of a mixed solid cystic hypoechoic nodule posterior lower lobe measured 2.1 x 1.7 x 1.5 cm in size. This compares to a previous measurement of 2.3 x 1.6 x 1.7 cm. There are two additional solid hypoechoic nodules within the lobe measuring 0.3 cm and 0.4 cm in size. The left thyroid lobe is measured 3.7 x 1.1 x 1.3 cm in size. There is a solid hypoechoic nodule redemonstrated within the posterior upper lobe measured 0.5 x 0.4 x 0.4 cm in size. This compares to previous measurement of 0.6 x 0.3 x 0.5 cm. The isthmus is measured at 0.2 cm in thickness. Thyroid uptake and scan on 03/27/2024 IMPRESSION: 1. MILDLY INCREASED I-123 UPTAKE VALUES. 2. SCAN: MILDLY HETEROGENEOUS DIFFUSE UPTAKE IN THE THYROID RESULT: The I-123 uptake is 18.8% at 5 hours and 30.7% at 24 hours ( normal 10-30% at 24 hours). There is mildly heterogeneous with diffuse uptake seen in both lobes of the thyroid. Previous medical records: Reviewed Assessment AND Plan Assessment: Impression: (Some elements copied from my notes 02/17/2024, which have been updated where appropriate, and all reflect current medical decision making from today, 06/11/2024) Mojgan Hu was seen (more content not included)... [facility] 06-11-2024 History of Presen t illness Narrative PCP: Montse Almeida MD. Subjective The history is provided by the patient. Mojgan Alarcon is a 23 year old White female with PMHx of asthma who presented to the endocrine clinic for hyperthyroidism evaluation and management History of present illness Initial History: (02/17/24) The patient has been followed by endocrine surgery for stable thyroid nodularity with dominant 2.1 cm in the right side. Nodule was first noted around 2017 by the patient which was evaluated by biopsy and came back benign. The patient has been feeling off lately. She has noticed fine tremor mostly at work for the past couple months. 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 Interval History: Patient reports feeling okay overall. She has been noticing mild symptoms of palpitations and tremor but has not been interfering with her life her job Review of Systems Cardiovascular: Positive for palpitations. Neurological: Positive for tremors. HISTORY REVIEWED (electronic chart updated): PAST MEDICAL HISTORY Diagnosis Date Asthma PCOS (polycystic ovarian syndrome) PAST SURGICAL HISTORY Procedure Laterality Date PAST SURGICAL HISTORY OF wisdom teeth removal No family history on file. Social History Tobacco Use Smoking status: Never Smokeless tobacco: Never Substance Use Topics Alcohol use: No Drug use: No Current Outpatient Medications Medication Sig Dispense Refill fexofenadine (CHRISTINE) 180 mg tablet Take 1 tablet by mouth once daily. fluticasone (FLONASE) 50 mcg/actuation nasal spray instill 1 spray into each nostril one to two times a day ELURYNG 0.12-0.015 mg/24 hr vaginal ring INSERT RING VAGINALLY, WEAR FOR 3 WEEKS, AND REMOVE FOR [address] NEW RING AND REPEAT. azelastine HCl (AZELASTINE NASAL) Use in the nose. montelukast (SINGULAIR) 10 mg tablet Take 10 mg by mouth once daily. 10 fluticasone-vilanterol (BREO ELLIPTA) 200-25 mcg/dose inhaler MOMETASONE FUROATE (NASONEX NASAL) Use in the nose. ALBUTEROL SULFATE (PROAIR HFA INHALATION) Inhale as instructed. Levalbuterol HCl (XOPENEX) 1.25 mg/0.5 mL nebulizer solution Use 1 Ampule via nebulizer every 4 hours as needed. ipratropium (ATROVENT) 0.02 % nebulizer solution Use 0.5 mg via nebulizer four times daily. No current facility-administered medications for this visit. Objective BP 125/82 Pulse 85 Ht 5' 7 (1.70m) Wt 157 lb 6.4 oz (71.4kg) BMI 24.65 kg/(m^2). Physical examination Physical Exam Vitals and nursing note reviewed. Constitutional: General: She is not in acute distress. Neck: Thyroid: Thyromegaly present. Cardiovascular: Rate and Rhythm: Normal rate and regular rhythm. Heart sounds: Normal heart sounds. Pulmonary: Effort: No respiratory distress. Breath sounds: Normal breath sounds. Neurological: General: No focal deficit present. Mental Status: She is alert. Psychiatric: Mood and Affect: Affect normal. Labs and imaging data: Reviewed Latest Ref Rng 11/19/2023 02/17/2024 TSI Qualitative Negative Positive ! TSI <0.55 IU/L 1.56 (H) TSH 0.270 - 4.200 mIU/L <0.005 (L) 0.006 (L) THYROID PEROXIDASE ANTIBODY <5.6 IU/mL 7.9 (H) Free T4 0.9 - 1.7 ng/dL 1.4 T3 79 - 165 ng/dL 169 (H) Thyroid ultrasound on 03/03/2019 Multinodular thyroid gland as described above. Findings are similar to comparison study 02/11/2018. The right thyroid lobe is measured 4.6 cm longitudinal by 2 cm AP by 1.5 cm transverse. There is redemonstration of a mixed solid cystic hypoechoic nodule posterior lower lobe measured 2.1 x 1.7 x 1.5 cm in size. This compares to a previous measurement of 2.3 x 1.6 x 1.7 cm. There are two additional solid hypoechoic nodules within the lobe measuring 0.3 cm and 0.4 cm in size. The left thyroid lobe is measured 3.7 x 1.1 x 1.3 cm in size. There is a solid hypoechoic nodule redemonstrated within the posterior upper lobe measured 0.5 x 0.4 x 0.4 cm in size. This compares to previous measurement of 0.6 x 0.3 x 0.5 cm. The isthmus is measured at 0.2 cm in thickness. Thyroid uptake and scan on 03/27/2024 IMPRESSION: 1. MILDLY INCREASED I-123 UPTAKE VALUES. 2. SCAN: MILDLY HETEROGENEOUS DIFFUSE UPTAKE IN THE THYROID RESULT: The I-123 uptake is 18.8% at 5 hours and 30.7% at 24 hours ( normal 10-30% at 24 hours). There is mildly heterogeneous with diffuse uptake seen in both lobes of the thyroid. Previous medical records: Reviewed Assessment & Plan Assessment: Impression: (Some elements copied from my notes 02/17/2024, which have been updated where appropriate, and all reflect current medical decision making from today, 06/11/2024) Mojgan Hu was seen today for thyroid problem. Diagnoses and all orders for this visit: Hyperthyroidism - THYROID STIMULATING HORMONE; Future - T4 FREE/FREE THYROXINE; Future - T3; Future Graves' disease Thyroid nodule Plan: Subclinical hyperthyroidism due to Graves' disease Discussed the use of small dose methimazole to control hyperthyroidism. Counseled about the side effects of methimazole including teratogenicity, agranulocytosis and hepatic injury. Patient elected to defer the treatment since her symptoms are mild. Counseled about risk of untreated hyperthyroidism including heart disease Patient would reconsider treatment if there is evidence of worsening thyroid function Repeat ultrasound next visit to evaluate the stability of the nodules I discussed the plan of care with the patient in details including different treatment options and side effects of medications prescribed in this visit. Complications of untreated or uncontrolled disease were also discussed. Patient expressed understanding and agreement. Return in about 6 months (around 12/12/2024). Greg Shipman MD [address], [facility] [address] [place] [address] This note was partially generated using [employer] voice recognition system, and there may be some incorrect words, spellings, and punctuation that were not intended as it appear in the note. documented in this encounter [facility] 03-27-2024 History of Presen t illness Narrative RADIOLOGY SERVICE PROGRESS NOTE SERVICE DATE: 03/27/2024 SERVICE TIME: 8:16 AM PATIENT IDENTITY VERIFICATION COMPLETED USING TWO (2) STANDARD IDENTIFIERS: Name and Date of confirmed by patient verbally and Name and Date of confirmed by identification band FALL SCREENING: Has the patient had 2 falls in the last year or 1 fall with injury or currently using an Ambulatory Assistive Device (Walker, Cane, Wheelchair, Crutches, etc.)? No PATIENT GENDER DATA: .female : No ALLERGIES: Reviewed and unchanged MEDICATIONS REVIEWED: No PATIENT RELEVANT IMPLANT DATA REVIEWED: Not Applicable PATIENT PRESENTS WITH AN IMPLANTABLE OR ATTACHED QUALITY ANALYST/TECHNICAL WRITER: No CREATININE: No results found for: CREAT, EGFROTH, EGFRAA P.O.C.T. RESULTS: N/A March 27, [address] PERFORMED: No IV SITE: Ambulatory: Not applicable POST EXAM PIV STATUS: Not applicable PROCEDURE TYPE: Thyroid Uptake and Scan. 508.6 microcuries on 03/26/24 at 0800 ADMINISTRATION TIME: 0800 PATIENT DISCHARGED TO: Ambulatory patient, left [place] department area. A Diagnostic radioactive procedure has taken place, with no further precautions necessary other than routine body substance precautions. More information regarding radiation safety can be found using this link: [email or web address]% 20Nuclear%20Medicine%20Procedur [email or web address] SIGNATURE: BLANCA Agee) PATIENT NAME: Mojgan Alarcon DATE: March 27, 2024 TIME: 8:16 AM PAGER/CONTACT #: documented in this encounter [facility] 03-27-2024 Note HNO ID: [id number] Author: SUNITA RAPP RT (R) Service: Nuclear Medicine Author Type: Technologist Type: Progress Notes Filed: 03/27/2024 08:17 Note Text: RADIOLOGY SERVICE PROGRESS NOTE SERVICE DATE: 03/27/2024 SERVICE TIME: 8:16 AM PATIENT IDENTITY VERIFICATION COMPLETED USING TWO (2) STANDARD IDENTIFIERS: Name and Date of confirmed by patient verbally and Name and Date of confirmed by identification band FALL SCREENING: Has the patient had 2 falls in the last year or 1 fall with injury or currently using an Ambulatory Assistive Device (Walker, Cane, Wheelchair, Crutches, etc.)? No PATIENT GENDER DATA: .female : No ALLERGIES: Reviewed and unchanged MEDICATIONS REVIEWED: No PATIENT RELEVANT IMPLANT DATA REVIEWED: Not Applicable PATIENT PRESENTS WITH AN IMPLANTABLE OR ATTACHED QUALITY ANALYST/TECHNICAL WRITER: No CREATININE: No results found for: CREAT, EGFROTH, EGFRAA P.O.C.T. RESULTS: N/A March 27, [address] PERFORMED: No IV SITE: Ambulatory: Not applicable POST EXAM PIV STATUS: Not applicable PROCEDURE TYPE: Thyroid Uptake and Scan. 508.6 microcuries on 03/26/24 at 0800 ADMINISTRATION TIME: 0800 PATIENT DISCHARGED TO: Ambulatory patient, left [place] department area. A Diagnostic radioactive procedure has taken place, with no further precautions necessary other than routine body substance precautions. More information regarding radiation safety can be found using this link: [email or web address]%20Nuclear%20Medici [email or web address] SIGNATURE: Sunita Rapp RT(R) PATIENT NAME: Mojgan Alarcon DATE: March 27, 2024 TIME: 8:16 AM PAGER/CONTACT #: [facility] 03-26-2024 History of Presen t illness Narrative RADIOLOGY SERVICE PROGRESS NOTE SERVICE DATE: 03/26/2024 SERVICE TIME: 8:17 AM PATIENT IDENTITY VERIFICATION COMPLETED USING TWO (2) STANDARD IDENTIFIERS: Name and Date of confirmed by patient verbally FALL SCREENING: Has the patient had 2 falls in the last year or 1 fall with injury or currently using an Ambulatory Assistive Device (Walker, Cane, Wheelchair, Crutches, etc.)? No PATIENT GENDER DATA: .female : No ALLERGIES: Reviewed and unchanged MEDICATIONS REVIEWED: Yes PATIENT RELEVANT IMPLANT DATA REVIEWED: Not Applicable PATIENT PRESENTS WITH AN IMPLANTABLE OR ATTACHED QUALITY ANALYST/TECHNICAL WRITER: No CREATININE: No results found for: CREAT, EGFROTH, EGFRAA P.O.C.T. RESULTS: N/A March 26, [address] PERFORMED: No IV SITE: Ambulatory: Not applicable POST EXAM PIV STATUS: Not applicable PROCEDURE TYPE: NM INJECT: Thyroid Uptake and Scan. 508.6 mCi Nal-123 Capsules. No other medications given.. ADMINISTRATION TIME: 08:10 PATIENT DISCHARGED TO: Ambulatory patient, left [place] department area. A Diagnostic radioactive procedure has taken place, with no further precautions necessary other than routine body substance precautions. More information regarding radiation safety can be found using this link: [email or web address]% 20Nuclear%20Medicine%20Procedur [email or web address] SIGNATURE: RT Willis(R) PATIENT NAME: Mojgan Alarcon DATE: March 26, 2024 TIME: 8:17 AM PAGER/CONTACT #: documented in this encounter [facility] 03-26-2024 Note HNO ID: [id number] Author: DEYANIRA BARAJAS RT(R) Service: Nuclear Medicine Author Type: Technologist Type: Progress Notes Filed: 03/26/2024 08:19 Note Text: RADIOLOGY SERVICE PROGRESS NOTE SERVICE DATE: 03/26/2024 SERVICE TIME: 8:17 AM PATIENT IDENTITY VERIFICATION COMPLETED USING TWO (2) STANDARD IDENTIFIERS: Name and Date of confirmed by patient verbally FALL SCREENING: Has the patient had 2 falls in the last year or 1 fall with injury or currently using an Ambulatory Assistive Device (Walker, Cane, Wheelchair, Crutches, etc.)? No PATIENT GENDER DATA: .female : No ALLERGIES: Reviewed and unchanged MEDICATIONS REVIEWED: Yes PATIENT RELEVANT IMPLANT DATA REVIEWED: Not Applicable PATIENT PRESENTS WITH AN IMPLANTABLE OR ATTACHED QUALITY ANALYST/TECHNICAL WRITER: No CREATININE: No results found for: CREAT, EGFROTH, EGFRAA P.O.C.T. RESULTS: N/A March 26, [address] PERFORMED: No IV SITE: Ambulatory: Not applicable POST EXAM PIV STATUS: Not applicable PROCEDURE TYPE: NM INJECT: Thyroid Uptake and Scan. 508.6 mCi Nal-123 Capsules. No other medications given.. ADMINISTRATION TIME: 08:10 PATIENT DISCHARGED TO: Ambulatory patient, left [place] department area. A Diagnostic radioactive procedure has taken place, with no further precautions necessary other than routine body substance precautions. More information regarding radiation safety can be found using this link: [email or web address]%20Nuclear%20Medici [email or web address] SIGNATURE: RT Willis(Emerald) PATIENT NAME: Mojgan Alarcon DATE: March 26, 2024 TIME: 8:17 AM PAGER/CONTACT #: [facility] 02-19-2024 Miscellaneous Notes LVM asking for best days and times for scan JAMES Lu February 19, 2024 4:35 PM LVM for patient to call with availability to schedule JAMES Lu February 19, 2024 9:19 AM Please schedule thyroid uptake and scan documented in this encounter [facility] 02-17-2024 Note HNO ID: [id number] Author: GREG SHIPMAN MD Service: ? Author Type: Physician Type: Progress Notes Filed: 02/17/2024 15:53 Note Text: PCP: Montse Almeida MD. Subjective The history is provided by the patient. Mojgan Alarcon is a 23 year old White female with PMHx of asthma who presented to the endocrine clinic for hyperthyroidism evaluation and management History of present illness Initial History: (02/17/24) The patient has been followed by endocrine surgery for stable thyroid nodularity with dominant 2.1 cm in the right side. Nodule was first noted around 2017 by the patient which was evaluated by biopsy and came back benign. The patient has been feeling off lately. She has noticed fine tremor mostly at work for the past couple months. 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 Review of Systems Constitutional: Positive for malaise/fatigue. Negative for diaphoresis and weight loss. Cardiovascular: Positive for palpitations. Gastrointestinal: Negative for constipation and diarrhea. Neurological: Positive for tremors. Psychiatric/Behavioral: The patient is nervous/anxious. HISTORY REVIEWED (electronic chart updated): PAST MEDICAL HISTORY Diagnosis Date Asthma PCOS (polycystic ovarian syndrome) PAST SURGICAL HISTORY Procedure Laterality Date PAST SURGICAL HISTORY OF wisdom teeth removal History reviewed. No pertinent family history. Social History Tobacco Use Smoking status: Never Smokeless tobacco: Never Substance Use Topics Alcohol use: No Drug use: No Current Outpatient Medications Medication Sig Dispense Refill fexofenadine (CHRISTINE) 180 mg tablet Take 1 tablet by mouth once daily. fluticasone (FLONASE) 50 mcg/actuation nasal spray instill 1 spray into each nostril one to two times a day ELURYNG 0.12-0.015 mg/24 hr vaginal ring INSERT RING VAGINALLY, WEAR FOR 3 WEEKS, AND REMOVE FOR [address] NEW RING AND REPEAT. azelastine HCl (AZELASTINE NASAL) Use in the nose. montelukast (SINGULAIR) 10 mg tablet Take 10 mg by mouth once daily. 10 fluticasone-vilanterol (BREO ELLIPTA) 200-25 mcg/dose inhaler MOMETASONE FUROATE (NASONEX NASAL) Use in the nose. ALBUTEROL SULFATE (PROAIR HFA INHALATION) Inhale as instructed. Levalbuterol HCl (XOPENEX) 1.25 mg/0.5 mL nebulizer solution Use 1 Ampule via nebulizer every 4 hours as needed. ipratropium (ATROVENT) 0.02 % nebulizer solution Use 0.5 mg via nebulizer four times daily. No current facility-administered medications for this visit. Objective Ht 5' 4 (1.63m) Physical examination Physical Exam Vitals and nursing note reviewed. Constitutional: General: She is not in acute distress. Neck: Thyroid: Thyromegaly present. Cardiovascular: Rate and Rhythm: Normal rate and regular rhythm. Heart sounds: Normal heart sounds. Pulmonary: Effort: No respiratory distress. Breath sounds: Normal breath sounds. Neurological: General: No focal deficit present. Mental Status: She is alert. Psychiatric: Mood and Affect: Affect normal. Labs and imaging data: Reviewed Latest Ref Rng 11/19/2023 TSH 0.270 - 4.200 mIU/L <0.005 (L) THYROID PEROXIDASE ANTIBODY <5.6 IU/mL 7.9 (H) Legend: (L) Low (H) High Thyroid ultrasound on 03/03/2019 Multinodular thyroid gland as described above. Findings are similar to comparison study 02/11/2018. The right thyroid lobe is measured 4.6 cm longitudinal by 2 cm AP by 1.5 cm transverse. There is redemonstration of a mixed solid cystic hypoechoic nodule posterior lower lobe measured 2.1 x 1.7 x 1.5 cm in size. This compares to a previous measurement of 2.3 x 1.6 x 1.7 cm. There are two additional solid hypoechoic nodules within the lobe measuring 0.3 cm and 0.4 cm in size. The left thyroid lobe is measured 3.7 x 1.1 x 1.3 cm in size. There is a solid hypoechoic nodule redemonstrated within the posterior upper lobe measured 0.5 x 0.4 x 0.4 cm in size. This compares to previous measurement of 0.6 x 0.3 x 0.5 cm. The isthmus is measured at 0.2 cm in thickness. Previous medical records: Reviewed Assessment AND Plan Assessment: Mojgan Hu was seen today for new patient evaluation. 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 Counseled about the side effects of methimazole including teratogenicity, agranulocytosis and hepatic injury. Will di (more content not included)... [facility] 02-17-2024 History of Presen t illness Narrative PCP: Montse Almeida MD. Subjective The history is provided by the patient. Mojgan Hickskareem is a 23 year old White female with PMHx of asthma who presented to the endocrine clinic for hyperthyroidism evaluation and management History of present illness Initial History: (02/17/24) The patient has been followed by endocrine surgery for stable thyroid nodularity with dominant 2.1 cm in the right side. Nodule was first noted around 2018 by the patient which was evaluated by biopsy and came back benign. The patient has been feeling off lately. She has noticed fine tremor mostly at work for the past couple months. 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 Review of Systems Constitutional: Positive for malaise/fatigue. Negative for diaphoresis and weight loss. Cardiovascular: Positive for palpitations. Gastrointestinal: Negative for constipation and diarrhea. Neurological: Positive for tremors. Psychiatric/Behavioral: The patient is nervous/anxious. HISTORY REVIEWED (electronic chart updated): PAST MEDICAL HISTORY Diagnosis Date Asthma PCOS (polycystic ovarian syndrome) PAST SURGICAL HISTORY Procedure Laterality Date PAST SURGICAL HISTORY OF wisdom teeth removal History reviewed. No pertinent family history. Social History Tobacco Use Smoking status: Never Smokeless tobacco: Never Substance Use Topics Alcohol use: No Drug use: No Current Outpatient Medications Medication Sig Dispense Refill fexofenadine (CHRISTINE) 180 mg tablet Take 1 tablet by mouth once daily. fluticasone (FLONASE) 50 mcg/actuation nasal spray instill 1 spray into each nostril one to two times a day ELURYNG 0.12-0.015 mg/24 hr vaginal ring INSERT RING VAGINALLY, WEAR FOR 3 WEEKS, AND REMOVE FOR [address] NEW RING AND REPEAT. azelastine HCl (AZELASTINE NASAL) Use in the nose. montelukast (SINGULAIR) 10 mg tablet Take 10 mg by mouth once daily. 10 fluticasone-vilanterol (BREO ELLIPTA) 200-25 mcg/dose inhaler MOMETASONE FUROATE (NASONEX NASAL) Use in the nose. ALBUTEROL SULFATE (PROAIR HFA INHALATION) Inhale as instructed. Levalbuterol HCl (XOPENEX) 1.25 mg/0.5 mL nebulizer solution Use 1 Ampule via nebulizer every 4 hours as needed. ipratropium (ATROVENT) 0.02 % nebulizer solution Use 0.5 mg via nebulizer four times daily. No current facility-administered medications for this visit. Objective Ht 5' 4 (1.63m) Physical examination Physical Exam Vitals and nursing note reviewed. Constitutional: General: She is not in acute distress. Neck: Thyroid: Thyromegaly present. Cardiovascular: Rate and Rhythm: Normal rate and regular rhythm. Heart sounds: Normal heart sounds. Pulmonary: Effort: No respiratory distress. Breath sounds: Normal breath sounds. Neurological: General: No focal deficit present. Mental Status: She is alert. Psychiatric: Mood and Affect: Affect normal. Labs and imaging data: Reviewed Latest Ref Rng 11/19/2023 TSH 0.270 - 4.200 mIU/L <0.005 (L) THYROID PEROXIDASE ANTIBODY <5.6 IU/mL 7.9 (H) Legend: (L) Low (H) High Thyroid ultrasound on 03/03/2019 Multinodular thyroid gland as described above. Findings are similar to comparison study 02/11/2018. The right thyroid lobe is measured 4.6 cm longitudinal by 2 cm AP by 1.5 cm transverse. There is redemonstration of a mixed solid cystic hypoechoic nodule posterior lower lobe measured 2.1 x 1.7 x 1.5 cm in size. This compares to a previous measurement of 2.3 x 1.6 x 1.7 cm. There are two additional solid hypoechoic nodules within the lobe measuring 0.3 cm and 0.4 cm in size. The left thyroid lobe is measured 3.7 x 1.1 x 1.3 cm in size. There is a solid hypoechoic nodule redemonstrated within the posterior upper lobe measured 0.5 x 0.4 x 0.4 cm in size. This compares to previous measurement of 0.6 x 0.3 x 0.5 cm. The isthmus is measured at 0.2 cm in thickness. Previous medical records: Reviewed Assessment & Plan Assessment: Mojgan Hu was seen today for new patient evaluation. 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 Counseled about the side effects of methimazole including teratogenicity, agranulocytosis and hepatic injury. Will discuss other options in details including thyroidectomy and radioactive iodine treatment during upcoming visit I discussed the plan of care with the patient in details including different treatment options and side effects of medications prescribed in this visit. Complications of untreated or uncontrolled disease were also discussed. Patient expressed understanding and agreement. Return in about 3 months (around 05/18/2024). Greg Shipman MD [facility] Endocrinology - [address], [address] [place] [address] This note was partially generated using Jolancer recognition system, and there may be some incorrect words, spellings, and punctuation that were not intended as it appear in the note. documented in this encounter [facility] Evaluation note Diagnosis Onset Date Asthma chronic Seasonal allergies chronic [facility] Work Phone: Evaluation note* Diagnosis Hyperthyroidism- Primary Thyrotoxicosis without mention of goiter or other cause, without mention of thyrotoxic crisis or storm Nodular goiter Unspecified nontoxic nodular goiter documented [facility] this [facility] Diagnosis Hyperthyroidism- Primary Thyrotoxicosis without mention of goiter or other cause, without mention of thyrotoxic crisis or storm documented in this [facility] Diagnosis Hyperthyroidism Thyrotoxicosis without mention of goiter or other cause, without mention of thyrotoxic crisis or storm documented in this [facility] Diagnosis Hyperthyroidism- Primary Thyrotoxicosis without mention of goiter or other cause, without mention of thyrotoxic crisis or storm Graves' disease Toxic diffuse goiter without mention of thyrotoxic crisis or storm Thyroid nodule Nontoxic uninodular goiter documented [facility] Diagnosis Hyperthyroidism- Primary Thyrotoxicosis without mention of goiter or other cause, without mention of thyrotoxic crisis or storm documented [facility] Diagnosis Encounter for gynecological examination (general) (routine) without abnormal findings- Primary Screening for cervical cancer Screening for malignant neoplasm of the cervix Hirsutism documented in this [facility]* Diagnosis Graves' disease- Primary Toxic diffuse goiter without mention of thyrotoxic crisis or storm Thyroid nodule Nontoxic uninodular goiter documented in this encounter [facility]* Diagnosis Graves' disease Toxic diffuse goiter without mention of thyrotoxic crisis or storm Thyroid nodule Nontoxic uninodular goiter documented in this [facility]* Diagnosis Graves' disease- Primary Toxic diffuse goiter without mention of thyrotoxic crisis or storm Thyroid nodule Nontoxic uninodular goiter Polyuria documented in this [facility] (n[facility]ative)* Diagnostic Procedure Only (Routine) - Pending Review Specialty Diagnoses / Procedures Referred By Phil t Referred To Contact MOLECULAR & FUNCTIONAL IMAGING Diagnoses Hyperthyroidism Procedures NM THY UPTAKE AND SCAN THYROID UPTAKE W/BLOOD FLOW SNGLE/MULT Greg Arechiga MD [address] [place] [address] Molecular & Functional Imaging [address] [place] [address] Referral ID Status Reason Start Date Expiration Date Visits Requested Visits Authorized [id number] Pending Review Auto-Generat ed Referral 02/17/2024 03/18/2025 1 1 [facility] for referral (narrative)* Diagnostic Procedure Only (Routine) - Pending Review Specialty Diagnoses / Procedures Referred By Phil prakash Referred To Contact MOLECULAR & FUNCTIONAL IMAGING Diagnoses Hyperthyroidism Procedures NM THY UPTAKE AND SCAN THYROID UPTAKE W/BLOOD FLOW SNGLE/MULT Greg Arechiga MD [address] [place] [id number] Molecular & Functional Imaging [address] [place] [address] Referral ID Status Reason Start Date Expiration Date Visits Requested Visits Authorized [id number] Pending Review Auto-Generat ed Referral 02/18/2024 03/19/2025 1 1 [facility] for referral (narrative)* Diagnostic Procedure Only (Routine) - Authorized Specialty Diagnoses / Procedures Referred By Phil prakash Referred To Contact US IMAGING Diagnoses Graves' disease Thyroid nodule Procedures US THYROID/PARATHYROID US SOFT TISSUE HEAD & NECK REAL TIME IMGE Greg Cotton MD [address] [place] [address] Us Imaging [facility] Referral ID Status Reason Start Date Expiration Date Visits Requested Visits Authorized [id number] Authorized Auto-Generat ed Referral 11/30/2024 12/30/2025 1 1 [facility] for referral (narrative)* Diagnostic Procedure Only (Routine) - Closed Specialty Diagnoses / Procedures Referred By Phil prakash Referred To Contact US IMAGING Diagnoses Graves' disease Thyroid nodule Procedures US THYROID/PARATHYROID US SOFT TISSUE HEAD & NECK REAL TIME IMGE Greg Cotton MD [address] [place] [address] [place] [address] Referral ID Status Reason Start Date Expiration Date V isits Requested Visits Authorized [id number] Closed Auto-Generate d Referral 11/30/2024 12/30/2025 1 1 [facility] for visit Narrative* Diagnostic Procedure Only (Routine) - Closed Specialty Diagnoses / Procedures Referred By Phil prakash Referred To Contact MOLECULAR & FUNCTIONAL IMAGING Diagnoses Hyperthyroidism Procedures NM THY UPTAKE AND SCAN THYROID UPTAKE W/BLOOD FLOW SNGLE/MULT HUMBERTO Greg Milan MD [address] [place] [address] Molecular & Functional Imaging [address] [place] [address] Referral ID Status Reason Start Date Expiration Date V isits Requested Visits Authorized [id number] Closed Auto-Generate d Referral 02/18/2024 03/19/2025 1 1 [facility] for visit Narrative* Diagnostic Procedure Only (Routine) - Closed Specialty Diagnoses / Procedures Referred By Phil prakash Referred To Contact US IMAGING Diagnoses Graves' disease Thyroid nodule Procedures US THYROID/PARATHYROID US SOFT TISSUE HEAD & NECK REAL TIME IMGE Greg Cotton MD [address] [place] [address] [place] [address] Referral ID Status Reason Start Date Expiration Date V isits Requested Visits Authorized [id number] Closed Auto-Generate d Referral 11/30/2024 12/30/2025 [address] [facility] Summary Purpose Family History No Family History Records Found Relationship Condition Age at Onset Recorded Date/T rubin sister Asthma Unknown brother Asthma Unknown Advance Directives No Advanced Directives Records Found Advance Directive Response Recorded Date/ Time Living Will No November 12 018 1:48am Power of Suction Plate Roller Hand No November 12, 2018 1:48am Chief Complaint and Reason for Visit Chief Complaint 1 Y FU NODULES Reason for Visit Asthma Seasonal allergies Additional Source Comments INFORMATION SOURCE (unrecogn ized section and content) DATE CREATED AUTHOR 03/22/2019 [facility] DATE CREATED AUTHOR AUTHOR'S ORGANIZ ATION 08/17/2019 [facility] DATE CREATED AUTHOR AUTHOR'S ORGANIZ ATION 06/06/2020 [facility] DATE CREATED AUTHOR AUTHOR'S ORGANIZ ATION 07/11/2020 [facility] DATE CREATED AUTHOR AUTHOR'S ORGANIZ ATION 11/30/2024 [facility] DATE CREATED AUTHOR AUTHOR'S ORGANIZ ATION 12/15/2024 [facility] DATE CREATED AUTHOR AUTHOR'S ORGANIZ ATION 04/15/2025 [facility] Care Teams (unrecognized sec tion and content) Team Status: Active Member Role Status Dates Dr. Angelia Weiss MD Family Provider Active Dr. Montse Almeida MD Primary Care Provider Active Team Status: Inactive Member Role Status Dates Dr. Montse Almeida MD Primary Care Provider, Referrin g Provider Active Dr. Dexter Peraza MD Attending Provider Active Team Status: Inactive Member Role Status Dates Dr. Montse Almeida MD Primary Care Prov ider, Attending Provider, Referring Provider Active Area Captain Relationship Specialty Start Date End Date Montse Almeida MD [address] [place], [place] [address] PCP - General Family Medicine 11/19/23 Dexter Peraza MD [address] [place], [place] [address] Pulmonary Disease 06/12/18 Bronson Perez MD [address] [place] [address] Allergy 06/12/18 Melani Duong MD 1 [facility] [address] [place], [place] [phone] General Surgery 11/19/23 Area Captain Relationship Specialty Start Date End Date Montse Almeida MD [address] [place] [address] [place], [place] [address] PCP - General Family Medicine 11/19/23 Dexter Peraza MD [address] [place] [address] [place], [place] [phone] Pulmonary Disease 06/12/18 Bronson Perez MD [address] [place] [address] Allergy 06/12/18 Melani Duong MD 1 [facility] [address] [place], [place] [phone] General Surgery 11/19/23 Area Captain Relationship Specialty Start Date End Date Montse Almeida MD [address] [place], [place] [phone] PCP - General Family Medicine 11/19/23 Dexter Peraza MD [address] [place], [place] [address] Pulmonary Disease 06/12/18 Bronson Perez MD [address] [place], [place] [address] Allergy 06/12/18 Melani Duong MD [address] [place], [place] [phone] General Surgery 11/19/23 Area Captain Relationship Specialty Start Date End Date Montse Almeida MD [address] [place] [address] [place], [place] [address] PCP - General Family Medicine 11/19/23 Dexter Peraza MD [address] [place] [address] [place], [place] [address] Pulmonary Disease 06/12/18 Bronson Perez MD [address] [place] [address] [place], [place] [address] Allergy 06/12/18 Melani Duong MD [address] [facility] [address] [place], [place] [phone] General Surgery 11/19/23 Area Captain Relationship Specialty Start Date End Date Montse Almeida MD [address] [place], [place] [phone] PCP - General Family Medicine 11/19/23 Dexter Peraza MD [address] [place], [place] [address] Pulmonary Disease 06/12/18 Bronson Perez MD [address] [place] [address] Allergy 06/12/18 Melani Duong MD [address] [place] [address] General Surgery 11/19/23 Area Captain Relationship Specialty Start Date End Date Montse Almeida MD [address] [place] [address] [place], [place] [address] PCP - General Family Medicine 11/19/23 Dexter Peraza MD [address] [place], [place] [address] Pulmonary Disease 06/12/18 Bronson Perez MD [address] [place], [place] [address] Allergy 06/12/18 Melani Duong MD [address] [place] [address] General Surgery 11/19/23 Area Captain Relationship Specialty Start Date End Date Montse Almeida MD [address] [place], [place] [address] PCP - General Family Medicine 11/19/23 Dexter Peraza MD [address] [place] [address] Pulmonary Disease 06/12/18 Bronson Perez MD [address] [place] [address] Allergy 06/12/18 Melani Duong MD [address] [place] [address] General Surgery 11/19/23 Area Captain Relationship Specialty Start Date End Date Montse Almeida MD [address] [place], [place] [phone] PCP - General Family Medicine 11/19/23 Dexter Peraza MD [address] [place] [address] Pulmonary Disease 06/12/18 Bronson Perez MD [address] [place], [place] [address] Allergy 06/12/18 Melani Duong MD [address] [facility] [address] [facility] [address] [place] [address] General Surgery 11/19/23 Area Captain Relationship Specialty Start Date End Date Montse Almeida MD [address] [place], [place] [address] PCP - General Family Medicine 11/19/23 Dexter Peraza MD [address] [facility] [place] [address] Pulmonary Disease 06/12/18 Bronson Perez MD [address] [place] [address] Allergy 06/12/18 Melani Duong MD [address] [facility] [address] [place], [place] [phone] General Surgery 11/19/23 Area Captain Relationship Specialty Start Date End Date Montse Almeida MD [address] [place] [address] PCP - General Family Medicine 11/19/23 Dexter Peraza MD [address] [place] [address] Pulmonary Disease 06/12/18 Bronson Perez MD [address] [place], [place] [phone] Allergy 06/12/18 Melani Duong MD [address] [facility] [address] [place], [place] [phone] General Surgery 11/19/23 Area Captain Relationship Specialty Start Date End Date Montse Almeida MD [address] [place] [address] PCP - General Family Medicine 11/19/23 Dexter Peraaz MD [address] [place] [place] [address] Pulmonary Disease 06/12/18 Bronson Perez MD [address] [place], [place] [address] Allergy 06/12/18 Melani Duong MD [address] [facility] [address] [place], [place] [phone] General Surgery 11/19/23 Goals (unrecognized section and content) Goals may be documented in a n alternate section Source Comments (unrecognize d section and content) In the event this informatio n is protected by the Federal Confidentiality of Alcohol and Drug Abuse Patient Records regulations: The Federal rules restrict any use of the information to criminally investigate or prosecute any alcohol or drug abuse patient.[facility] the event this information is protected by the Federal Confidentiality of Alcohol and Drug Abuse Patient Records regulations: The Federal rules restrict any use of the information to criminally investigate or prosecute any alcohol or drug abuse patient.[facility] the event this information is protected by the Federal Confidentiality of Alcohol and Drug Abuse Patient Records regulations: The Federal rules restrict any use of the information to criminally investigate or prosecute any alcohol or drug abuse patient.[facility] CenterIn the event this information is protected by the Federal Confidentiality of Alcohol and Drug Abuse Patient Records regulations: The Federal rules restrict any use of the information to criminally investigate or prosecute any alcohol or drug abuse patient.[facility] CenterIn the event this information is protected by the Federal Confidentiality of Alcohol and Drug Abuse Patient Records regulations: The Federal rules restrict any use of the information to criminally investigate or prosecute any alcohol or drug abuse patient.[facility] CenterIn the event this information is protected by the Federal Confidentiality of Alcohol and Drug Abuse Patient Records regulations: The Federal rules restrict any use of the information to criminally investigate or prosecute any alcohol or drug abuse patient.[facility] CenterIn the event this information is protected by the Federal Confidentiality of Alcohol and Drug Abuse Patient Records regulations: The Federal rules restrict any use of the information to criminally investigate or prosecute any alcohol or drug abuse patient.[facility] CenterIn the event this information is protected by the Federal Confidentiality of Alcohol and Drug Abuse Patient Records regulations: The Federal rules restrict any use of the information to criminally investigate or prosecute any alcohol or drug abuse patient.[facility] CenterIn the event this information is protected by the Federal Confidentiality of Alcohol and Drug Abuse Patient Records regulations: The Federal rules restrict any use of the information to criminally investigate or prosecute any alcohol or drug abuse patient.[facility] CenterIn the event this information is protected by the Federal Confidentiality of Alcohol and Drug Abuse Patient Records regulations: The Federal rules restrict any use of the information to criminally investigate or prosecute any alcohol or drug abuse patient.[facility] CenterIn the event this information is protected by the Federal Confidentiality of Alcohol and Drug Abuse Patient Records regulations: The Federal rules restrict any use of the information to criminally investigate or prosecute any alcohol or drug abuse patient.[facility] CenterIn the event this information is protected by the Federal Confidentiality of Alcohol and Drug Abuse Patient Records regulations: The Federal rules restrict any use of the information to criminally investigate or prosecute any alcohol or drug abuse patient.[facility] Reason for Visit (unrecogniz ed section and content) Reason Comments New Patient Evaluation Reason Comments Procedure Thyroid uptake and s can Reason Comments Thyroid Problem Reason Comments Yearly Exam Reason Comments Patient Question Reason Comments Procedure Thyroid ultrasound Reason Comments Gynecomastia Follow Up FOR RECORDS PERTAINING TO PATIENTS WHO ARE OR HAVE BEEN ENROLLED IN A CHEMICAL DEPENDENCY/SUBSTANCEABUSE PROGRAM, SOME INFORMATION MAY BE OMITTED. This clinical summary was aggregated from multiple sources. Caution should be exercised in using it in the provision of clinical care. This summary normalizes information from multiple sources, and as a consequence, information in this document may materially change the coding, format and clinical context of patient data. In addition, data may be omitted in some cases. CLINICAL DECISIONS SHOULD BE BASED ON THE PRIMARY CLINICAL RECORDS. [facility] provides no warranty or guarantee of the accuracy or completeness of information in this document.
== END | disposition home or self-care (01) ==
PROVIDERS: PCP Family Medicine; Referring Provider Obstetrics & Gynecology; Visit Provider Obstetrics & Gynecology
DX: N84.2 Polyp of vagina (principal)
CPT/HCPCS: 88305